=== PATIENT | male | born 1980 | race Hispanic/Latino ===

== ENCOUNTER 2017-01-04 16:51 | Inpatient (IN) | payer MEDICAID, OTHER ==
[2017-01-04] MEDS ORDERED: Morphine 2 mg/ml ISec IVP STA ×2 (17:14→18:08)
[2017-01-04] MEDS: Sodium Chloride 0.9% 1,000 ML IV SCH (17:22)
--- NOTE | 2017-01-04 17:22 | ED PDOC ---
Arrival/HPI - General Chief Complaint: Back Pain Time Seen by Provider: 01/04/17 17:05 Historian: Patient - History of Present Illness Narrative History of Present Illness (Text): 01/04/17 17:23 A 36 year old male, whose past medical history includes kidney stones, presents to the emergency department complaining of left and right sided flank pain, nausea and vomiting that developed two days ago. Patient also reports abdominal pain, right testicular pain and appetite changes but denies any fever, chills, shortness of breath, chest pain or any other complaints at this time. PMD: None Time/Duration: Other (2 days) Symptom Onset: Sudden Symptom Course: Unchanged Activities at Onset: Rest Context: Home Past Medical History - Provider Review Nursing Documentation Reviewed: Yes - Past History Past History: Non-Contributing - Infectious Disease Hx of Infectious Diseases: None, MRSA - Tetanus Immunization Tetanus Immunization: >10 years Ago - Past Medical History Past Medical History: Non-Contributing - Cardiac Hx Cardiac Disorders: No - Pulmonary Hx Respiratory Disorders: No - Neurological Hx Neurological Disorder: No - HEENT Hx HEENT Disorder: No - Renal Hx Renal Disorder: No - Endocrine/Metabolic Hx Endocrine Disorders: No - Hematological/Oncological Hx Blood Disorders: No - Integumentary Hx Dermatological Disorder: Yes (Psoriasis (Left Forearm and Scrotum)) Hx Psoriasis: Yes - Musculoskeletal/Rheumatological Hx Musculoskeletal Disorders: Yes (Sciatica) Hx Back Pain: Yes Hx Falls: No - Gastrointestinal Hx Gastrointestinal Disorders: No - Genitourinary/Gynecological Hx Genitourinary Disorders: No - Psychiatric Hx Psychophysiologic Disorder: No Hx Substance Use: No - Past Surgical History Past Surgical History: Non-Contributing - Surgical History Other/Comment: 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 - Anesthesia Hx Anesthesia: No - Suicidal Assessment Feels Threatened In Home Enviroment: No Family/Social History - Physician Review Nursing Documentation Reviewed: Yes Family/Social History: No Known Family HX Smoking Status: Former Smoker Hx Alcohol Use: No Hx Substance Use: No Hx Substance Use Treatment: No Allergies/Home Meds Allergies/Adverse Reactions: Allergies sun Allergy (Uncoded 01/04/17 17:03) SWELLING Home Medications: Home Meds Medication Instructions Recorded Confirmed No Known Home Med 01/04/17 01/04/17 Review of Systems - Physician Review All systems were reviewed & negative as marked: Yes - Review of Systems Constitutional: absent: Fevers, Other (chills) Respiratory: absent: SOB Cardiovascular: absent: Chest Pain Gastrointestinal: Abdominal Pain, Nausea, Vomiting, Appetite Changes Genitourinary Male: Other (right testicular pain) Musculoskeletal: Back Pain (right and left sided flank pain) Physical Exam - Physical Exam Narrative Physical Exam (Text): 01/04/17 17:21 Head: Atraumatic. Normocephalic. Eyes: PERRL. EOMI. Conjunctivae are not pale. ENT: Mucous membranes are moist and intact. Oropharynx is clear and symmetric. Neck: Supple. Full ROM. No JVD. No lymphadenopathy. Cardiovascular: Tachycardic. Pulmonary/Chest: No evidence of respiratory distress. Clear to auscultation bilaterally. No wheezing, rales or rhonchi. Abdominal: Soft and non-distended. There is no tenderness. No rebound, guarding, or rigidity. No organomegaly. Good bowel sounds. Back: No CVA tenderness. Genitourinary: No testicular erythema, edema or masses. Extremities: No edema. No cyanosis. No clubbing. Full range of motion in all extremities. No calf tenderness. Skin: Diaphoretic. Neurological: Alert, awake, and oriented to person, place, time, and situation. Normal speech. Psychiatric: Good eye contact. Normal interaction, affect, and behavior. Vital Signs Reviewed: Yes Vital Signs Temp Pulse Resp BP Pulse Ox 01/04/17 18:24 82 18 149/98 H 01/04/17 17:00 98 F 142 H 17 153/100 H 97 Temperature: Afebrile Blood Pressure: Hypertensive Pulse: Tachycardic Respiratory Rate: Normal Appearance: Positive for: Uncomfortable Pain Distress: Mild Mental Status: Positive for: Alert and Oriented X 3 Medical Decision Making ED Course and Treatment: 01/04/17 17:19 Impression: A 36 year old male with left and right sided flank pain, nausea and vomiting. Differential Diagnosis included but are not limited to: renal colic vs. biliary colic vs. colitis Plan: -- EKG -- chest xray -- CT abd/pelvis -- labs -- Urinalysis -- Morphine, IV fluids, Toradol, Zofran -- Reassess and disposition Prior Visits: Notes and results from previous visits were reviewed. Patient was last seen in the emergency department on 03/06/16 for evaluation of bilateral eye soreness and redness. Progress Notes: 01/04/17 18:11 CT Abdomen and Pelvis without intravenous contrast Creator : RAMYA JHOANSEN MD FINDINGS: LOWER THORAX: No infiltrate. Noncalcified 5 mm left lower lobe nodule (series 2 , image 21). No followup required as per Fleischner society criteria. LIVER: Normal size and contour. Diffusely diminished attenuation consistent with fatty infiltration. No mass. No biliary ductal dilatation. GALLBLADDER AND BILE DUCTS: Unremarkable. PANCREAS: Unremarkable. No gross lesion or ductal dilatation. SPLEEN: Unremarkable. ADRENALS: Unremarkable. No mass. KIDNEYS AND URETERS: Unremarkable. No hydronephrosis. No solid mass. No urinary calculus. No hydroureter. VASCULATURE: Unremarkable. No aortic aneurysm. BOWEL: Sigmoid diverticulosis. No evidence of diverticulitis. No bowel obstruction. No other abnormal bowel loops are identified. APPENDIX: Unremarkable. Normal appendix. PERITONEUM: Unremarkable. No free fluid. No free air. LYMPH NODES: Unremarkable. No enlarged lymph nodes. BLADDER: Unremarkable. REPRODUCTIVE: Normal prostate BONES: Degenerative disc disease at L4-5. No acute fracture. IMPRESSION: No evidence of urinary calculus. Fatty infiltration of the liver. Degenerative disc disease at L4-5. 01/04/17 18:59 CHEST RADIOGRAPH, 1 VIEW Creator : Jesus Elder MD IMPRESSION: No active disease. US Abdomen Complete FINDINGS: Liver: There is diffuse increased echogenicity to the liver. There is hepatopedal flow in the main portal vein. Gallbladder: Gallbladder is distended with no stones, sludge or wall thickening. Common bile duct: Common bile duct measures 4.9 mm in diameter. Pancreas: Pancreas is almost completely obscured by bowel gas. Kidneys: Kidneys are unremarkable. Spleen:Spleen is unremarkable. Aorta: Body habitus limits visualization of aorta and inferior vena cava. Inferior vena cava: See above. IMPRESSION: Fatty liver; no gallstones or ductal dilatation; no hydronephrosis Dictated and Authenticated by: Staci Buck MD 01/04/2017 8:29 PM Eastern Time ([place] & [place]) 01/04/17 20:35 Prior to patient's lab work coming back, patient's prior visits and labs were reviewed. Patient denied any allergies or renal history. Toradol and morphine were ordered prior to patient's labs being available on today's visit. - Lab Interpretations Lab Results: 01/04/17 17:20 01/04/17 17:20 Lab Results 01/04/17 17:45: Urine Color Yellow, Urine Appearance Clear, Urine pH 6.0, Ur Specific [place] 1.010, Urine Protein 30 H, Urine Glucose (UA) 100 H, Urine Ketones Negative, Urine Blood Trace-lysed H, Urine Nitrate Negative, Urine Bilirubin Negative, Urine Urobilinogen 0.2, Ur Leukocyte Esterase Negative, Urine RBC 1 - 3, Urine WBC 0 - 2 01/04/17 17:20: Sodium 138, Potassium 4.0, Chloride 99, Carbon Dioxide 23, Anion Gap 20, BUN 34 H, Creatinine 6.0 H, Est GFR ( Amer) 13, Est GFR ( Non-Af Amer) 11, Random Glucose 222 H, Calcium 10.9 H, Total Bilirubin 1.0, AST 27, ALT 65 H, Alkaline Phosphatase 86, Lactate Dehydrogenase 502, Total Creatine Kinase 35, Troponin I < 0.01, Total Protein 7.5, Albumin 4.5, Globulin 3.0, Albumin/Globulin Ratio 1.5, Amylase 56, Lipase 80 01/04/17 17:20: PT 11.4, INR 1.06, APTT 27.9 01/04/17 17:20: WBC 8.4 D, RBC 5.18, Hgb 15.6, Hct 41.7 L, MCV 80.5, MCH 30.1, MCHC 37.4 H, RDW 12.4, Plt Count 172, MPV 10.2, Gran % 71.0 H, Lymph % (Auto) 18.7 L, [place] % (Auto) 9.4 H, Eos % (Auto) 0.5 L, Baso % (Auto) 0.4, Gran # 5.94 , Lymph # 1.6, [place] # 0.8 H, Eos # 0.0, Baso # 0.03 I have reviewed the lab results: Yes - RAD Interpretation Radiology Orders: 01/04/17 17:15 ABD & PELVIS W/O PO OR IV CONT [CT] Stat CHEST ONE VIEW [RAD] Stat 01/04/17 18:37 ABDOMEN COMPLETE [US] Stat - EKG Interpretation Interpreted by ED Physician: Yes Type: 12 lead EKG - Medication Orders Current Medication Orders: Sodium Chloride (Sodium Chloride 0.9%) 1,000 mls @ 100 mls/hr IV .Q10H [facility] Last Admin: 01/04/17 17:22 Dose: 100 mls/hr Sodium Chloride (Sodium Chloride 0.9%) 1,000 mls @ 999 mls/hr IV .Q1H1M STA Stop: 01/04/17 21:29 Morphine Sulfate (Morphine) 2 mg IVP Q4H PRN PRN Reason: Pain, moderate (4-7) Morphine Sulfate (Morphine) 4 mg IVP Q3H PRN PRN Reason: Pain, severe (8-10) Ondansetron HCl (Zofran Inj) 4 mg IVP Q6 PRN PRN Reason: Nausea/Vomiting Discontinued Medications Ketorolac Tromethamine (Toradol) 30 mg IVP ONCE ONE Stop: 01/04/17 17:15 Last Admin: 01/04/17 17:22 Dose: 30 mg Morphine Sulfate (Morphine) 2 mg IVP STAT STA Stop: 01/04/17 17:15 Last Admin: 01/04/17 17:20 Dose: 2 mg Morphine Sulfate (Morphine) 2 mg IVP STAT STA Stop: 01/04/17 18:09 Last Admin: 01/04/17 18:41 Dose: 2 mg Ondansetron HCl (Zofran Inj) 4 mg IVP ONCE ONE Stop: 01/04/17 17:15 Last Admin: 01/04/17 17:22 Dose: 4 mg - Scribe Statement The provider has reviewed the documentation as recorded by the Judy Chopra Provider Scribe Attestation: All medical record entries made by the Judy were at my direction and personally dictated by me. I have reviewed the chart and agree that the record accurately reflects my personal performance of the history, physical exam, medical decision making, and the department course for this patient. I have also personally directed, reviewed, and agree with the discharge instructions and disposition. Disposition/Present on Arrival - Present on Arrival History of DVT/PE: No History of Uncontrolled Diabetes: No Urinary Catheter: No History of Decub. Ulcer: No History Surgical Site Infection Following: None - Disposition
[2017-01-04 17:40] LABS: BASO # 0.03 K/mm3 (0.0-2.0); BASO % 0.4 % (0.0-3.0); EOS % 0.5 % (1.5-5.0); GRAN # 5.94 (1.4-6.5); HEMOGLOBIN 15.6 g/dL (14.0-18.0); LYMPH # 1.6 (1.2-3.4); LYMPH % 18.7 % (22.0-35.0); MEAN CELL VOLUME 80.5 fl (80.0-105.0); MEAN CORPUSCULAR HEMOGLOBIN 30.1 pg (25.0-35.0); MEAN CORPUSCULAR HGB CONC 37.4 g/dl (31.0-37.0); MEAN PLATELET VOLUME 10.2 fl (7.0-11.0); MONO # 0.8 (0.1-0.6); MONO % 9.4 % (1.0-6.0); PLATELET COUNT 172 10^3/uL (120.0-450.0); RBC 5.18 10^6/uL (3.5-6.1); RED CELL DISTRIBUTION WIDTH 12.4 % (11.5-14.5); WHITE BLOOD COUNT 8.4 10^3/ul (4.5-11.0)
[2017-01-04 17:50] LABS: ALB/GLOB RATIO 1.5 (1.1-1.8); ALBUMIN 4.5 g/dL (3.0-4.8); ALT/SGPT 65 U/L (7-56); AMYLASE 56 U/L (35-125); AST/SGOT 27 U/L (15-59); BLOOD UREA NITROGEN 34 mg/dL (7-21); CALCIUM 10.9 mg/dL (8.4-10.5); GFR AFRICAN-AMERICAN 13; GFR NON-AFRICAN AMERICAN 11; LIPASE 80 U/L (23-300)
[2017-01-04 17:51] LABS: INR 1.06 (0.93-1.08); PARTIAL THROMBOPLASTIN TIME 27.9 Seconds (23.7-30.8); PROTHROMBIN TIME 11.4 Seconds (9.9-11.8)
[2017-01-04 18:04] LABS: TROPONIN I < 0.01 ng/mL
--- NOTE | 2017-01-04 18:09 | CT ---
PROCEDURE: CT Abdomen and Pelvis without intravenous contrast HISTORY: severe back pain COMPARISON: None. TECHNIQUE: Without contrast.. Contrast Dose: 0 Radiation dose: Total exam DLP = 1408.74 mGy-cm. This CT exam was performed using one or more of the following dose reduction techniques: Automated exposure control, adjustment of the mA and/or kV according to patient size, and/or use of iterative reconstruction technique. FINDINGS: LOWER THORAX: No infiltrate. Noncalcified 5 mm left lower lobe nodule (series 2, image 21). No followup required as per Fleischner society criteria. LIVER: Normal size and contour. Diffusely diminished attenuation consistent with fatty infiltration. No mass. No biliary ductal dilatation. GALLBLADDER AND BILE DUCTS: Unremarkable. PANCREAS: Unremarkable. No gross lesion or ductal dilatation. SPLEEN: Unremarkable. ADRENALS: Unremarkable. No mass. KIDNEYS AND URETERS: Unremarkable. No hydronephrosis. No solid mass. No urinary calculus. No hydroureter. VASCULATURE: Unremarkable. No aortic aneurysm. BOWEL: Sigmoid diverticulosis. No evidence of diverticulitis. No bowel obstruction. No other abnormal bowel loops are identified. APPENDIX: Unremarkable. Normal appendix. PERITONEUM: Unremarkable. No free fluid. No free air. LYMPH NODES: Unremarkable. No enlarged lymph nodes. BLADDER: Unremarkable. REPRODUCTIVE: Normal prostate BONES: Degenerative disc disease at L4-5. No acute fracture. OTHER FINDINGS: None. IMPRESSION: No evidence of urinary calculus. Fatty infiltration of the liver. Degenerative disc disease at L4-5.
[2017-01-04 18:36] LABS: URINE BILIRUBIN NEGATIVE (NEGATIVE); URINE BLOOD TRACE-LYSED (NEGATIVE); URINE GLUCOSE (UA) 100 mg/dL (NEGATIVE); URINE LEUKOCYTE ESTERASE NEGATIVE Leu/uL (NEGATIVE); URINE NITRATE NEGATIVE (NEGATIVE); URINE PROTEIN 30 mg/dL (<30 mg/dL); URINE UROBILINOGEN 0.2 E.U./dL (<1 E.U./dL)
[2017-01-04 18:37] LABS: URINE APPEARANCE CLEAR (CLEAR); URINE COLOR YELLOW (YELLOW)
[2017-01-04 18:48] LABS: URINE WBC 0 - 2 /hpf (0-6)
--- NOTE | 2017-01-04 18:57 | RAD ---
PROCEDURE: CHEST RADIOGRAPH, 1 VIEW HISTORY: back pain COMPARISON: None available. FINDINGS: LUNGS: Clear. PLEURA: No pneumothorax or pleural fluid seen. CARDIOVASCULAR: No radiographic findings to suggest acute or significant cardiovascular disease. OSSEOUS STRUCTURES: No significant abnormalities. VISUALIZED UPPER ABDOMEN: Normal. OTHER FINDINGS: None. IMPRESSION: No active disease.
[2017-01-04] MEDS ORDERED: Sodium Chloride 0.9% 1,000 ML IV STA (20:29)
--- NOTE | 2017-01-04 20:29 | US ---
EXAM: US Abdomen Complete CLINICAL HISTORY: 36 years old, male; Pain; Abdominal pain; Additional info: Back pain TECHNIQUE: Real-time ultrasound of the abdomen (complete) with image documentation. EXAM DATE/TIME: 01/04/2017 6:37 PM COMPARISON: CT - ABD PELVIS W/O PO OR IV CONT 01/04/2017 5:28:47 PM FINDINGS: Liver: There is diffuse increased echogenicity to the liver. There is hepatopedal flow in the main portal vein. Gallbladder: Gallbladder is distended with no stones, sludge or wall thickening. Common bile duct: Common bile duct measures 4.9 mm in diameter. Pancreas: Pancreas is almost completely obscured by bowel gas. Kidneys: Kidneys are unremarkable. Spleen:Spleen is unremarkable. Aorta: Body habitus limits visualization of aorta and inferior vena cava. Inferior vena cava: See above. IMPRESSION: Fatty liver; no gallstones or ductal dilatation; no hydronephrosis
--- NOTE | 2017-01-04 20:42 | CP.PCM.HP ---
History of Present Illness - History of Present Illness History of Present Illness: CC: Back pain x 2 days HPI: 36 y/o male with a PMHx Renal stones, Lumbar disc degeneration presents to the ED with a 2 day history of sharp lower back pain which woke him up from his sleep around 2am. He also reports a sudden sensation of nausea and vomiting nonbilious nonbloody fluid for 1 day. He reports 2-3 episodes of vomiting which have since resolved. He came to the ED because his back pain persisted and did not improve. He feels that this pain is different in nature compared to his usual lumbar disc related back pain as well as different from his renal stones in the past. He also reported intermittent pain in his scrotum which has resolved as of this morning. He denies any complaints of fever, chills, dysuria, diarrhea, headache, dizziness, light headedness. He does also report decreased appetite and says he has not eaten since the pain started. Jenkins noting, he reports taking enteric coated aspirin (he does not know if it is 325mg or 81mg) approximately 3-4x pr week in order to deal with his pain for the past 4 years. PMhx: psoriasis lumbar disc degeneration history of renal stones Allergies: sunlight - causes extreme sunburns Fam Hx: reviewed and noncontributory Soc Hx: denies tobacco use/alcohol use only 3-4x per year/denies illicit drug use Meds: Aspirin - dose unknown 3-4x per week Present on Admission - Present on Admission Any Indicators Present on Admission: No Review of Systems - Review of Systems Review of Systems: As per HPI otherwise negative for a 12 point review of systems Past Patient History - Infectious Disease Hx of Infectious Diseases: None, MRSA - Tetanus Immunizations Tetanus Immunization: >10 years Ago - Past Social History Smoking Status: Former Smoker - CARDIAC Hx Cardiac Disorders: No - PULMONARY Hx Respiratory Disorders: No - NEUROLOGICAL Hx Neurological Disorder: No - HEENT Hx HEENT Problems: No - RENAL Hx Chronic Kidney Disease: No - ENDOCRINE/METABOLIC Hx Endocrine Disorders: No - HEMATOLOGICAL/ONCOLOGICAL Hx Blood Disorders: No - INTEGUMENTARY Hx Dermatological Problems: Yes (Psoriasis (Left Forearm and Scrotum)) Hx Psoriasis: Yes - MUSCULOSKELETAL/RHEUMATOLOGICAL Hx Musculoskeletal Disorders: Yes (Sciatica) Hx Back Pain: Yes Hx Falls: No - GASTROINTESTINAL Hx Gastrointestinal Disorders: No - GENITOURINARY/GYNECOLOGICAL Hx Genitourinary Disorders: No - PSYCHIATRIC Hx Psychophysiologic Disorder: No Hx Substance Use: No - SURGICAL HISTORY Other/Comment: 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 absent: Wheezes, Respiratory Distress - Cardiovascular Exam Cardiovascular Exam: REGULAR RHYTHM, +S1, +S2 - GI/Abdominal Exam GI & Abdominal Exam: Normal Bowel Sounds, Soft. absent: Guarding, Rebound, Tenderness - Rectal Exam Rectal Exam: Deferred - Extremities Exam Extremities exam: Positive for: normal inspection. Negative for: calf tenderness - Back Exam Back exam: absent: CVA tenderness (L), CVA tenderness (R) - Neurological Exam Neurological exam: Alert, Oriented x3 - Psychiatric Exam Psychiatric exam: Normal Affect, Normal Mood - Skin Skin Exam: Dry, Intact, Normal Color, Warm Results - Vital Signs Recent Vital Signs: Last Vital Signs Temp 98 F 01/04/17 17:00 Pulse 82 01/04/17 18:24 Resp 18 01/04/17 18:24 BP 149/98 H 01/04/17 18:24 Pulse Ox 97 01/04/17 17:00 - Labs Result Diagrams: 01/04/17 17:20 01/04/17 17:20 - EKG Data EKG Interpreted by: Myself EKG shows normal: Sinus rhythm Rate: Normal (NSR @ 85bpm; no st elevations or depressions noted) Assessment & Plan - Assessment and Plan (Free Text) Assessment: 36 y/o male with PMHx Lumbar disc degeneration, psoriasis and history of renal stones presents to the Ed with 2 days worth of back pain along with nausea and vomiting. He's found to have acute renal failure on his labwork and will be admitted and treated to further evaluate the cause. Plan: 1) Acute renal failure - CT Abd/pelvis (noncontrast) did not show a stone; no hydro; will follow up renal ultrasound; IVF bolus followed by 100cc/hr. Patient reports no change in making urine; no dysuria or hematuria noted. Will send urine lytes and obtain nephro consult; will check Salicylate level and urine drug screen. Repeat lab work in the AM. 2) Hyperglycemia - elevated glucose on chemistry despite not eating for 2 days; mild glucosuria; will check A1c in the AM 3) GI/DVT ppx - will place him on a renal diet; SCD's for ppx
--- NOTE | 2017-01-04 20:46 | CARD ---
APPROVED REPORT EKG Measurement Heart [id number] MA [id number] [id number] <Conclusion> Normal sinus rhythm Normal ECG
[2017-01-04 22:48] LABS: BARBITURATES, UR NEGATIVE (NEGATIVE); BENZODIAZEPINES, UR NEGATIVE (NEGATIVE); OPIATES, UR POSITIVE (NEGATIVE); PHENCYCLIDINE, UR NEGATIVE (NEGATIVE)
[2017-01-04 23:09] VITALS: BMI 43.7
[2017-01-04] MEDS ORDERED: Pneumococcal 23-Valent Vaccine IM ONE (23:09)
[2017-01-05] MEDS: Morphine 2 mg/ml ISec IVP PRN ×4 (03:41→18:21)
[2017-01-05] MEDS: Sodium Chloride 0.9% 1,000 ML IV SCH ×2 (06:35→16:12)
[2017-01-05] MEDS: Morphine 4 mg/ml ISec IVP PRN ×2 (06:38→23:29)
[2017-01-05 07:47] LABS: BASO # 0.02 K/mm3 (0.0-2.0); BASO % 0.3 % (0.0-3.0); EOS # 0.1 (0.0-0.7); EOS % 1.1 % (1.5-5.0); GRAN # 4.99 (1.4-6.5); GRAN % 69.4 % (50.0-68.0); HEMOGLOBIN 14.8 g/dL (14.0-18.0); LYMPH # 1.3 (1.2-3.4); LYMPH % 18.2 % (22.0-35.0); MEAN CELL VOLUME 82.2 fl (80.0-105.0); MEAN CORPUSCULAR HEMOGLOBIN 29.9 pg (25.0-35.0); MEAN CORPUSCULAR HGB CONC 36.4 g/dl (31.0-37.0); MEAN PLATELET VOLUME 10.2 fl (7.0-11.0); MONO # 0.8 (0.1-0.6); PLATELET COUNT 150 10^3/uL (120.0-450.0); RBC 4.95 10^6/uL (3.5-6.1); RED CELL DISTRIBUTION WIDTH 12.5 % (11.5-14.5); WHITE BLOOD COUNT 7.2 10^3/ul (4.5-11.0)
[2017-01-05 07:50] LABS: ALB/GLOB RATIO 1.3 (1.1-1.8); ALBUMIN 3.9 g/dL (3.0-4.8); CALCIUM 9.6 mg/dL (8.4-10.5)
--- NOTE | 2017-01-05 14:28 | CP.PCM.PN ---
<Lamberto Kaiser - Last Filed: 01/05/17 15:16> Subjective - Date & Time of Evaluation Date of Evaluation: 01/05/17 Time of Evaluation: 07:15 - Subjective Subjective: Lamberto Kaiser DO, PGY-[address] Gillis Patient seen and examined at bedside. Nurse reports no events overnight. Patient admits to back pain, but denies chest pain, fever, chills, SOB, N/V/D. Objective - Vital Signs/Intake and Output Vital Signs (last 24 hours): Temp Pulse Resp BP Pulse Ox 98.4 F 70 22 150/103 H 97 01/05/17 05:48 01/05/17 05:57 01/05/17 05:48 01/05/17 05:48 01/05/17 05:48 Intake and Output: 01/05/17 01/05/17 06:59 18:59 Intake Total 1400 Balance 1400 - Medications Medications: Current Medications Sodium Chloride (Sodium Chloride 0.9%) 1,000 mls @ 100 mls/hr IV .Q10H [facility] Last Admin: 01/05/17 06:35 Dose: 100 mls/hr Morphine Sulfate (Morphine) 2 mg IVP Q4H PRN PRN Reason: Pain, moderate (4-7) Last Admin: 01/05/17 13:15 Dose: 2 mg Morphine Sulfate (Morphine) 4 mg IVP Q3H PRN PRN Reason: Pain, severe (8-10) Last Admin: 01/05/17 06:38 Dose: 4 mg Ondansetron HCl (Zofran Inj) 4 mg IVP Q6 PRN PRN Reason: Nausea/Vomiting Pantoprazole Sodium (Protonix Ec Tab) 40 mg PO 0600 [facility] - Labs Labs: 01/05/17 06:00 01/05/17 06:00 PT 11.4 Seconds (9.9-11.8) 01/04/17 17:20 INR 1.06 (0.93-1.08) 01/04/17 17:20 APTT 27.9 Seconds (23.7-30.8) 01/04/17 17:20 - Head Exam Additional comments: - Constitutional Appears: Well, Non-toxic, No Acute Distress - Head Exam Head Exam: ATRAUMATIC, NORMOCEPHALIC - Eye Exam Eye Exam: EOMI - ENT Exam ENT Exam: Mucous Membranes Moist, Normal Exam - Neck Exam Neck exam: Positive for: Normal Inspection - Respiratory Exam Respiratory Exam: Clear to Auscultation Bilateral, NORMAL BREATHING PATTERN. absent: Wheezes, Respiratory Distress - Cardiovascular Exam Cardiovascular Exam: REGULAR RHYTHM, +S1, +S2 - GI/Abdominal Exam GI & Abdominal Exam: Normal Bowel Sounds, Soft. absent: Guarding, Rebound, Tenderness - Rectal Exam Rectal Exam: Deferred - Extremities Exam Extremities exam: Positive for: normal inspection. Negative for: calf tenderness - Back Exam Back exam: absent: CVA tenderness (L), CVA tenderness (R) - Neurological Exam Neurological exam: Alert, Oriented x3 - Psychiatric Exam Psychiatric exam: Normal Affect, Normal Mood - Skin Skin Exam: Dry, Intact, Normal Color, Warm Assessment and Plan - Assessment and Plan (Free Text) Assessment: 36 y/o male with PMHx Lumbar disc degeneration, psoriasis and history of renal stones presents to the Ed with 2 days worth of back pain along with nausea and vomiting. He's found to have acute renal failure on his lab work and will be admitted and treated to further evaluate the cause. Plan: 1) NSAID-induced nephropathy: Risk factors for this patient include chronic use of Ibuprofen and Aspirin and recent volume depletion from vomiting CT Abdomen/pelvis showed no evidence of urinary calculi or hydronephrosis. Creatinine elevated at 6.0, serum Ca 10.9, Phosphorus 5.4 Uosm of 337, Usodium of 55, Upotassium of 21.6 LINNEA, complement C3/C4, urine eosinophils ordered Nephrology consulted, appreciate recommendations. 2) Hypertension, could be secondary to relative volume depletion Amlodipine 5 mg PO 3) Analgesia Morphine PRN and to avoid use of NSAIDs 4) GI prophylaxis with 40 mg Protonix 5) Nausea Zofran 4 mg q6h <Carlin BARRIENTOS,[facility] - Last Filed: 01/05/17 16:27> Objective - Vital Signs/Intake and Output Vital Signs (last 24 hours): Temp Pulse Resp BP Pulse Ox 98.4 F 70 22 126/87 97 01/05/17 05:48 01/05/17 05:57 01/05/17 05:48 01/05/17 16:12 01/05/17 05:48 Intake and Output: 01/05/17 01/05/17 06:59 18:59 Intake Total 1400 480 Output Total 500 Balance 1400 -20 - Medications Medications: Current Medications Amlodipine Besylate (Norvasc) 5 mg PO DAILY [facility] Last Admin: 01/05/17 16:12 Dose: 5 mg Hydralazine HCl (Apresoline) 25 mg PO Q4 PRN PRN Reason: Other Sodium Chloride (Sodium Chloride 0.9%) 1,000 mls @ 100 mls/hr IV .Q10H [facility] Last Admin: 01/05/17 16:12 Dose: 100 mls/hr Methylprednisolone 500 mg/ (Sodium Chloride) 100 mls @ 200 mls/hr IVPB DAILY [facility] Stop: 01/07/17 10:01 Last Admin: 01/05/17 16:14 Dose: 200 mls/hr Morphine Sulfate (Morphine) 2 mg IVP Q4H PRN PRN Reason: Pain, moderate (4-7) Last Admin: 01/05/17 13:15 Dose: 2 mg Morphine Sulfate (Morphine) 4 mg IVP Q3H PRN PRN Reason: Pain, severe (8-10) Last Admin: 01/05/17 06:38 Dose: 4 mg Ondansetron HCl (Zofran Inj) 4 mg IVP Q6 PRN PRN Reason: Nausea/Vomiting Pantoprazole Sodium (Protonix Ec Tab) 40 mg PO 0600 [facility] - Labs Labs: 01/05/17 06:00 01/05/17 06:00 PT 11.4 Seconds (9.9-11.8) 01/04/17 17:20 INR 1.06 (0.93-1.08) 01/04/17 17:20 APTT 27.9 Seconds (23.7-30.8) 01/04/17 17:20 Attending/Attestation - Attestation I have personally seen and examined this patient.: Yes I have fully participated in the care of the patient.: Yes I have reviewed all pertinent clinical information, including history, physical exam and plan: Yes Notes (Text): 01/05/17 16:24 Patient was seen and examined with medical records receptionist. Agreed with resident assessment and plan. 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 Management plan was discussed in detail with patient Education was provided.
--- NOTE | 2017-01-05 15:29 | CP.PCM.CON ---
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 Hypertension control with meds as ordered. Patient not on ACEI/ARB due to BENJIE. will add norvasc 5 mg/day Monitor Input/Output, daily weights and renal function with basic metabolic panel will start solumedrol 500 mg/day x 3 dose may consider kidney biopsy but hx and urine exam consistent with AIN Check urine spot protein/creatinine and albumin/creatinine ratio, renal sonogram. Urine for eosinophils, CPK Check GN work up as C3, C4, LINNEA, Anti dsDNA, ANCA (MPO and [place]-3), HIV/Hep B and Hep C serology (along with rheumatoid factor Dose meds/antibiotics for reduced GFR. <10 Avoid fleets enema/magnesium based laxatives. Avoid nephrotoxins/NSAIDs/ iodinated contrast (unless needed emergently) Glycemic control Further work up/management as per primary team Thanks for allowing me to participate in care of your patient. Will follow patient with you. Please call if any Qs. d/w team Dr Elliott Carmichael Office: [phone] Chief Complaint; back pain HPI: Pt is a 36 y/o M without any known significant past medical hx except chronic back pain and has been taking ibuprofen for last years came to ER c/o worsnieng back and lower abdomen pain also had nausea and decreased oral intake for last 2 days. found to have cr 6 hence renal consulted he denies hx of DM, HTN, CKD Denies chest pain, palpitation, shortness of breath, leg swelling Denies blood or bubbles in urine Denies OTC/herbal meds but takes NSAIDs No recent iodinated contrast exposure. No obvious episodes of low BP. ROS: Constitutional Symptoms: Denies fever. No chills. No Recent Weight Changes Eyes: denies change in vision, denies watery eyes, denies double vision Ears/Nose/Mouth/Throat: Denies Abnormal Taste. No Bad breath no Bad Taste. Cardiovascular: No chest pain. There is no shortness of breath. No palpitations. Pulmonary: No shortness of breath no cough. Gastrointestinal: c/o lower abdominal pain c/o nausea. No vomiting. Denies change in bowel habits. Denies Bleeding Genitourinary: No Change in force of strain when urinating. No increase in urinary frequency. No pain while urinating. Denies blood in urine. Neurological: Denies headaches. No dizziness. Denies loss of balance. Denies weakness, denies tingling/numbness Dermatological: No Rash or Bruising or ulcers. Psychiatric: Denies Anxiety. No depression. Denies hallucinations. Rheumatological: c/o lower back joint pain. Denies Joint swelling Endocrine: Denies tiredness/Fatigue denies Heat/Cold Intolerance. All other negative\ Physical Examination: General Appearance: Comfortable, in no acute respiratory distress, co-operative . Obese Vitals reviewed and noted as below Head; Atraumatic, normocephalic ENT: no ulcers no thrush. Tongue is midline. Oropharynx: no rash or ulcers. EYES: Pupils are equal, round and reactive to light accommodation. Eye muscles and extraocular movement intact. Sclera is anicteric. Neck; supple no lymphadenopathy, no thyromegaly or bruit Lungs: Normal respiratory rate/effort. Breath sounds bilateral equal and clear Heart: Normal rate. s1s2 normal. No rub or gallop. Extremities: no edema. No varicose veins Neurological: Patient is alert, awake and oriented to person, place and time. No focal deficit. Strength bilateral appropriate and equal Skin: Warm and dry. Normal turgor. No rash. Palpitation: Normal elasticity for age Abdomen: Abdomen is soft. Bowel sounds +. There is mild lower abdominal tenderness, no guarding/rigidity no organomegaly Psych: normal insight and normal affect/mood MSK: no joint tenderness or swelling. Digits and nails normal, no deformity : kidney or bladder not palpable Labs/imaging/EKG reviewed. Past medical history, past surgical history, family history, social history, allergy reviewed and noted as below Family hx: no hx of CKD. Rest non-contributory Work up: Imaging unremarkable for kidneys UA done by showed trace blood an trace protein with LE + numerous WBCs with WBCs casts were seen. Past Patient History - Infectious Disease Hx of Infectious Diseases: None, MRSA - Tetanus Immunizations Tetanus Immunization: >10 years Ago - Past Social History Smoking Status: Former Smoker - CARDIAC Hx Cardiac Disorders: No - PULMONARY Hx Respiratory Disorders: No - NEUROLOGICAL Hx Neurological Disorder: No - HEENT Hx HEENT Problems: Yes (eyeglasses) - RENAL Hx Chronic Kidney Disease: No - ENDOCRINE/METABOLIC Hx Endocrine Disorders: No - HEMATOLOGICAL/ONCOLOGICAL Hx Blood Disorders: No - INTEGUMENTARY Hx Dermatological Problems: Yes (Psoriasis (Left Forearm and Scrotum)) Hx Psoriasis: Yes Other/Comment: psoriasis scalp, face, arms legs abd eyebrows testicles chest multiple dry patches of skin, pt suffered 2nd and 3rd degree nam to right hand 2 or 3 yrs ago while cooking, 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 - MUSCULOSKELETAL/RHEUMATOLOGICAL Hx Falls: No - GASTROINTESTINAL Hx Gastrointestinal Disorders: Yes (obesse) - GENITOURINARY/GYNECOLOGICAL Hx Genitourinary Disorders: No - PSYCHIATRIC Hx Substance Use: No - SURGICAL HISTORY Other/Comment: 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 - ANESTHESIA Hx Anesthesia: No Meds Allergies/Adverse Reactions: Allergies Allergy/AdvReac Type Severity Reaction Status Date / Time sun Allergy SWELLING Uncoded 01/04/17 17:03 - Medications Medications: Current Medications Amlodipine Besylate (Norvasc) 5 mg PO DAILY ON LICENSE OF [facility] Sodium Chloride (Sodium Chloride 0.9%) 1,000 mls @ 100 mls/hr IV .Q10H ON LICENSE OF [facility] Last Admin: 01/05/17 06:35 Dose: 100 mls/hr Methylprednisolone 500 mg/ (Sodium Chloride) 100 mls @ 200 mls/hr IVPB DAILY ON LICENSE OF [facility] Stop: 01/07/17 10:01 Morphine Sulfate (Morphine) 2 mg IVP Q4H PRN PRN Reason: Pain, moderate (4-7) Last Admin: 01/05/17 13:15 Dose: 2 mg Morphine Sulfate (Morphine) 4 mg IVP Q3H PRN PRN Reason: Pain, severe (8-10) Last Admin: 01/05/17 06:38 Dose: 4 mg Ondansetron HCl (Zofran Inj) 4 mg IVP Q6 PRN PRN Reason: Nausea/Vomiting Pantoprazole Sodium (Protonix Ec Tab) 40 mg PO 0600 ON LICENSE OF [facility] Results - Vital Signs Recent Vital Signs: Last Vital Signs Temp 98.4 F 01/05/17 05:48 Pulse 70 01/05/17 05:57 Resp 22 01/05/17 05:48 BP 150/103 H 01/05/17 05:48 Pulse Ox 97 01/05/17 05:48 - Labs Result Diagrams: 01/05/17 06:00 01/05/17 06:00 Labs: Laboratory Results - last 24 hr 01/04/17 01/04/17 01/05/17 22:00 22:00 06:00 WBC 7.2 RBC 4.95 Hgb 14.8 Hct 40.7 L MCV 82.2 MCH 29.9 MCHC 36.4 RDW 12.5 Plt Count 150 MPV 10.2 Gran % 69.4 H Lymph % (Auto) 18.2 L [place] % (Auto) 11.0 H Eos % (Auto) 1.1 L Baso % (Auto) 0.3 Gran # 4.99 Lymph # 1.3 [place] # 0.8 H Eos # 0.1 Baso # 0.02 Sodium Potassium Chloride Carbon Dioxide Anion Gap BUN Creatinine Est GFR ( Amer) Est GFR (Non-Af Amer) Random Glucose Calcium Phosphorus Total Bilirubin AST ALT Alkaline Phosphatase Total Protein Albumin Globulin Albumin/Globulin Ratio Urine Osmolality 337 Ur Random Sodium 55 Ur Random Potassium 21.6 Urine Opiates Screen Positive H Urine Methadone Screen Negative Ur Barbiturates Screen Negative Ur Phencyclidine Scrn Negative Ur Amphetamines Screen Negative U Benzodiazepines Scrn Negative U Oth Cocaine Metabols Negative U Cannabinoids Screen Negative 01/05/17 01/05/17 06:00 09:00 WBC RBC Hgb Hct MCV MCH MCHC RDW Plt Count MPV Gran % Lymph % (Auto) [place] % (Auto) Eos % (Auto) Baso % (Auto) Gran # Lymph # [place] # Eos # Baso # Sodium 141 Potassium 4.0 Chloride 103 Carbon Dioxide 27 Anion Gap 15 BUN 38 H Creatinine 6.0 H Est GFR ( Amer) 13 Est GFR (Non-Af Amer) 11 Random Glucose 111 H Calcium 9.6 Phosphorus 5.3 H Total Bilirubin 1.0 AST 31 ALT 59 H Alkaline Phosphatase 75 Total Protein 6.9 Albumin 3.9 Globulin 2.9 Albumin/Globulin Ratio 1.3 Urine Osmolality Ur Random Sodium Ur Random Potassium Urine Opiates Screen Urine Methadone Screen Ur Barbiturates Screen Ur Phencyclidine Scrn Ur Amphetamines Screen U Benzodiazepines Scrn U Oth Cocaine Metabols U Cannabinoids Screen
[2017-01-05] MEDS: methylPREDNISolone 500 MG in Sodium Chloride 0.9% 100 ML IVPB SCH (16:14)
[2017-01-05 17:46] LABS: COMPLEMENT C4 32.1 mg/dL (14.0-44.0)
[2017-01-05] MEDS: Pantoprazole 40 mg EC Tab PO SCH (21:25)
[2017-01-06] MEDS: Sodium Chloride 0.9% 1,000 ML IV SCH ×2 (06:12→09:21)
[2017-01-06] MEDS: Morphine 2 mg/ml ISec IVP PRN ×2 (06:18→11:35)
[2017-01-06] MEDS: Pantoprazole 40 mg EC Tab PO SCH (06:18)
[2017-01-06 07:01] LABS: BASO # 0.02 K/mm3 (0.0-2.0); BASO % 0.3 % (0.0-3.0); EOS # 0.1 (0.0-0.7); EOS % 1.4 % (1.5-5.0); GRAN # 4.54 (1.4-6.5); GRAN % 69.6 % (50.0-68.0); HEMOGLOBIN 14.8 g/dL (14.0-18.0); LYMPH # 1.2 (1.2-3.4); LYMPH % 18.6 % (22.0-35.0); MEAN CELL VOLUME 81.6 fl (80.0-105.0); MEAN CORPUSCULAR HEMOGLOBIN 29.7 pg (25.0-35.0); MEAN CORPUSCULAR HGB CONC 36.4 g/dl (31.0-37.0); MONO # 0.7 (0.1-0.6); MONO % 10.1 % (1.0-6.0); PLATELET COUNT 161 10^3/uL (120.0-450.0); RBC 4.99 10^6/uL (3.5-6.1); RED CELL DISTRIBUTION WIDTH 12.3 % (11.5-14.5); WHITE BLOOD COUNT 6.5 10^3/ul (4.5-11.0)
[2017-01-06 07:08] LABS: ALB/GLOB RATIO 1.3 (1.1-1.8); ALBUMIN 4.1 g/dL (3.0-4.8); ALT/SGPT 50 U/L (7-56); AST/SGOT 34 U/L (15-59); BLOOD UREA NITROGEN 39 mg/dL (7-21); CALCIUM 8.8 mg/dL (8.4-10.5); GFR AFRICAN-AMERICAN 16; GFR NON-AFRICAN AMERICAN 13
[2017-01-06 07:57] VITALS: RESP 18
[2017-01-06] MEDS: POLYETHYLENE GLYCOL 3350 17 GM/Dose PACKET PO PRN (09:15)
[2017-01-06] MEDS: methylPREDNISolone 500 MG in Sodium Chloride 0.9% 100 ML IVPB SCH (09:17)
[2017-01-06] MEDS ORDERED: Oxycodone/Acetaminophen 5/325 mg Tab PO PRN (13:06)
--- NOTE | 2017-01-06 13:10 | CP.PCM.PN ---
<Abi Tran - Last Filed: 01/06/17 14:19> Subjective - Date & Time of Evaluation Date of Evaluation: 01/06/17 Time of Evaluation: 09:00 - Subjective Subjective: Abi Tran DO, PGY-1, Internal Medicine, Hospitalist service Patient seen and examined at bedside. Per nursing, no acute events overnight. Patient is doing well, tolerating diet. c/o constipation. Pain is controlled. Denies headaches, dizziness, cp, sob, abdominal pain, urinary symptoms. Objective - Vital Signs/Intake and Output Vital Signs (last 24 hours): Temp Pulse Resp BP Pulse Ox 97.7 F 80 18 141/105 H 94 L 01/06/17 07:57 01/06/17 09:20 01/06/17 07:57 01/06/17 09:20 01/06/17 07:57 Intake and Output: 01/06/17 01/06/17 06:59 18:59 Intake Total 720 Output Total 2300 Balance -1580 - Medications Medications: Current Medications Amlodipine Besylate (Norvasc) 5 mg PO DAILY [facility] Last Admin: 01/06/17 09:20 Dose: 5 mg Docusate Sodium (Colace) 100 mg PO BID [facility] Last Admin: 01/06/17 09:15 Dose: 100 mg Hydralazine HCl (Apresoline) 25 mg PO Q4 PRN PRN Reason: Other Last Admin: 01/06/17 07:25 Dose: 25 mg Sodium Chloride (Sodium Chloride 0.9%) 1,000 mls @ 100 mls/hr IV .Q10H [facility] Last Admin: 01/06/17 09:21 Dose: 100 mls/hr Methylprednisolone 500 mg/ (Sodium Chloride) 100 mls @ 200 mls/hr IVPB DAILY [facility] Stop: 01/07/17 10:01 Last Admin: 01/06/17 09:17 Dose: 200 mls/hr Ondansetron HCl (Zofran Inj) 4 mg IVP Q6 PRN PRN Reason: Nausea/Vomiting Last Admin: 01/06/17 06:18 Dose: 4 mg Oxycodone/Acetaminophen (Percocet 5/325 Mg Tab) 1 tab PO Q6H PRN PRN Reason: Pain, moderate (4-7) Stop: 01/09/17 13:07 Pantoprazole Sodium (Protonix Ec Tab) 40 mg PO 0600 [facility] Last Admin: 01/06/17 06:18 Dose: 40 mg Polyethylene Glycol (Miralax) 17 gm PO DAILY PRN PRN Reason: Constipation Last Admin: 01/06/17 09:15 Dose: 17 gm - Labs Labs: 01/06/17 06:00 01/06/17 06:00 PT 11.4 Seconds (9.9-11.8) 01/04/17 17:20 INR 1.06 (0.93-1.08) 01/04/17 17:20 APTT 27.9 Seconds (23.7-30.8) 01/04/17 17:20 - Constitutional Appears: Well, No Acute Distress - Head Exam Head Exam: ATRAUMATIC, NORMAL INSPECTION - Eye Exam Eye Exam: EOMI, Normal appearance Pupil Exam: NORMAL ACCOMODATION - ENT Exam ENT Exam: Mucous Membranes Moist - Neck Exam Neck Exam: Full ROM - Respiratory Exam Respiratory Exam: Clear to Ausculation Bilateral, NORMAL BREATHING PATTERN. absent: Rales, Rhonchi, Wheezes - Cardiovascular Exam Cardiovascular Exam: REGULAR RHYTHM, +S1, +S2 - GI/Abdominal Exam GI & Abdominal Exam: Soft, Normal Bowel Sounds. absent: Guarding, Rigid, Tenderness - Extremities Exam Extremities Exam: Full ROM, Normal Capillary Refill, Normal Inspection. absent : Calf Tenderness - Back Exam Back Exam: NORMAL INSPECTION - Neurological Exam Neurological Exam: Alert, Awake, Oriented x3 - Psychiatric Exam Psychiatric exam: Normal Affect, Normal Mood - Skin Skin Exam: Normal Color, Warm Assessment and Plan - Assessment and Plan (Free Text) Assessment: 36 y/o male with PMHx Lumbar disc degeneration, psoriasis and history of renal stones presents to the Ed with 2 days worth of back pain along with nausea and vomiting. He's found to have acute renal failure on his lab work and will be admitted and treated to further evaluate the cause. Plan: 1) Acute Interstitial Nephritis 2/2 chronic NSAID use - BUN/Cr 39/5.1, slightly improving - Continue Solumedrol 500mg x 3 doses - Abdominal US - Kindeys unremarkable - F/U urine spot protein/cr ratio, albumin/cr ratio - F/U Glomerular nephritis work up - F/U urine eosinophils - CT Abdomen/pelvis showed no evidence of urinary calculi or hydronephrosis. - Nephrology consulted and on the case - Avoid NSAIDS/nephrotoxic agents - Pain control: percocet prn 2) Hypertension -Continue Amlodipine 5 mg PO -Hydralazine 25mg prn 3) Constipation - Will add colace BID and miralax 4) GI/DVT prophylaxis - Protonix 40mg daily - SCDs <Angelina Gillis MD - Last Filed: 01/06/17 14:54> Objective - Vital Signs/Intake and Output Vital Signs (last 24 hours): Temp Pulse Resp BP Pulse Ox 97.7 F 80 18 141/105 H 94 L 01/06/17 07:57 01/06/17 09:20 01/06/17 07:57 01/06/17 09:20 01/06/17 07:57 Intake and Output: 01/06/17 01/06/17 06:59 18:59 Intake Total 720 1380 Output Total 2300 1100 Balance -1580 280 - Medications Medications: Current Medications Amlodipine Besylate (Norvasc) 5 mg PO DAILY [facility] Last Admin: 01/06/17 09:20 Dose: 5 mg Docusate Sodium (Colace) 100 mg PO BID [facility] Last Admin: 01/06/17 09:15 Dose: 100 mg Hydralazine HCl (Apresoline) 25 mg PO Q4 PRN PRN Reason: Other Last Admin: 01/06/17 07:25 Dose: 25 mg Methylprednisolone 500 mg/ (Sodium Chloride) 100 mls @ 200 mls/hr IVPB DAILY [facility] Stop: 01/07/17 10:01 Last Admin: 01/06/17 09:17 Dose: 200 mls/hr Ondansetron HCl (Zofran Inj) 4 mg IVP Q6 PRN PRN Reason: Nausea/Vomiting Last Admin: 01/06/17 06:18 Dose: 4 mg Oxycodone/Acetaminophen (Percocet 5/325 Mg Tab) 1 tab PO Q6H PRN PRN Reason: Pain, moderate (4-7) Stop: 01/09/17 13:07 Pantoprazole Sodium (Protonix Ec Tab) 40 mg PO 0600 [facility] Last Admin: 01/06/17 06:18 Dose: 40 mg Polyethylene Glycol (Miralax) 17 gm PO DAILY PRN PRN Reason: Constipation Last Admin: 01/06/17 09:15 Dose: 17 gm - Labs Labs: 01/06/17 06:00 01/06/17 06:00 PT 11.4 Seconds (9.9-11.8) 01/04/17 17:20 INR 1.06 (0.93-1.08) 01/04/17 17:20 APTT 27.9 Seconds (23.7-30.8) 01/04/17 17:20 Attending/Attestation - Attestation I have personally seen and examined this patient.: Yes I have fully participated in the care of the patient.: Yes I have reviewed all pertinent clinical information, including history, physical exam and plan: Yes Notes (Text): 01/06/17 14:52 Patient was seen and examined with medical laboratory technician. Agreed with resident assessment and plan. 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 Avoid hypotension and Nephrotoxic medications. Management plan was discussed in detail with patient Education was provided.
--- NOTE | 2017-01-06 16:38 | CP.PCM.PN ---
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 Hypertension control with meds as ordered. Patient not on ACEI/ARB due to BENJIE. continue with norvasc 5 mg/day Monitor Input/Output, daily weights and renal function with basic metabolic panel started solumedrol 500 mg/day x 3 dose may consider kidney biopsy but hx and urine exam consistent with AIN d/c IVF. if continue to improve then may consider d/c tomorrow after 3rd dose of IV solumedrol, on PO prednisone 40 mg/day for 2-3 weeks with close outpt renal f/up. Check urine spot protein/creatinine and albumin/creatinine ratio Check GN work up as C3, C4, LINNEA, Anti dsDNA, ANCA (MPO and [place]-3), HIV/Hep B and Hep C serology Dose meds/antibiotics for reduced GFR. <10 Avoid fleets enema/magnesium based laxatives. Avoid nephrotoxins/NSAIDs/ iodinated contrast (unless needed emergently) Glycemic control Further work up/management as per primary team Thanks for allowing me to participate in care of your patient. Will follow patient with you. Please call if any Qs. d/w team Dr Elliott Carmichael Office: [phone] Chief Complaint; back pain better HPI: Pt is a 36 y/o M without any known significant past medical hx except chronic back pain and has been taking ibuprofen for last years came to ER c/o [facility] back and lower abdomen pain also had nausea and decreased oral intake for last 2 days. found to have cr 6 hence renal consulted he denies hx of DM, HTN, CKD Denies chest pain, palpitation, shortness of breath, leg swelling Denies blood or bubbles in urine Denies OTC/herbal meds but takes NSAIDs chronically No recent iodinated contrast exposure. No obvious episodes of low BP. ROS: Constitutional Symptoms: Denies fever. No chills. No Recent Weight Changes Eyes: denies change in vision, denies watery eyes, denies double vision Ears/Nose/Mouth/Throat: Denies Abnormal Taste. No Bad breath no Bad Taste. Cardiovascular: No chest pain. There is no shortness of breath. No palpitations. Pulmonary: No shortness of breath no cough. Gastrointestinal: improved lower abdominal pain no nausea. No vomiting. Denies change in bowel habits. Denies Bleeding Genitourinary: No Change in force of strain when urinating. No increase in urinary frequency. No pain while urinating. Denies blood in urine. Neurological: Denies headaches. No dizziness. Denies loss of balance. Denies weakness, denies tingling/numbness Dermatological: No Rash or Bruising or ulcers. Psychiatric: Denies Anxiety. No depression. Denies hallucinations. Rheumatological: c/o lower back joint pain. Denies Joint swelling Endocrine: Denies tiredness/Fatigue denies Heat/Cold Intolerance. All other negative\ Physical Examination: General Appearance: Comfortable, in no acute respiratory distress, co-operative . Obese Vitals reviewed and noted as below Head; Atraumatic, normocephalic ENT: no ulcers no thrush. Tongue is midline. Oropharynx: no rash or ulcers. EYES: Pupils are equal, round and reactive to light accommodation. Eye muscles and extraocular movement intact. Sclera is anicteric. Neck; supple no lymphadenopathy, no thyromegaly or bruit Lungs: Normal respiratory rate/effort. Breath sounds bilateral equal and clear Heart: Normal rate. s1s2 normal. No rub or gallop. Extremities: no edema. No varicose veins Neurological: Patient is alert, awake and oriented to person, place and time. No focal deficit. Strength bilateral appropriate and equal Skin: Warm and dry. Normal turgor. No rash. Palpitation: Normal elasticity for age Abdomen: Abdomen is soft. Bowel sounds +. There is no abdominal tenderness, no guarding/rigidity no organomegaly Psych: normal insight and normal affect/mood MSK: no joint tenderness or swelling. Digits and nails normal, no deformity : kidney or bladder not palpable Labs/imaging/EKG reviewed. Past medical history, past surgical history, family history, social history, allergy reviewed and noted as below Family hx: no hx of CKD. Rest non-contributory Work up: Imaging unremarkable for kidneys UA done by showed trace blood an trace protein with LE + numerous WBCs with WBCs casts were seen. Objective - Vital Signs/Intake and Output Vital Signs (last 24 hours): Temp Pulse Resp BP Pulse Ox 97.7 F 80 18 141/105 H 94 L 01/06/17 07:57 01/06/17 09:20 01/06/17 07:57 01/06/17 09:20 01/06/17 07:57 Intake and Output: 01/06/17 01/06/17 06:59 18:59 Intake Total 720 1380 Output Total 2300 1100 Balance -1580 280 - Medications Medications: Current Medications Amlodipine Besylate (Norvasc) 5 mg PO DAILY [facility] Last Admin: 01/06/17 09:20 Dose: 5 mg Docusate Sodium (Colace) 100 mg PO BID [facility] Last Admin: 01/06/17 09:15 Dose: 100 mg Hydralazine HCl (Apresoline) 25 mg PO Q4 PRN PRN Reason: Other Last Admin: 01/06/17 07:25 Dose: 25 mg Methylprednisolone 500 mg/ (Sodium Chloride) 100 mls @ 200 mls/hr IVPB DAILY [facility] Stop: 01/07/17 10:01 Last Admin: 01/06/17 09:17 Dose: 200 mls/hr Ondansetron HCl (Zofran Inj) 4 mg IVP Q6 PRN PRN Reason: Nausea/Vomiting Last Admin: 01/06/17 06:18 Dose: 4 mg Oxycodone/Acetaminophen (Percocet 5/325 Mg Tab) 1 tab PO Q6H PRN PRN Reason: Pain, moderate (4-7) Stop: 01/09/17 13:07 Pantoprazole Sodium (Protonix Ec Tab) 40 mg PO 0600 [facility] Last Admin: 01/06/17 06:18 Dose: 40 mg Polyethylene Glycol (Miralax) 17 gm PO DAILY PRN PRN Reason: Constipation Last Admin: 01/06/17 09:15 Dose: 17 gm - Labs Labs: 01/06/17 06:00 01/06/17 06:00 PT 11.4 Seconds (9.9-11.8) 01/04/17 17:20 INR 1.06 (0.93-1.08) 01/04/17 17:20 APTT 27.9 Seconds (23.7-30.8) 01/04/17 17:20
[2017-01-07] MEDS: POLYETHYLENE GLYCOL 3350 17 GM/Dose PACKET PO PRN (03:55)
[2017-01-07] MEDS: Pantoprazole 40 mg EC Tab PO SCH (06:18)
[2017-01-07 07:00] LABS: ALB/GLOB RATIO 1.2 (1.1-1.8); ALBUMIN 4.4 g/dL (3.0-4.8); CALCIUM 9.6 mg/dL (8.4-10.5)
[2017-01-07 07:09] LABS: GRAN # 6.83 (1.4-6.5); HEMOGLOBIN 14.8 g/dL (14.0-18.0); LYMPH # 0.8 (1.2-3.4); LYMPH % 10.6 % (22.0-35.0); MEAN CELL VOLUME 81.4 fl (80.0-105.0); MEAN CORPUSCULAR HEMOGLOBIN 29.9 pg (25.0-35.0); MEAN CORPUSCULAR HGB CONC 36.7 g/dl (31.0-37.0); MEAN PLATELET VOLUME 10.2 fl (7.0-11.0); MONO # 0.3 (0.1-0.6); MONO % 3.4 % (1.0-6.0); PLATELET COUNT 183 10^3/uL (120.0-450.0); RBC 4.95 10^6/uL (3.5-6.1); RED CELL DISTRIBUTION WIDTH 12.2 % (11.5-14.5); WHITE BLOOD COUNT 7.9 10^3/ul (4.5-11.0)
[2017-01-07 07:49] LABS: URINE BILIRUBIN NEGATIVE (NEGATIVE); URINE BLOOD NEGATIVE (NEGATIVE); URINE GLUCOSE (UA) 250 mg/dL (NEGATIVE); URINE LEUKOCYTE ESTERASE NEGATIVE Leu/uL (NEGATIVE); URINE NITRATE NEGATIVE (NEGATIVE); URINE PROTEIN NEGATIVE mg/dL (<30 mg/dL); URINE UROBILINOGEN 0.2 E.U./dL (<1 E.U./dL)
[2017-01-07 07:50] LABS: URINE APPEARANCE CLEAR (CLEAR); URINE COLOR LIGHT YELLOW (YELLOW)
[2017-01-07 08:29] VITALS: BP 157/90; PULSE 62; TEMP 92.5; O2SAT 96
[2017-01-07 08:35] LABS: HEPATITIS B SURFACE AG NEGATIVE (NEGATIVE)
[2017-01-07 08:50] LABS: HEPATITIS C ANTIBODY NEGATIVE (NEGATIVE)
[2017-01-07 09:45] LABS: HEPATITIS B CORE AB NEGATIVE (NEGATIVE)
[2017-01-07] MEDS: methylPREDNISolone 500 MG in Sodium Chloride 0.9% 100 ML IVPB SCH (10:28)
--- NOTE | 2017-01-07 14:39 | CP.PCM.PN ---
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 Hypertension control with meds as ordered. Patient not on ACEI/ARB due to BENJIE. continue with norvasc 5 mg/day Monitor Input/Output, daily weights and renal function with basic metabolic panel s/p solumedrol 500 mg/day x 3 dose and will start on PO prednisone 40 mg/day from tomorrow. considering the severity of BENJIE, short treatment with steroids is indicated Deder kidney biopsy as hx and urine exam consistent with AIN from renal perspective, stable for d/c today on PO prednisone 40 mg/day for 2 weeks with close outpt renal f/up ( 1 week). As outpatient, will consider to stop steroid early if renal recovery quick. Check urine spot protein/creatinine and albumin/creatinine ratio Check GN work up as C3, C4: normal, LINNEA, Anti dsDNA, ANCA (MPO and MO-3): pending, NEG: HIV/Hep B and Hep C serology Dose meds/antibiotics for reduced GFR. <10 Avoid fleets enema/magnesium based laxatives. Avoid nephrotoxins/NSAIDs/ iodinated contrast (unless needed emergently) Glycemic control Further work up/management as per primary team Thanks for allowing me to participate in care of your patient. Will follow patient with you. Please call if any Qs. d/w team Dr Elliott Carmichael Office: [phone] Chief Complaint; back pain better HPI: Pt is a 36 y/o M without any known significant past medical hx except chronic back pain and has been taking ibuprofen for last years came to ER c/o [facility] back and lower abdomen pain also had nausea and decreased oral intake for last 2 days. found to have cr 6 hence renal consulted he denies hx of DM, HTN, CKD Denies chest pain, palpitation, shortness of breath, leg swelling Denies blood or bubbles in urine Denies OTC/herbal meds but takes NSAIDs chronically No recent iodinated contrast exposure. No obvious episodes of low BP. ROS: Constitutional Symptoms: Denies fever. No chills. No Recent Weight Changes Eyes: denies change in vision, denies watery eyes, denies double vision Ears/Nose/Mouth/Throat: Denies Abnormal Taste. No Bad breath no Bad Taste. Cardiovascular: No chest pain. There is no shortness of breath. No palpitations. Pulmonary: No shortness of breath no cough. Gastrointestinal: improved lower abdominal pain no nausea. No vomiting. Denies change in bowel habits. Denies Bleeding Genitourinary: No Change in force of strain when urinating. No increase in urinary frequency. No pain while urinating. Denies blood in urine. Neurological: Denies headaches. No dizziness. Denies loss of balance. Denies weakness, denies tingling/numbness Dermatological: No Rash or Bruising or ulcers. Psychiatric: Denies Anxiety. No depression. Denies hallucinations. Rheumatological: c/o lower back joint pain. Denies Joint swelling Endocrine: Denies tiredness/Fatigue denies Heat/Cold Intolerance. All other negative\ Physical Examination: General Appearance: Comfortable, in no acute respiratory distress, co-operative . Obese Vitals reviewed and noted as below Head; Atraumatic, normocephalic ENT: no ulcers no thrush. Tongue is midline. Oropharynx: no rash or ulcers. EYES: Pupils are equal, round and reactive to light accommodation. Eye muscles and extraocular movement intact. Sclera is anicteric. Neck; supple no lymphadenopathy, no thyromegaly or bruit Lungs: Normal respiratory rate/effort. Breath sounds bilateral equal and clear Heart: Normal rate. s1s2 normal. No rub or gallop. Extremities: no edema. No varicose veins Neurological: Patient is alert, awake and oriented to person, place and time. No focal deficit. Strength bilateral appropriate and equal Skin: Warm and dry. Normal turgor. No rash. Palpitation: Normal elasticity for age Abdomen: Abdomen is soft. Bowel sounds +. There is no abdominal tenderness, no guarding/rigidity no organomegaly Psych: normal insight and normal affect/mood MSK: no joint tenderness or swelling. Digits and nails normal, no deformity : kidney or bladder not palpable Labs/imaging/EKG reviewed. Past medical history, past surgical history, family history, social history, allergy reviewed and noted as below Family hx: no hx of CKD. Rest non-contributory Work up: Imaging unremarkable for kidneys UA done by showed trace blood an trace protein with LE + numerous WBCs with WBCs casts were seen. Objective - Vital Signs/Intake and Output Vital Signs (last 24 hours): Temp Pulse Resp BP Pulse Ox 92.5 F L 62 18 157/90 H 96 01/07/17 08:00 01/07/17 09:25 01/07/17 08:00 01/07/17 09:25 01/07/17 08:00 Intake and Output: 01/07/17 01/07/17 06:59 18:59 Intake Total 720 840 Output Total 2340 450 Balance -1620 390 - Medications Medications: Current Medications Amlodipine Besylate (Norvasc) 5 mg PO DAILY COUNT INCLUDES THE [facility] Last Admin: 01/07/17 09:25 Dose: 5 mg Docusate Sodium (Colace) 100 mg PO BID COUNT INCLUDES THE [facility] Last Admin: 01/07/17 09:25 Dose: 100 mg Hydralazine HCl (Apresoline) 25 mg PO Q4 PRN PRN Reason: Other Last Admin: 01/06/17 07:25 Dose: 25 mg Ondansetron HCl (Zofran Inj) 4 mg IVP Q6 PRN PRN Reason: Nausea/Vomiting Last Admin: 01/06/17 06:18 Dose: 4 mg Oxycodone/Acetaminophen (Percocet 5/325 Mg Tab) 1 tab PO Q6H PRN PRN Reason: Pain, moderate (4-7) Stop: 01/09/17 13:07 Last Admin: 01/07/17 09:25 Dose: 1 tab Pantoprazole Sodium (Protonix Ec Tab) 40 mg PO 0600 COUNT INCLUDES THE [facility] Last Admin: 01/07/17 06:18 Dose: 40 mg Polyethylene Glycol (Miralax) 17 gm PO DAILY PRN PRN Reason: Constipation Last Admin: 01/07/17 03:55 Dose: 17 gm Prednisone (Prednisone Tab) 40 mg PO DAILY COUNT INCLUDES THE [facility] - Labs Labs: 01/07/17 06:30 01/07/17 06:30 PT 11.4 Seconds (9.9-11.8) 01/04/17 17:20 INR 1.06 (0.93-1.08) 01/04/17 17:20 APTT 27.9 Seconds (23.7-30.8) 01/04/17 17:20
== END 2017-01-07 15:27 | disposition home or self-care (01) | DRG 684 ==
LOC: ED 16:51 → ERH 19:25 → 2RNO 21:50 → 3RNO 01-05 12:20
PROVIDERS: ADMIT Hospitalist; ATTEND Internal Medicine
DX: N17.9 Acute kidney failure, unspecified (principal); K76.0 Fatty (change of) liver, not elsewhere classified; N12 Tubulo-interstitial nephritis, not specified as acute or chronic; E66.9 Obesity, unspecified; R03.0 Elevated blood-pressure reading, without diagnosis of hypertension; T39.395A Adverse effect of other nonsteroidal anti-inflammatory drugs [NSAID], initial encounter; M54.9 Dorsalgia, unspecified; G89.29 Other chronic pain; K59.00 Constipation, unspecified; M51.36 Other intervertebral disc degeneration, lumbar region; N50.811 Right testicular pain; Z79.1 Long term (current) use of non-steroidal anti-inflammatories (NSAID); Z87.442 Personal history of urinary calculi; Z87.891 Personal history of nicotine dependence; L40.9 Psoriasis, unspecified; M54.30 Sciatica, unspecified side; Z86.14 Personal history of Methicillin resistant Staphylococcus aureus infection; Z91.09 Other allergy status, other than to drugs and biological substances; R00.0 Tachycardia, unspecified; Z68.37 Body mass index [BMI] 37.0-37.9, adult

== ENCOUNTER 2017-01-12 05:43 | Emergency (ER) | payer MEDICAID, OTHER ==
[2017-01-12 05:50] VITALS: BMI 37.7
[2017-01-12] MEDS ORDERED: Sodium Chloride 0.9% 1,000 ML IV STA (05:51)
--- NOTE | 2017-01-12 06:15 | ED PDOC ---
Arrival/HPI - General Chief Complaint: Back Pain Time Seen by Provider: 01/12/17 05:47 - History of Present Illness Narrative History of Present Illness (Text): 01/12/17 06:06 36yo male with 1 day duration worsening b/l back pain radiating to his abdomen. Pt states pain is constant, feels like pressure, with no relieving or exacerbating factors. States he has no nausea or vomiting. States he was recently dc'd with a diagnosis of acute kidney injury, and this feels similar to previous symptoms. Denies cp/sob/huff. No other complaints. Past Medical History - Provider Review Nursing Documentation Reviewed: Yes - Past History Past History: Non-Contributing - Infectious Disease Hx of Infectious Diseases: None, MRSA - Tetanus Immunization Tetanus Immunization: >10 years Ago - Past Medical History Past Medical History: Non-Contributing - Cardiac Hx Cardiac Disorders: No - Pulmonary Hx Respiratory Disorders: No - Neurological Hx Neurological Disorder: No - HEENT Hx HEENT Disorder: Yes (eyeglasses) - Renal Hx Renal Disorder: No - Endocrine/Metabolic Hx Endocrine Disorders: No - Hematological/Oncological Hx Blood Disorders: No - Integumentary Hx Dermatological Disorder: Yes (Psoriasis (Left Forearm and Scrotum)) Hx Psoriasis: Yes Other/Comment: psoriasis scalp, face, arms legs abd eyebrows testicles chest multiple dry patches of skin, pt suffered 2nd and 3rd degree nam to right hand 2 or 3 yrs ago while cooking, 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 - Musculoskeletal/Rheumatological Hx Falls: No - Gastrointestinal Hx Gastrointestinal Disorders: Yes (obesse) - Genitourinary/Gynecological Hx Genitourinary Disorders: No - Psychiatric Hx Substance Use: No - Past Surgical History Past Surgical History: Non-Contributing - Surgical History Other/Comment: 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 - Anesthesia Hx Anesthesia: No - Suicidal Assessment Feels Threatened In Home Enviroment: No Family/Social History Family/Social History: Unknown Family HX Smoking Status: Former Smoker Hx Alcohol Use: (5 or 6 drinks a year) Hx Substance Use: No Hx Substance Use Treatment: No Allergies/Home Meds Allergies/Adverse Reactions: Allergies sun Allergy (Uncoded 01/09/17 22:53) SWELLING Home Medications: Home Meds Medication Instructions Recorded Confirmed Acetaminophen [Acetaminophen Extra 500 mg PO Q6H PRN 01/12/17 01/12/17 Strength] Ranitidine HCl [Zantac] 150 mg PO DAILY 01/12/17 01/12/17 Physical Exam - Physical Exam Narrative Physical Exam (Text): 01/12/17 06:15 - Review of Systems Constitutional: Normal. absent: Fatigue, Weight Change, Fevers Eyes: Normal ENT: denies sore throat, denies tristhmus Respiratory: Normal. absent: SOB, Cough, Sputum Cardiovascular: absent: Chest Pain, Palpitations, Syncope Gastrointestinal: Abdominal pain. absent: Diarrhea, Nausea, Vomiting Genitourinary: Normal. absent: Dysuria, Frequency, Hematuria Musculoskeletal: back pain. absent: Arthralgias, Neck Pain Skin: no rashes, no erythema Neurological: absent: Focal Weakness Endocrine: Normal Hemo/Lymphatic: Normal Psychiatric: No suicidal or homicidal ideations Physical exam Patient appears age appropriate in moderate painful distress, speaking full sentences without difficulty - Systems Exam Head: Present: Atraumatic, Normocephalic Pupils: Present: PERRL Extroacular Muscles: Present: EOMI Conjunctiva: Present: Normal Mouth: Present: Moist Mucous Membranes Neck: Present: Normal Range of Motion. No: MIDLINE TENDERNESS, Paraspinal Tenderness Respiratory/Chest: Present: Clear to Auscultation, Good Air Exchange. No: Respiratory Distress, Accessory Muscle Use, Tachypneic Cardiovascular: Present: Regular Rate and Rhythm, Normal S1, S2, Peripheal Pulses Present. No: Murmurs Abdomen: Present: Normal Bowel Sounds. No: Tenderness, Distention, Peritoneal Signs, Rebound, Guarding Back: Present: Normal Inspection. No: Midline Tenderness, Paraspinal Tenderness Upper Extremity: Present: Normal Inspection. No: Cyanosis, Edema Lower Extremity: Present: Normal Inspection. No: Edema Neurological: Present: GCS=15, Speech Normal, cranial nerves II through XII fully intact with no cerebellar abnormality, neurosensory fully intact. No focal neurological deficits. Skin: Present: Warm, Dry, Normal Color. No: Rashes Lymphatic: Present: OX3, NI, NC Psychiatric: Present: Alert, Oriented x 3, Normal Insight, Normal Concentration Vital Signs Temp Pulse Resp BP Pulse Ox 01/12/17 11:29 98.2 F 88 16 142/93 H 95 01/12/17 10:13 88 18 146/93 H 96 01/12/17 08:58 91 H 18 139/103 H 95 01/12/17 06:10 97.7 F 87 18 141/98 H 99 Medical Decision Making ED Course and Treatment: Pt with abd and back pain, no acute findings on physical exam previous records reviewed, pt was dc'd this week with diagnosis of BENJIE meds and fluids ordered labs pending 01/12/17 07:[address] Mcneil in stable condition, pending CT, reeval, dispo currently states his pain is much better - Lab Interpretations Microbiology Results: Microbiology Results 01/12/17 06:15 Urine Urine Culture - Final No Growth (<1,000 CFU/ML) Lab Results: 01/12/17 06:15 01/12/17 06:15 Lab Results 01/12/17 06:15: Urine Color Yellow, Urine Appearance Sl cloudy, Urine pH 6.0, Ur Specific [place] 1.020, Urine Protein 30 H, Urine Glucose (UA) 250 H, Urine Ketones Negative, Urine Blood Moderate H, Urine Nitrate Negative, Urine Bilirubin Negative, Urine Urobilinogen 0.2, Ur Leukocyte Esterase Negative, Urine RBC 5 - 10, Urine WBC 1 - 3, Ur Epithelial Cells 4 - 5, Urine Bacteria Large 01/12/17 06:15: PT 11.4, INR 1.06, APTT 27.1 01/12/17 06:15: WBC 11.7 H D, RBC 5.82, Hgb 17.0 D, Hct 45.7, MCV 78.5 L, MCH 29.2, MCHC 37.2 H, RDW 12.3, Plt Count 247, MPV 10.5, Gran % 60.7, Lymph % (Auto ) 26.1, [place] % (Auto) 10.9 H, Eos % (Auto) 2.1, Baso % (Auto) 0.2, Gran # 7.11 H , Lymph # 3.1, [place] # 1.3 H, Eos # 0.2, Baso # 0.02 01/12/17 06:15: Sodium 142, Potassium 4.0, Chloride 106, Carbon Dioxide 17 L, Anion Gap 23 H, BUN 30 H, Creatinine 1.9 H, Est GFR ( Amer) 49, Est GFR ( Non-Af Amer) 41, Random Glucose 272 H, Calcium 9.4, Total Bilirubin 0.9, AST 34 , ALT 92 H, Alkaline Phosphatase 116, Total Protein 8.0, Albumin 4.5, Globulin 3.4, Albumin/Globulin Ratio 1.3 - RAD Interpretation Radiology Orders: 01/12/17 05:52 CHEST PORTABLE [RAD] Stat 01/12/17 05:54 ABD & PELVIS W/O PO OR IV CONT [CT] Stat - Medication Orders Current Medication Orders: Discontinued Medications Cyclobenzaprine HCl (Flexeril) 10 mg PO STAT STA Stop: 01/12/17 08:38 Last Admin: 01/12/17 08:45 Dose: 10 mg Hydromorphone HCl (Dilaudid) 1 mg IVP STAT STA Stop: 01/12/17 09:36 Last Admin: 01/12/17 09:48 Dose: 1 mg Sodium Chloride (Sodium Chloride 0.9%) 1,000 mls @ 1,000 mls/hr IV .Q1H STA Stop: 01/12/17 06:50 Last Admin: 01/12/17 06:40 Dose: 1,000 mls/hr Morphine Sulfate (Morphine) 6 mg IVP STAT STA Stop: 01/12/17 05:52 Last Admin: 01/12/17 06:02 Dose: 6 mg Morphine Sulfate (Morphine) 6 mg IVP STAT STA Stop: 01/12/17 08:38 Last Admin: 01/12/17 08:45 Dose: 6 mg Disposition/Present on Arrival - Present on Arrival Any Indicators Present on Arrival: No History of DVT/PE: No History of Uncontrolled Diabetes: No Urinary Catheter: No History Surgical Site Infection Following: None - Disposition Have Diagnosis and Disposition been Completed?: Yes Diagnosis: Back pain Disposition: HOME/ ROUTINE Disposition Time: 14:46 Condition: IMPROVED Discharge Instructions (ExitCare): Chronic Back Pain (ED) Additional Instructions: Mr Deleon, thank you for letting us take care of you today. Your provider was Dr. Mcneil. You were treated for Back Pain. The emergency medical care you received today was directed at your acute symptoms. If you were prescribed any medication, please fill it and take as directed. It may take several days for your symptoms to resolve. Return to the Emergency Department if your symptoms worsen, do not improve, or if you have any other problems. Please contact your doctor or call one of the physicians/clinics you have been referred to that are listed on the Patient Visit Information form that is included in your discharge packet. Bring any paperwork you were given at discharge with you along with any medications you are taking to your follow up visit. Our treatment cannot replace ongoing medical care by a primary care provider (PCP) outside of the emergency department. Thank you for allowing the [employer] team to be part of your care today. If you had an X-Ray or CT scan: A Radiologist will review the ED reading if any change in treatment is needed we will contact you. If you had a blood, urine, or wound culture: It will take several days for the results, if any change in treatment is needed we will contact you. If you had an STI test: It will take 48 hours for the results. Please call after 1 week if you have not heard back. Prescriptions: Acetaminophen with Codeine [Tylenol with Codeine #3 Tablet] 1 each PO Q6 #20 tablet Cyclobenzaprine [Cyclobenzaprine HCl] 10 mg PO Q8 PRN #20 tab PRN Reason: Pain, Mild (1-3) Referrals: [facility] [place] - Follow up with primary Forms: [employer] (Russian)
[2017-01-12 06:43] LABS: ALB/GLOB RATIO 1.3 (1.1-1.8); BILIRUBIN,TOTAL 0.9 mg/dL (0.2-1.3); CALCIUM 9.4 mg/dL (8.4-10.5)
[2017-01-12 06:45] LABS: URINE BILIRUBIN NEGATIVE (NEGATIVE); URINE BLOOD MODERATE (NEGATIVE); URINE GLUCOSE (UA) 250 mg/dL (NEGATIVE); URINE KETONE NEGATIVE (NEGATIVE); URINE LEUKOCYTE ESTERASE NEGATIVE Leu/uL (NEGATIVE); URINE PROTEIN 30 mg/dL (<30 mg/dL); URINE UROBILINOGEN 0.2 E.U./dL (<1 E.U./dL)
[2017-01-12 06:49] LABS: URINE APPEARANCE SL CLOUDY (CLEAR); URINE COLOR YELLOW (YELLOW)
[2017-01-12 06:50] LABS: HEMATOCRIT 45.7 % (42.0-52.0); MEAN CELL VOLUME 78.5 fl (80.0-105.0); MEAN CORPUSCULAR HEMOGLOBIN 29.2 pg (25.0-35.0); WHITE BLOOD COUNT 11.7 10^3/ul (4.5-11.0)
[2017-01-12 06:51] LABS: GRAN % 60.7 % (50.0-68.0); LYMPH % 26.1 % (22.0-35.0); MEAN CORPUSCULAR HGB CONC 37.2 g/dl (31.0-37.0); MEAN PLATELET VOLUME 10.5 fl (7.0-11.0); MONO % 10.9 % (1.0-6.0); RED CELL DISTRIBUTION WIDTH 12.3 % (11.5-14.5)
[2017-01-12 06:52] LABS: BASO % 0.2 % (0.0-3.0); EOS # 0.2 (0.0-0.7); EOS % 2.1 % (1.5-5.0); GRAN # 7.11 (1.4-6.5); INR 1.06 (0.93-1.08); LYMPH # 3.1 (1.2-3.4); MONO # 1.3 (0.1-0.6); PARTIAL THROMBOPLASTIN TIME 27.1 Seconds (23.7-30.8)
[2017-01-12 06:53] LABS: BASO # 0.02 K/mm3 (0.0-2.0)
[2017-01-12 07:02] LABS: URINE BACTERIA LARGE (NEG)
--- NOTE | 2017-01-12 07:14 | ED PDOC ---
Physical Exam Vital Signs Reviewed: Yes Vital Signs Temp Pulse Resp BP Pulse Ox 01/12/17 06:10 97.7 F 87 18 141/98 H 99 Temperature: Afebrile Blood Pressure: Hypertensive Pulse: Regular Respiratory Rate: Normal Medical Decision Making ED Course and Treatment: 01/12/17 07:13 Patient endorsed to me by Dr. Lema at 07:00, pending CT, re-evaluation and disposition. Patient presented with back pain radiating to abdomen. Report Date: 01/12/17 08:21 EXAM: CT Abdomen and Pelvis Without Intravenous Contrast Dictated and Authenticated by: Alberto Mcdonnell MD IMPRESSION: 1. No urinary tract calculus or obstruction. 2. Normal appendix. 3. No bowel obstruction or diverticulitis. 01/12/17 08:31 On re-evaluation, patient continues to complain of back pain radiating to his abdomen. No abdominal or CVA tenderness on exam. Patient reports he has a history of herniated discs. Pain medication ordered. 01/12/17 09:45 Patient continues to complain of pain. Dilaudid IV ordered. 01/12/17 11:29 Patient feels much better. He is able to walk with no ataxia. No numbness or weakness. No incontinence. Abdomen is soft and not tender. Will have patient follow with already scheduled PMD appointment. Advised to return to the ED if you have worsening pain or symptoms, trouble urinating or any other concern. - Lab Interpretations Lab Results: 01/12/17 06:15 01/12/17 06:15 Lab Results 01/12/17 06:15: Urine Color Yellow, Urine Appearance Sl cloudy, Urine pH 6.0, Ur Specific [place] 1.020, Urine Protein 30 H, Urine Glucose (UA) 250 H, Urine Ketones Negative, Urine Blood Moderate H, Urine Nitrate Negative, Urine Bilirubin Negative, Urine Urobilinogen 0.2, Ur Leukocyte Esterase Negative, Urine RBC 5 - 10, Urine WBC 1 - 3, Ur Epithelial Cells 4 - 5, Urine Bacteria Large 01/12/17 06:15: PT 11.4, INR 1.06, APTT 27.1 01/12/17 06:15: WBC 11.7 H D, RBC 5.82, Hgb 17.0 D, Hct 45.7, MCV 78.5 L, MCH 29.2, MCHC 37.2 H, RDW 12.3, Plt Count 247, MPV 10.5, Gran % 60.7, Lymph % (Auto ) 26.1, [place] % (Auto) 10.9 H, Eos % (Auto) 2.1, Baso % (Auto) 0.2, Gran # 7.11 H , Lymph # 3.1, [place] # 1.3 H, Eos # 0.2, Baso # 0.02 01/12/17 06:15: Sodium 142, Potassium 4.0, Chloride 106, Carbon Dioxide 17 L, Anion Gap 23 H, BUN 30 H, Creatinine 1.9 H, Est GFR ( Amer) 49, Est GFR ( Non-Af Amer) 41, Random Glucose 272 H, Calcium 9.4, Total Bilirubin 0.9, AST 34 , ALT 92 H, Alkaline Phosphatase 116, Total Protein 8.0, Albumin 4.5, Globulin 3.4, Albumin/Globulin Ratio 1.3 - RAD Interpretation Radiology Orders: 01/12/17 05:52 CHEST PORTABLE [RAD] Stat 01/12/17 05:54 ABD & PELVIS W/O PO OR IV CONT [CT] Stat - Medication Orders Current Medication Orders: Discontinued Medications Cyclobenzaprine HCl (Flexeril) 10 mg PO STAT STA Stop: 01/12/17 08:38 Last Admin: 01/12/17 08:45 Dose: 10 mg Sodium Chloride (Sodium Chloride 0.9%) 1,000 mls @ 1,000 mls/hr IV .Q1H STA Stop: 01/12/17 06:50 Last Admin: 01/12/17 06:40 Dose: 1,000 mls/hr Morphine Sulfate (Morphine) 6 mg IVP STAT STA Stop: 01/12/17 05:52 Last Admin: 01/12/17 06:02 Dose: 6 mg Morphine Sulfate (Morphine) 6 mg IVP STAT STA Stop: 01/12/17 08:38 Last Admin: 01/12/17 08:45 Dose: 6 mg - Scribe Statement The provider has reviewed the documentation as recorded by the Judy Llamas Provider Scribe Attestation: All medical record entries made by the Scribe were at my direction and personally dictated by me. I have reviewed the chart and agree that the record accurately reflects my personal performance of the history, physical exam, medical decision making, and the department course for this patient. I have also personally directed, reviewed, and agree with the discharge instructions and disposition. Disposition/Present on Arrival - Present on Arrival Any Indicators Present on Arrival: No History of DVT/PE: No History of Uncontrolled Diabetes: No Urinary Catheter: No History of Decub. Ulcer: No History Surgical Site Infection Following: None - Disposition Have Diagnosis and Disposition been Completed?: Yes Diagnosis: Back pain Disposition: HOME/ ROUTINE Disposition Time: 11:29 Patient Plan: Discharge Condition: IMPROVED Discharge Instructions (ExitCare): Chronic Back Pain (ED) Additional Instructions: Mr Deleon, thank you for letting us take care of you today. Your provider was Dr. Mcneil. You were treated for Back Pain. The emergency medical care you received today was directed at your acute symptoms. If you were prescribed any medication, please fill it and take as directed. It may take several days for your symptoms to resolve. Return to the Emergency Department if your symptoms worsen, do not improve, or if you have any other problems. Please contact your doctor or call one of the physicians/clinics you have been referred to that are listed on the Patient Visit Information form that is included in your discharge packet. Bring any paperwork you were given at discharge with you along with any medications you are taking to your follow up visit. Our treatment cannot replace ongoing medical care by a primary care provider (PCP) outside of the emergency department. Thank you for allowing the [employer] team to be part of your care today. If you had an X-Ray or CT scan: A Radiologist will review the ED reading if any change in treatment is needed we will contact you. If you had a blood, urine, or wound culture: It will take several days for the results, if any change in treatment is needed we will contact you. If you had an STI test: It will take 48 hours for the results. Please call after 1 week if you have not heard back. Prescriptions: Acetaminophen with Codeine [Tylenol with Codeine #3 Tablet] 1 each PO Q6 #20 tablet Cyclobenzaprine [Cyclobenzaprine HCl] 10 mg PO Q8 PRN #20 tab PRN Reason: Pain, Mild (1-3) Referrals: [facility] at [facility] [place]Outside] - Follow up with primary Forms: [employer] ([place])
[2017-01-12] MEDS ORDERED: HYDROmorphone 1 mg/ml ISec IVP STA (09:35)
--- NOTE | 2017-01-12 09:36 | CT ---
PROCEDURE: CT Abdomen and Pelvis without intravenous contrast HISTORY: abd pain COMPARISON: 01/04/2017 TECHNIQUE: Without contrast.. Contrast Dose: 0 Radiation dose: Total exam DLP = 135.51 mGy-cm. This CT exam was performed using one or more of the following dose reduction techniques: Automated exposure control, adjustment of the mA and/or kV according to patient size, and/or use of iterative reconstruction technique. FINDINGS: LOWER THORAX: Unremarkable. LIVER: Normal size and contour. Mild fatty infiltration with diffuse diminished attenuation. No mass. No biliary dilatation. GALLBLADDER AND BILE DUCTS: Unremarkable. PANCREAS: Unremarkable. No gross lesion or ductal dilatation. SPLEEN: Unremarkable. ADRENALS: Unremarkable. No mass. KIDNEYS AND URETERS: Unremarkable. No hydronephrosis. No solid mass. VASCULATURE: Unremarkable. No aortic aneurysm. BOWEL: Sigmoid diverticulosis, without evidence of diverticulitis. No bowel obstruction. No other abnormal bowel loops. APPENDIX: Unremarkable. Normal appendix. PERITONEUM: Unremarkable. No free fluid. No free air. LYMPH NODES: Unremarkable. No enlarged lymph nodes. BLADDER: Unremarkable. REPRODUCTIVE: Unremarkable. Normal prostate BONES: No fracture. Degenerative disc disease at L4-5. OTHER FINDINGS: None. IMPRESSION: No acute abnormality. No change from 01/04/2017.
[2017-01-12 10:14] VITALS: PULSE 88
--- NOTE | 2017-01-12 11:19 | RAD ---
HISTORY: cough COMPARISON: 01/04/2017 FINDINGS: LUNGS: No active pulmonary disease. PLEURA: No significant pleural effusion identified, no pneumothorax apparent. CARDIOVASCULAR: Normal. OSSEOUS STRUCTURES: No significant abnormalities. VISUALIZED UPPER ABDOMEN: Normal. OTHER FINDINGS: None. IMPRESSION: No active disease.
[2017-01-12 11:30] VITALS: BP 142/93; RESP 16; TEMP 98.2; O2SAT 95
== END 2017-01-12 11:30 | disposition home or self-care (01) ==
LOC: ED 05:43
DX: M54.9 Dorsalgia, unspecified (principal)
CPT/HCPCS: 71010; 74176; 80053; 81001; 85025; 85610; 85730; 87086; 96361; 96374; 96375; 96376; 99284; J1170; J2270; J7040

== ENCOUNTER 2017-01-21 19:39 | Inpatient (IN) | payer MEDICAID, OTHER ==
[2017-01-21 19:39] VITALS: BMI 37.7
[2017-01-21] MEDS ORDERED: Sodium Chloride 0.9% 1,000 ML IV STA ×3 (20:06→21:24)
--- NOTE | 2017-01-21 20:15 | ED PDOC ---
Arrival/HPI - General Chief Complaint: Shortness Of Breath Time Seen by Provider: 01/21/17 19:45 Historian: Patient - Critical Care Critical Care Minutes: 45 minutes - History of Present Illness Narrative History of Present Illness (Text): 01/21/17 20:00 Luke Deleon is a 36 year old male whose past medical history includes acute renal failure, presents to the emergency department complaining of shortness of breath and chest discomfort for the past couple of days. Patient also reports having flank pain due to ARF. He also states having irritation around his penis and his throat feeling dry. Patient denies fever, chills, nausea, vomiting, diarrhea, urinary complaints, or other complaints. Time/Duration: < week (couple of days) Symptom Onset: Sudden Symptom Course: Unchanged Associated Symptoms (Text): shortness of breath, chest discomfort, dry throat, irritation around penis, flank pain Past Medical History - Provider Review Nursing Documentation Reviewed: Yes - Past History Past History: Non-Contributing - Infectious Disease Hx of Infectious Diseases: None - Tetanus Immunization Tetanus Immunization: >10 years Ago - Past Medical History Past Medical History: Non-Contributing - Cardiac Hx Cardiac Disorders: No - Pulmonary Hx Respiratory Disorders: No - Neurological Hx Neurological Disorder: No - HEENT Hx HEENT Disorder: Yes (eyeglasses) - Renal Hx Renal Disorder: No - Endocrine/Metabolic Hx Endocrine Disorders: No - Hematological/Oncological Hx Blood Disorders: No - Integumentary Hx Dermatological Disorder: Yes (Psoriasis (Left Forearm and Scrotum)) Hx Psoriasis: Yes Other/Comment: psoriasis scalp, face, arms legs abd eyebrows testicles chest multiple dry patches of skin, pt suffered 2nd and 3rd degree nam to right hand 2 or 3 yrs ago while cooking, 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 - Musculoskeletal/Rheumatological Hx Falls: No - Gastrointestinal Hx Gastrointestinal Disorders: Yes (obesse) - Genitourinary/Gynecological Hx Genitourinary Disorders: No - Psychiatric Hx Psychophysiologic Disorder: No Hx Substance Use: No - Past Surgical History Past Surgical History: Non-Contributing - Surgical History Other/Comment: 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 - Anesthesia Hx Anesthesia: No - Suicidal Assessment Feels Threatened In Home Enviroment: No Family/Social History - Physician Review Nursing Documentation Reviewed: Yes Family/Social History: Unknown Family HX Smoking Status: Former Smoker Hx Alcohol Use: (5 or 6 drinks a year) Hx Substance Use: No Hx Substance Use Treatment: No Allergies/Home Meds Allergies/Adverse Reactions: Allergies sun Allergy (Uncoded 01/09/17 22:53) SWELLING Home Medications: Home Meds Medication Instructions Recorded Confirmed Acetaminophen [Acetaminophen Extra 500 mg PO Q6H PRN 01/12/17 01/21/17 Strength] Ranitidine HCl [Zantac] 150 mg PO DAILY 01/12/17 01/21/17 Review of Systems - Review of Systems Constitutional: absent: Fevers ENT: Other (dry throat) Respiratory: SOB Cardiovascular: Chest Pain (discomfort) Gastrointestinal: absent: Abdominal Pain, Diarrhea, Nausea, Vomiting Genitourinary Male: Other (irritation around penis). absent: Dysuria, Frequency Neurological: absent: Headache Physical Exam Vital Signs Reviewed: Yes Vital Signs Temp Pulse Resp BP Pulse Ox 01/21/17 22:00 99 H 20 152/78 H 99 01/21/17 20:25 125 H 139/98 H 01/21/17 20:00 16 99 01/21/17 19:39 98.2 F 134 H 24 136/99 H 97 Temperature: Afebrile Blood Pressure: Hypertensive Pulse: Tachycardic Respiratory Rate: Normal Appearance: Positive for: Well-Appearing, Non-Toxic, Comfortable Pain Distress: None Mental Status: Positive for: Alert and Oriented X 3 - Systems Exam Head: Present: Atraumatic, Normocephalic Pupils: Present: PERRL Extroacular Muscles: Present: EOMI Conjunctiva: Present: Normal Mouth: Present: Dry Pharnyx: No: ERYTHEMA, EXUDATE, Uvular Deviation Neck: Present: Normal Range of Motion Respiratory/Chest: Present: Clear to Auscultation, Good Air Exchange. No: Respiratory Distress, Accessory Muscle Use Cardiovascular: Present: Normal S1, S2, Tachycardic. No: Murmurs Abdomen: Present: Normal Bowel Sounds. No: Tenderness, Distention, Peritoneal Signs Genitourinary Male: Present: Penile Discharge (scanty white discharge), Erythema (minimal eythema to the urethral meatus) Back: Present: Normal Inspection Upper Extremity: Present: Normal Inspection. No: Cyanosis, Edema Lower Extremity: Present: Normal Inspection. No: Edema Neurological: Present: GCS=15, CN II-XII Intact, Speech Normal Skin: Present: Warm, Dry, Normal Color. No: Rashes Psychiatric: Present: Alert, Oriented x 3, Normal Insight, Normal Concentration Medical Decision Making ED Course and Treatment: 01/21/17 Impression: 36 year old male with shortness of breath, chest discomfort, dry throat, and penis irritation. Plan: -- EKG -- Chest X-ray -- Labs -- Urinalysis -- Lopressor and Sodium Chloride -- Reassess and disposition Progress Notes: EKG: Ordered, reviewed, and independently interpreted the EKG. Rate : 150 BPM Rhythm : sinus tachycardia Interpretation : Non-specific ST/T changes 01/21/17 21:24 Discussed case with Hog Worker Dr. Sotomayor who accepts patient admission to the intensive care unit for DKA. - Lab Interpretations Lab Results: 01/21/17 21:18 01/21/17 20:10 Lab Results 01/21/17 21:18: WBC 16.0 H D, RBC 5.27, Hgb 15.8, MCH 30.0, Plt Count 224 01/21/17 21:13: POC Glucose (mg/dL) > 500 H* 01/21/17 20:20: Urine Color Yellow, Urine Appearance Clear, Urine pH 6.0, Ur Specific [place] Pos 1.010, Urine Protein Negative, Urine Glucose (UA) >=1000, Urine Ketones Negative, Urine Blood Trace-intact H, Urine Nitrate Negative, Urine Bilirubin Negative, Urine Urobilinogen 0.2, Ur Leukocyte Esterase Negative , Urine RBC Negative, Urine WBC Negative 01/21/17 20:10: D-Dimer, Quantitative 0.61 H 01/21/17 20:10: Sodium 127 L, Potassium 5.5 H, Chloride 85 L, Carbon Dioxide 18 L, Anion Gap 30 H, BUN 26 H, Creatinine 1.6 H, Est GFR ( Amer) > 60, Est GFR (Non-Af Amer) 50, Random Glucose 1270 H* D, Calcium 9.8, Total Bilirubin 1.0 , AST 26, ALT 41, Alkaline Phosphatase 255 H, Lactate Dehydrogenase 437, Total Creatine Kinase 21 L, Troponin I < 0.01, NT-Pro-B Natriuret Pep 37.9, Total Protein 7.2, Albumin 4.2, Globulin 3.0, Albumin/Globulin Ratio 1.4 01/21/17 20:10: PT 11.1, INR 1.03, APTT 24.9 - RAD Interpretation Radiology Orders: 01/21/17 19:59 CHEST PORTABLE [RAD] Stat 01/21/17 21:18 LUNG PERF & VENT SCAN [NM] Stat - EKG Interpretation Interpreted by ED Physician: Yes Type: 12 lead EKG - Medication Orders Current Medication Orders: Amlodipine Besylate (Norvasc) 5 mg PO DAILY [facility] Last Admin: 01/22/17 09:11 Dose: 5 mg Al Hydrox/Mg Hydrox/Simethicone 30 ml/Diphenhydramine HCl 75 mg/Lidocaine 30 ml 0 ml PO Q2H PRN PRN Reason: Mouth/Throat Pain Last Admin: 01/22/17 13:33 Dose: 1 ml Cyclobenzaprine HCl (Flexeril) 10 mg PO Q8 PRN PRN Reason: Pain, Mild (1-3) Last Admin: 01/22/17 17:19 Dose: 10 mg Insulin Detemir (Levemir) 20 unit SC HS [facility] Last Admin: 01/22/17 21:57 Dose: 20 unit Insulin Human Regular (Humulin R High) 0 units SC ACHS [facility] PRN Reason: Protocol Last Admin: 01/22/17 21:57 Dose: 4 units Nystatin (Mycostatin Cream) 1 ea TOP TID [facility] Last Admin: 01/22/17 14:00 Dose: Nystatin (Nystatin Oral Susp) 5 ml PO QID [facility] Last Admin: 01/22/17 21:58 Dose: 5 ml Ondansetron HCl (Zofran Inj) 4 mg IVP Q4H PRN PRN Reason: Nausea/Vomiting Last Admin: 01/22/17 02:00 Dose: 4 mg Pantoprazole Sodium (Protonix Inj) 40 mg IVP DAILY [facility] Last Admin: 01/22/17 09:08 Dose: 40 mg Discontinued Medications Sodium Chloride (Sodium Chloride 0.9%) 1,000 mls @ 999 mls/hr IV .Q1H1M STA Stop: 01/21/17 21:06 Last Admin: 01/21/17 20:25 Dose: 999 mls/hr Sodium Chloride (Sodium Chloride 0.9%) 1,000 mls @ 999 mls/hr IV .Q1H1M STA Stop: 01/21/17 22:09 Last Admin: 01/21/17 21:20 Dose: 999 mls/hr Insulin Human Regular 100 (units/ Sodium Chloride) 100 mls @ 10 mls/hr IV .Q10H PRN; Protocol; 10 UNITS/HR PRN Reason: TITRATE PER MD ORDER Last Titration: 01/22/17 07:40 Dose: 0 units/hr, 0 mls/hr Sodium Chloride (Sodium Chloride 0.9%) 1,000 mls @ 999 mls/hr IV .Q1H1M STA Stop: 01/21/17 22:24 Last Admin: 01/21/17 21:32 Dose: 999 mls/hr Sodium Chloride (Sodium Chloride 0.9%) 2,000 mls @ 999 mls/hr IV .Q2H1M STA Stop: 01/21/17 23:41 Last Admin: 01/21/17 22:03 Dose: 999 mls/hr Potassium Chloride 20 meq/ (Sodium Chloride) 1,010 mls @ 200 mls/hr IV .Q5H3M [facility] Last Admin: 01/22/17 00:27 Dose: 200 mls/hr Potassium Chloride/Dextrose/Sod Cl 10 ml/ Dextrose/Sodium Chloride 1,010 mls @ 150 mls/hr IV .Q6H44M [facility] Last Admin: 01/22/17 05:13 Dose: 150 mls/hr Potassium Phosphate 15 mmole/ (Sodium Chloride) 255 mls @ 42.5 mls/hr IVPB ONCE ONE Stop: 01/22/17 11:28 Last Admin: 01/22/17 06:01 Dose: 42.5 mls/hr Insulin Detemir (Levemir) 15 unit SC Q12 MARTIN Insulin Detemir (Levemir) 15 unit SC Q12 MARTIN Last Admin: 01/22/17 09:25 Dose: Insulin Human Regular (Humulin R) 10 units IVP STAT STA Stop: 01/21/17 21:10 Last Admin: 01/21/17 21:26 Dose: 10 units Metoprolol Tartrate (Lopressor) 25 mg PO ONCE STA Stop: 01/21/17 20:13 Last Admin: 01/21/17 20:25 Dose: 25 mg Morphine Sulfate (Morphine) 0.5 mg IVP Q4H PRN PRN Reason: Pain, Mild (1-3) Last Admin: 01/22/17 00:34 Dose: 0.5 mg Re-Assess: [facility] Pain Assessment Document 01/22/17 01:34 JESUS (Rec: 01/22/17 04:45 JESUS TRAINPC-FIX) Pain Reassessment Is this a pain reassessment? Yes Sleep Is patient sleeping during reassessment? No Presence of Pain Presence of Pain Yes Pain Scale Used Pain Scale Used Numeric Location Upper or Lower Lower Pain Location Body Site Abdomen Description Description Constant Intensity of Pain at present 5 Acceptable Level of Pain 0 Radiation Location ABD. TO BACK Pain Behavior Moaning Guarding Restlessness Facial Grimacing Aggravating Factors ADL's Changing Position Alleviating Factors/Management Medication Techniques Alleviating Factors Medication Effects of Pain DISCOMFORT Effectiveness of Techniques NOT EFFECTIVE Pain not relieved and LIP/MD was Yes notified Morphine Sulfate (Morphine) 1 mg IVP Q4H STA Stop: 01/22/17 01:43 Last Admin: 01/22/17 02:00 Dose: 1 mg Re-Assess: [facility] Pain Assessment Document 01/22/17 03:00 JESUS (Rec: 01/22/17 05:52 JESUS [id number] Pain Reassessment Is this a pain reassessment? Yes Sleep Is patient sleeping during reassessment? No Presence of Pain Presence of Pain No Pain Scale Used Pain Scale Used Numeric Location Left, Right or Bilateral Bilateral Upper or Lower Lower Pain Location Body Site Abdomen Description Intensity of Pain at present 0 Alleviating Factors/Management Medication Techniques Alleviating Factors Medication Effectiveness of Techniques JUST GIVING MED. Morphine Sulfate (Morphine) 1 mg IVP STAT STA Stop: 01/22/17 05:33 Last Admin: 01/22/17 05:47 Dose: 1 mg Re-Assess: [facility] Pain Assessment Document 01/22/17 06:47 JESUS (Rec: 01/22/17 07:47 JESUS TRAINPC-FIX) Pain Reassessment Is this a pain reassessment? Yes Sleep Is patient sleeping during reassessment? Yes Pain Scale Used Pain Scale Used Numeric Description Intensity of Pain at present 0 Acceptable Level of Pain 0 Alleviating Factors/Management Medication Techniques Alleviating Factors Medication Effectiveness of Techniques EFFECTIVE Potassium Phos/Sodium Phos (Neutra-Phos) 1 pkt PO TID MARTIN Stop: 01/23/17 00:00 Last Admin: 01/22/17 17:20 Dose: 1 pkt Prednisone (Prednisone Tab) 20 mg PO DAILY MARTIN Prednisone (Prednisone Tab) 30 mg PO DAILY [facility] Last Admin: 01/22/17 11:53 Dose: 30 mg - Scribe Statement The provider has reviewed the documentation as recorded by the Scribe 01/21/2017 Cherri Carrasco Provider Judy Attestation: All medical record entries made by the Ryanibdavid were at my direction and personally dictated by me. I have reviewed the chart and agree that the record accurately reflects my personal performance of the history, physical exam, medical decision making, and the department course for this patient. I have also personally directed, reviewed, and agree with the discharge instructions and disposition. Disposition/Present on Arrival - Present on Arrival Any Indicators Present on Arrival: No History of DVT/PE: No History of Uncontrolled Diabetes: No Urinary Catheter: No History of Decub. Ulcer: No History Surgical Site Infection Following: None - Disposition Have Diagnosis and Disposition been Completed?: Yes Diagnosis: DKA (diabetic ketoacidoses) Disposition: HOSPITALIZED Disposition Time: 21:23 Patient Plan: Admission Patient Problems: Current Active Problems Problem Status Onset DKA (diabetic ketoacidoses) Acute Condition: STABLE
[2017-01-21 20:41] LABS: URINE BILIRUBIN NEGATIVE (NEGATIVE); URINE BLOOD TRACE-INTACT (NEGATIVE); URINE GLUCOSE (UA) >=1000 mg/dL (NEGATIVE); URINE KETONE NEGATIVE (NEGATIVE); URINE LEUKOCYTE ESTERASE NEGATIVE Leu/uL (NEGATIVE); URINE PROTEIN NEGATIVE mg/dL (<30 mg/dL); URINE UROBILINOGEN 0.2 E.U./dL (<1 E.U./dL)
[2017-01-21 20:44] LABS: ALB/GLOB RATIO 1.4 (1.1-1.8); ALKALINE PHOSPHATASE 255 U/L (38-133); ALT/SGPT 41 U/L (7-56); BLOOD UREA NITROGEN 26 mg/dL (7-21); CALCIUM 9.8 mg/dL (8.4-10.5); CARBON DIOXIDE 18 mmol/L (21-33); CHLORIDE 85 mmol/L (98-107); GFR AFRICAN-AMERICAN > 60; POTASSIUM 5.5 mmol/L (3.6-5.0); SODIUM 127 mmol/L (132-148); TOTAL PROTEIN 7.2 g/dL (5.8-8.3)
[2017-01-21 20:46] LABS: URINE APPEARANCE CLEAR (CLEAR); URINE COLOR YELLOW (YELLOW)
[2017-01-21 20:47] LABS: INR 1.03 (0.93-1.08); PARTIAL THROMBOPLASTIN TIME 24.9 Seconds (23.7-30.8)
[2017-01-21 20:50] LABS: AST/SGOT 26 U/L (15-59)
[2017-01-21 20:52] LABS: URINE RBC NEGATIVE /hpf (0-2); URINE WBC NEGATIVE /hpf (0-6)
[2017-01-21 21:05] LABS: TROPONIN I < 0.01 ng/mL
[2017-01-21 21:08] LABS: GLUCOSE,RANDOM 1270 mg/dL (70-110)
[2017-01-21] MEDS ORDERED: Insulin Regular 1 UNITS/0.01 ML ML IVP STA (21:09)
[2017-01-21] MEDS ORDERED: Insulin Regular 100 UNITS in Sodium Chloride 0.9% 99 ML IV PRN (21:10)
[2017-01-21] MEDS ORDERED: Sodium Chloride 0.9% 2,000 ML IV STA (21:41)
[2017-01-21 22:36] LABS: PLATELET COUNT 224 10^3/uL (120.0-450.0)
[2017-01-22] MEDS ORDERED: Morphine 2 mg/ml ISec IVP PRN (00:25)
--- NOTE | 2017-01-22 01:05 | CP.PCM.HP ---
<VEROHALIMA - Last Filed: 01/22/17 02:27> History of Present Illness - History of Present Illness History of Present Illness: Halima Matthew, PGY1, H&P for Dr. Sotomayor: CC: sob x 1-2 days 36M with PMH allergic interstitial nephritis, ARF, renal stones, presents for sob x 1-2 days [employer]. Pt states that for the few days, he has been feeling generalized weakness, polydipsia (consuming a lot of cranberry juice and regular soda), polyuria, fatigue, decreased appetite, anorexia, mild confusion, and lower crampy abdominal pain that radiates to the back bilaterally. He also complain of some sore throat for the past few days. Denies dysuria, n/v, weight loss, decreased perspiration, f/c, heartburn, cough, arthralgia, neck pain. In ED, pt tachycardic HR 125-134, BP 136/99, EKG showed HR 150 s tachy. Labs significant for leukocytosis 16, Na 127, K 5.5, Cl 85, HCO3 18, BUN/Cr 26/1.6, BS 1270. agap 24. + d dimer, trop negx1, nrml BNP. 10 point ROS obtained and negative except as per HPI. PMhx: ARF - AIN, plaque psoriasis, lumbar disc degeneration, history of renal stones, HTN, MRSA - scrotal area PSH: drainage of fluid- scrotal area (MRSA) - few years ago Allergies: sunlight - causes extreme sunburns Fam Hx: Father, CHF, Mom, glaucoma SH: denies tobacco use/alcohol use only 3-4x per year/denies illicit drug use. Lives at apartment by self. 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 Meds: Norvasc 5 mg PO daily Ranitidine 150 mg PO daily Omeprazole 40 mg PO daily Flexeril 10 mg PO q 8h prn Prednisone 40 mg PO daily Acetaminophen w Codeine 1 tab q 6 Acetaminophen 500 mg PO q 6h Present on Admission - Present on Admission Any Indicators Present on Admission: No History of DVT/PE: No History of Uncontrolled Diabetes: No Urinary Catheter: No Decubitus Ulcer Present: No History Surgical Site Infection Following: None Review of Systems - Review of Systems All systems: reviewed and no additional remarkable complaints except Review of Systems: as per HPI Past Patient History - Infectious Disease Hx of Infectious Diseases: None - Tetanus Immunizations Tetanus Immunization: >10 years Ago - Past Social History Smoking Status: Former Smoker - CARDIAC Hx Cardiac Disorders: No - PULMONARY Hx Respiratory Disorders: No - NEUROLOGICAL Hx Neurological Disorder: No - HEENT Hx HEENT Problems: Yes (eyeglasses) - RENAL Hx Chronic Kidney Disease: No - ENDOCRINE/METABOLIC Hx Endocrine Disorders: No - HEMATOLOGICAL/ONCOLOGICAL Hx Blood Disorders: No - INTEGUMENTARY Hx Dermatological Problems: Yes (Psoriasis (Left Forearm and Scrotum)) Hx Psoriasis: Yes Other/Comment: psoriasis scalp, face, arms legs abd eyebrows testicles chest multiple dry patches of skin, pt suffered 2nd and 3rd degree nam to right hand 2 or 3 yrs ago while cooking, 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 - MUSCULOSKELETAL/RHEUMATOLOGICAL Hx Falls: No - GASTROINTESTINAL Hx Gastrointestinal Disorders: Yes (obesse) - GENITOURINARY/GYNECOLOGICAL Hx Genitourinary Disorders: No - PSYCHIATRIC Hx Psychophysiologic Disorder: No Hx Substance Use: No - SURGICAL HISTORY Other/Comment: 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 - ANESTHESIA Hx Anesthesia: No Meds Allergies/Adverse Reactions: Allergies Allergy/AdvReac Type Severity Reaction Status Date / Time sun Allergy SWELLING Uncoded 01/09/17 22:53 Physical Exam - Constitutional Appears: No Acute Distress - Head Exam Head Exam: ATRAUMATIC, NORMOCEPHALIC - Eye Exam Eye Exam: EOMI, Normal appearance, PERRL. absent: Conjunctival injection, Scleral icterus - ENT Exam ENT Exam: Mucous Membranes Dry, Normal Exam - Neck Exam Neck exam: Negative for: Lymphadenopathy, Thyromegaly - Respiratory Exam Respiratory Exam: Clear to Auscultation Bilateral, NORMAL BREATHING PATTERN. absent: Accessory Muscle Use, Rales, Rhonchi, Wheezes - Cardiovascular Exam Cardiovascular Exam: Tachycardia, REGULAR RHYTHM, +S1, +S2. absent: Systolic Murmur - GI/Abdominal Exam GI & Abdominal Exam: Normal Bowel Sounds, Soft, Tenderness. absent: Distended, Guarding, Rigid Additional comments: TTP in lower abdomen. - Exam Additional comments: uncircumcised male genitalia, scaling noted, diffuse circumferential erythema. no edema/discharge/pus/swelling. - Extremities Exam Extremities exam: Positive for: normal capillary refill, pedal pulses present. Negative for: calf tenderness, pedal edema, tenderness - Back Exam Back exam: NORMAL INSPECTION. absent: CVA tenderness (L), CVA tenderness (R), muscle spasm, tenderness - Neurological Exam Neurological exam: Alert, Oriented x3 - Psychiatric Exam Psychiatric exam: Normal Affect, Normal Mood - Skin Skin Exam: Dry, Intact, Normal Color, Warm Results - Vital Signs Recent Vital Signs: Last Vital Signs Temp 98.2 F 01/21/17 19:39 Pulse 99 H 01/21/17 22:00 Resp 20 01/21/17 22:00 BP 152/78 H 01/21/17 22:00 Pulse Ox 99 01/21/17 22:00 - Labs Result Diagrams: 01/21/17 21:18 01/22/17 00:20 Labs: Laboratory Results - last 24 hr 01/21/17 01/21/17 21:58 23:54 POC Glucose (mg/dL) > 500 H* > 500 H* Assessment & Plan - Assessment and Plan (Free Text) Assessment: 36M with PMH allergic interstitial nephritis (on steroids), psoriasis, renal stones, admitted for hyperglycemia, found to be agap metabolic acidosis, in HHS. Plan: Hyperglycemia 2/2 likely HHS, less likely DKA: - 2/2 likely steroid use. No known hx of DM1 or type 2. - Pt c/o polyuria, polydipsia, on high dose steroid use for allergic interstitial nephritis - BS 1270 on admission, UA neg for ketones - Received 5L NS bolus in ED, regular insulin 10 units IVPx1. - Pt admitted to ICU. - Unable to obtain ABg/VBG with shock panel, to get pH, bc patient refused test. - Currently on regular insulin drip, IVF NS at 200/h - C/w Mag and phosph q 4h, FSq 1h - Obtain Hgb A1C Pseudohyponatremia 2/2 hyperglycemic state: - Corrected Na 146; Na 127 and BS 1270 - Cont to monitor Hyperkalemia 2/2 acidotic/hyperglycemic state: - K 5.5 on admission. On insulin drip. - C/w NS with K hydration. Avoid hypokalemia. Agap metabolic acidosis with unknown pH: - initially agap 24 ->now 13. Gap closing, c/w IVF Renal insufficiency 2/2 NSAID induced allergic interstitial nephritis: - Pt seen by Nephro on last visit. Placed on Prednisone. - Will hold off Prednisone, until seen by Nephro. Nephro c/s placed, f/u. Tachycardia with elevated d-dimer in ED: - rule out PE - EKG showed HR 150, S tachy. - Unable to get CTA due to poor renal function - f/u V/Q scan SIRS (elevated HR, leukocytosis 16) likely reactive from steroid and HHS: - pt afebrile - rule out sepsis; f/u pancultures Penile erythema: - Nystatin powder - Hx of MRSA infxn/drainage at the scrotal area few years ago - If does not improve with nystatin powder, consider abx coverage and c/s ID Oral thrush: - 2/2 likely steroid use, r/o HIV - Last HIV test unknown to patient, doesnt recall one being done - Nystatin swish and swallow. Discussed with senior resident, Sharmaine, and attending, Dr. Sotomayor. Halima Gibson, PGY1 - Date & Time Date: 01/22/17 Time: 02:23 <Светлана BARRIENTOS,Víctor - Last Filed: 01/29/17 10:24> Results - Vital Signs Recent Vital Signs: Last Vital Signs Temp 98.4 F 01/25/17 08:15 Pulse 100 H 01/25/17 09:09 Resp 20 01/25/17 08:15 BP 129/95 H 01/25/17 09:09 Pulse Ox 99 01/25/17 08:15 - Labs Result Diagrams: 01/25/17 05:30 01/25/17 08:30 Attending/Attestation - Attestation I have personally seen and examined this patient.: Yes I have fully participated in the care of the patient.: Yes I have reviewed all pertinent clinical information: Yes Notes (Text): -I agree with the above H&P completed by the resident physician.
[2017-01-22 01:06] LABS: BLOOD UREA NITROGEN 21 mg/dL (7-21); CALCIUM 9.4 mg/dL (8.4-10.5); CARBON DIOXIDE 24 mmol/L (21-33); CHLORIDE 104 mmol/L (98-107); GFR AFRICAN-AMERICAN > 60; MAGNESIUM 2.3 mg/dL (1.7-2.2); PHOSPHOROUS 3.2 mg/dL (2.5-4.5); POTASSIUM 4.1 mmol/L (3.6-5.0); SODIUM 141 mmol/L (132-148)
[2017-01-22 01:17] LABS: GLUCOSE,RANDOM 515 mg/dL (70-110)
[2017-01-22] MEDS ORDERED: Morphine 2 mg/ml ISec IVP STA ×2 (01:42→05:32)
[2017-01-22 03:38] LABS: VENOUS BLOOD GAS BASE EXCESS 4.3 mmol/L (0.0-2.0)
[2017-01-22 03:46] LABS: ALB/GLOB RATIO 1.3 (1.1-1.8); ALKALINE PHOSPHATASE 136 U/L (38-133); ALT/SGPT 53 U/L (7-56); AST/SGOT 17 U/L (15-59); BILIRUBIN,TOTAL 0.8 mg/dL (0.2-1.3); BLOOD UREA NITROGEN 20 mg/dL (7-21); CALCIUM 9.6 mg/dL (8.4-10.5); CARBON DIOXIDE 24 mmol/L (21-33); CHLORIDE 111 mmol/L (98-107); GFR AFRICAN-AMERICAN > 60; GLUCOSE,RANDOM 171 mg/dL (70-110); MAGNESIUM 2.3 mg/dL (1.7-2.2); PHOSPHOROUS 2.4 mg/dL (2.5-4.5); POTASSIUM 3.9 mmol/L (3.6-5.0); SODIUM 147 mmol/L (132-148); TOTAL PROTEIN 6.9 g/dL (5.8-8.3)
[2017-01-22] MEDS ORDERED: Potassium Chl 10 mEq in D5-1/2 10 ML in Dextrose 5%/0.45% NS 1,000 ML IV SCH (04:30)
[2017-01-22] MEDS ORDERED: Potassium Phosphate 15 MMOLE in Sodium Chloride 0.9% 250 ML IVPB ONE (05:29)
[2017-01-22] MEDS: Insulin Detemir 100 units/ml Vial (Levemir) SC SCH ×2 (06:19→09:25)
[2017-01-22 06:30] LABS: URINE BILIRUBIN NEGATIVE (NEGATIVE); URINE BLOOD TRACE-INTACT (NEGATIVE); URINE GLUCOSE (UA) >=1000 mg/dL (NEGATIVE); URINE KETONE NEGATIVE (NEGATIVE); URINE LEUKOCYTE ESTERASE NEGATIVE Leu/uL (NEGATIVE); URINE PROTEIN NEGATIVE mg/dL (<30 mg/dL); URINE UROBILINOGEN 0.2 E.U./dL (<1 E.U./dL)
[2017-01-22 06:38] LABS: URINE APPEARANCE CLEAR (CLEAR); URINE COLOR YELLOW (YELLOW)
[2017-01-22 06:43] LABS: URINE RBC 0 - 2 /hpf (0-2)
[2017-01-22] MEDS ORDERED: Aluminum Hydroxide/Magnesium 30 ML, DiphenhydrAMINE 75 MG, Lidocaine 2% Viscous 30 ML PO PRN (07:28)
--- NOTE | 2017-01-22 08:20 | RAD ---
HISTORY: sob COMPARISON: 01/12/2017 FINDINGS: LUNGS: The lungs are well inflated and clear. PLEURA: No significant pleural effusion identified, no pneumothorax apparent. CARDIOVASCULAR: Normal. OSSEOUS STRUCTURES: No significant abnormalities. VISUALIZED UPPER ABDOMEN: Normal. OTHER FINDINGS: None. IMPRESSION: No active pulmonary disease.
[2017-01-22 08:40] LABS: VENOUS BLOOD GAS BASE EXCESS 3.2 mmol/L (0.0-2.0); VENOUS BLOOD PH 7.32 (7.32-7.43)
[2017-01-22] MEDS: Nystatin 100,000 Units/ml Oral Susp 5 ml UD PO SCH ×4 (09:10→21:58)
[2017-01-22] MEDS ORDERED: Insulin Detemir 100 units/ml Vial (Levemir) SC SCH ×2 (10:00→22:00)
[2017-01-22] MEDS: Nystatin 100,000 Units/gm Cream(15 gm) TOP SCH ×2 (10:00→14:00)
[2017-01-22 11:16] LABS: BASO # 0.03 K/mm3 (0.0-2.0); BASO % 0.3 % (0.0-3.0); EOS # 0.2 (0.0-0.7); EOS % 1.8 % (1.5-5.0); GRAN # 7.54 (1.4-6.5); GRAN % 74.1 % (50.0-68.0); HEMATOCRIT 37.2 % (42.0-52.0); LYMPH # 1.7 (1.2-3.4); LYMPH % 16.4 % (22.0-35.0); MEAN CELL VOLUME 82.1 fl (80.0-105.0); MEAN CORPUSCULAR HEMOGLOBIN 29.1 pg (25.0-35.0); MEAN CORPUSCULAR HGB CONC 35.5 g/dl (31.0-37.0); MEAN PLATELET VOLUME 9.9 fl (7.0-11.0); MONO # 0.8 (0.1-0.6); MONO % 7.4 % (1.0-6.0); RED CELL DISTRIBUTION WIDTH 11.8 % (11.5-14.5); WHITE BLOOD COUNT 10.2 10^3/ul (4.5-11.0)
[2017-01-22] MEDS ORDERED: Insulin Reg-MEDIUM-Coverage SC SCH (11:30)
--- NOTE | 2017-01-22 11:33 | CP.PCM.PN ---
<GilmareddyRajeevsaul - Last Filed: 01/22/17 19:50> Subjective - Date & Time of Evaluation Date of Evaluation: 01/22/17 Time of Evaluation: 11:33 - Subjective Subjective: Patient seen and examined at bedside. He reports no chest pain, sob, n/v/d/ constipation, or dysuria. Patient does complain of abdominal pain that radiates to his back. Objective - Vital Signs/Intake and Output Vital Signs (last 24 hours): Temp Pulse Resp BP Pulse Ox 97.7 F 90 16 143/88 100 01/22/17 00:04 01/22/17 09:12 01/22/17 09:12 01/22/17 09:12 01/22/17 09:12 Intake and Output: 01/22/17 01/22/17 06:59 18:59 Intake Total 6313 10 Output Total 480 Balance 5833 10 - Medications Medications: Current Medications Amlodipine Besylate (Norvasc) 5 mg PO DAILY [facility] Last Admin: 01/22/17 09:11 Dose: 5 mg Al Hydrox/Mg Hydrox/Simethicone 30 ml/Diphenhydramine HCl 75 mg/Lidocaine 30 ml 0 ml PO Q2H PRN PRN Reason: Mouth/Throat Pain Cyclobenzaprine HCl (Flexeril) 10 mg PO Q8 PRN PRN Reason: Pain, Mild (1-3) Last Admin: 01/22/17 09:08 Dose: 10 mg Insulin Detemir (Levemir) 20 unit SC HS [facility] Insulin Human Regular (Humulin R High) 0 units SC ACHS [facility] PRN Reason: Protocol Nystatin (Mycostatin Cream) 1 ea TOP TID [facility] Nystatin (Nystatin Oral Susp) 5 ml PO QID [facility] Last Admin: 01/22/17 09:10 Dose: 5 ml Ondansetron HCl (Zofran Inj) 4 mg IVP Q4H PRN PRN Reason: Nausea/Vomiting Last Admin: 01/22/17 02:00 Dose: 4 mg Pantoprazole Sodium (Protonix Inj) 40 mg IVP DAILY [facility] Last Admin: 01/22/17 09:08 Dose: 40 mg Potassium Phos/Sodium Phos (Neutra-Phos) 1 pkt PO TID [facility] Stop: 01/23/17 00:00 Prednisone (Prednisone Tab) 30 mg PO DAILY [facility] - Labs Labs: 01/22/17 11:10 01/22/17 03:10 PT 11.1 Seconds (9.9-11.8) 01/21/17 20:10 INR 1.03 (0.93-1.08) 01/21/17 20:10 APTT 24.9 Seconds (23.7-30.8) 01/21/17 20:10 - Constitutional Appears: Non-toxic, No Acute Distress - Head Exam Head Exam: ATRAUMATIC, NORMOCEPHALIC - Eye Exam Eye Exam: EOMI, Normal appearance - Respiratory Exam Respiratory Exam: Clear to Ausculation Bilateral. absent: Rales, Rhonchi, Wheezes - Cardiovascular Exam Cardiovascular Exam: Tachycardia, REGULAR RHYTHM, +S1, +S2 - GI/Abdominal Exam GI & Abdominal Exam: Soft, Normal Bowel Sounds. absent: Tenderness - Exam External exam: Erythema - Psychiatric Exam Psychiatric exam: Normal Affect, Normal Mood Assessment and Plan - Assessment and Plan (Free Text) Assessment: 36M with PMH allergic interstitial nephritis, psoriasis, renal stones, admitted for hyperglycemia, found to be in anion gap metabolic acidosis/respiratory acidosis, in HHS. Diagnosed with Diabetes during this stay. HgbA1c of 11. Electrolyte abnormalities have been corrected and anion gap is now closed. Plan: 1. Hyperglycemia 2/2 likely HHS, less likely DKA (stable): - HgbA1c of 11. Newly diagnosed diabetes. Blood sugars today between 171 and 405 -Pseuodohyponatremia and hyperkalemia have been corrected. Anion gap is closed. Patient transferred to medical floor from ICU. 2. Renal insufficiency 2/2 NSAID induced allergic interstitial nephritis: - per Nephro was on Prednisone <3 weeks ago so no need to taper. Will D/C prednisone because risk outweight benefits due to hyperglycemic state. -Nephro consulted. Recs appreciated. 3. SIRS (elevated HR, leukocytosis 16) likely reactive from steroid and HHS: - pt afebrile. No Leukocytosis today. Still tachycardic. Procal WNL @ 0.3 - rule out sepsis; f/u pancultures 4. 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 Oral thrush: - 2/2 likely steroid use, r/o HIV - Last HIV test unknown to patient, doesnt recall one being done - Nystatin swish and swallow. GI Proph Protonix Dispo: Patient will be moved to medical floor. Electrolyte abnormalities have been corrected and anion gap has closed. Patient had elevated d-dimer. V/Q scan showed low probability of PE. No Acute findings on CT Abd/Pelvis. Will have diabetic education before discharge. Patient seen, discussed, and reviewed with Attending. Derrick Corado PGY1 <Angelina Gillis MD - Last Filed: 01/23/17 17:53> Objective - Vital Signs/Intake and Output Vital Signs (last 24 hours): Temp Pulse Resp BP Pulse Ox 98.6 F 115 H 18 154/90 H 97 01/23/17 14:00 01/23/17 14:00 01/23/17 14:00 01/23/17 14:00 01/23/17 14:00 - Medications Medications: Current Medications Amlodipine Besylate (Norvasc) 10 mg PO DAILY [facility] Al Hydrox/Mg Hydrox/Simethicone 30 ml/Diphenhydramine HCl 75 mg/Lidocaine 30 ml 0 ml PO Q2H PRN PRN Reason: Mouth/Throat Pain Last Admin: 01/22/17 13:33 Dose: 1 ml Cyclobenzaprine HCl (Flexeril) 10 mg PO Q8 PRN PRN Reason: Pain, Mild (1-3) Last Admin: 01/22/17 17:19 Dose: 10 mg Insulin Detemir (Levemir) 40 unit SC HS [facility] Insulin Human Lispro (Humalog Low) 0 units SC ACHS [facility] PRN Reason: Protocol Last Admin: 01/23/17 17:09 Dose: 3 units Insulin Human Lispro (Humalog) 20 units SC AC [facility] Last Admin: 01/23/17 17:10 Dose: 20 units Nystatin (Mycostatin Cream) 1 ea TOP TID [facility] Last Admin: 01/23/17 17:10 Dose: 1 applic Nystatin (Nystatin Oral Susp) 5 ml PO QID [facility] Last Admin: 01/23/17 17:12 Dose: 5 ml Ondansetron HCl (Zofran Inj) 4 mg IVP Q4H PRN PRN Reason: Nausea/Vomiting Last Admin: 01/22/17 02:00 Dose: 4 mg Pantoprazole Sodium (Protonix Inj) 40 mg IVP DAILY [facility] Last Admin: 01/23/17 09:08 Dose: 40 mg - Labs Labs: 01/23/17 06:20 01/23/17 06:00 PT 11.1 Seconds (9.9-11.8) 01/21/17 20:10 INR 1.03 (0.93-1.08) 01/21/17 20:10 APTT 24.9 Seconds (23.7-30.8) 01/21/17 20:10 Attending/Attestation - Attestation I have personally seen and examined this patient.: Yes I have fully participated in the care of the patient.: Yes I have reviewed all pertinent clinical information, including history, physical exam and plan: Yes Notes (Text): 01/23/17 17:49 Patient was seen and examined with medical laboratory manager. Agreed with resident assessment and plan. 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 Patient D dimer was high but V/Q scan is low probability. Patient D dimer is high, we will follow up V/Q scan results. Management plan was discussed in detail with patient Education was provided. 01/23/17 17:52
--- NOTE | 2017-01-22 11:36 | CARD ---
APPROVED REPORT EKG Measurement Heart [id number] <Conclusion> Sinus tachycardia Nonspecific ST abnormality Abnormal QRS-T angle, consider primary T wave abnormality Abnormal ECG
[2017-01-22] MEDS: Potassium & Sodium Phosphate PO SCH ×3 (11:47→17:20)
[2017-01-22] MEDS: Insulin Reg-HIGH-Coverage SC SCH ×3 (11:49→21:57)
--- NOTE | 2017-01-22 12:31 | CP.CCUPN ---
CCU Subjective - Physician Review Events Since Last Encounter (Free Text): 01/22/17 12:24 Patient seen and examined. 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 Currently reports no major complaints. CCU Objective - Vital Signs / Intake & Output Vital Signs (Last 4 hours): Vital Signs Pulse Resp BP Pulse Ox 01/22/17 09:12 90 16 143/88 100 01/22/17 09:11 96 H 143/88 01/22/17 09:00 99 H 98 Intake and Output (Last 8hrs): Intake & Output 01/21/17 01/22/17 01/22/17 22:59 06:59 14:59 Intake Total 6313 10 Output Total 480 Balance 5833 10 Weight 302 lb Intake: IV 5513 10 Right Antecubital 5475 Oral 800 Output: Urine 480 Urine, Voided 480 Other: Voiding Method Urinal Urinal # Bowel Movements 0 - Physical Exam Head: Positive for: Atraumatic, Normocephalic Pupils: Positive for: PERRL Extroacular Muscles: Positive for: EOMI Conjunctiva: Positive for: Normal Mouth: Positive for: Dry Pharnyx: Negative for: ERYTHEMA, EXUDATE, Uvular Deviation Neck: Positive for: Normal Range of Motion Respiratory/Chest: Positive for: Clear to Auscultation, Good Air Exchange. Negative for: Respiratory Distress, Accessory Muscle Use Cardiovascular: Positive for: Normal S1, S2, Tachycardic. Negative for: Murmurs Abdomen: Positive for: Normal Bowel Sounds. Negative for: Tenderness, Distention, Peritoneal Signs Genitourinary Male: Positive for: Penile Discharge (scanty white discharge), Erythema (minimal eythema to the urethral meatus) Back: Positive for: Normal Inspection Upper Extremity: Positive for: Normal Inspection. Negative for: Cyanosis, Edema Lower Extremity: Positive for: Normal Inspection. Negative for: Edema Neurological: Positive for: GCS=15, CN II-XII Intact, Speech Normal Skin: Positive for: Warm, Dry, Normal Color. Negative for: Rashes Psychiatric: Positive for: Alert, Oriented x 3, Normal Insight, Normal Concentration - Medications Active Medications: Active Medications Generic Name Dose Route Start Last Admin Trade Name Freq PRN Reason Stop Dose Admin Amlodipine Besylate 5 mg 01/22/17 10:00 01/22/17 09:11 Norvasc PO 5 mg DAILY MARTIN Administration Al Hydrox/Mg Hydrox/ 0 ml 01/22/17 07:28 Simethicone 30 ml/ PO Diphenhydramine HCl 75 mg/ Q2H PRN Lidocaine 30 ml Mouth/Throat Pain Cyclobenzaprine HCl 10 mg 01/22/17 02:00 01/22/17 09:08 Flexeril PO 10 mg Q8 PRN Administration Pain, Mild (1-3) Insulin Detemir 20 unit 01/22/17 22:00 Levemir SC HS MARTIN Insulin Human Regular 0 units 01/22/17 11:30 01/22/17 11:49 Humulin R High SC 12 units ACHS MARTIN Administration Protocol Nystatin 1 ea 01/22/17 10:00 Mycostatin Cream TOP TID MARTIN Nystatin 5 ml 01/22/17 10:00 01/22/17 09:10 Nystatin Oral Susp PO 5 ml QID MARTIN Administration Ondansetron HCl 4 mg 01/21/17 21:50 01/22/17 02:00 Zofran Inj IVP 4 mg Q4H PRN Administration Nausea/Vomiting Pantoprazole Sodium 40 mg 01/22/17 10:00 01/22/17 09:08 Protonix Inj IVP 40 mg DAILY MARTIN Administration Potassium Phos/Sodium Phos 1 pkt 01/22/17 10:43 01/22/17 11:47 Neutra-Phos PO 01/23/17 00:00 1 pkt TID MARTIN Administration Prednisone 30 mg 01/22/17 11:29 01/22/17 11:53 Prednisone Tab PO 30 mg DAILY MARTIN Administration - Patient Studies Lab Studies: Lab Studies 01/22/17 01/22/17 01/22/17 Range/Units 11:22 11:10 08:30 WBC 10.2 D (4.5-11.0) 10^3/ul RBC 4.53 (3.5-6.1) 10^6/uL Hgb 13.2 L D (14.0-18.0) g/dL Hct 37.2 L (42.0-52.0) % MCV 82.1 D (80.0-105.0) fl MCH 29.1 (25.0-35.0) pg MCHC 35.5 (31.0-37.0) g/dl RDW 11.8 (11.5-14.5) % Plt Count 141 (120.0-450.0) 10^3/uL MPV 9.9 (7.0-11.0) fl Gran % 74.1 H (50.0-68.0) % Lymph % (Auto) 16.4 L (22.0-35.0) % [place] % (Auto) 7.4 H (1.0-6.0) % Eos % (Auto) 1.8 (1.5-5.0) % Baso % (Auto) 0.3 (0.0-3.0) % Gran # 7.54 H (1.4-6.5) Lymph # 1.7 (1.2-3.4) [place] # 0.8 H (0.1-0.6) Eos # 0.2 (0.0-0.7) Baso # 0.03 (0.0-2.0) K/mm3 pO2 43 (30-55) mm/Hg VBG pH 7.32 (7.32-7.43) VBG pCO2 60.0 (40-60) VBG HCO3 30.9 H (21-28) mmol/l VBG Total CO2 32.7 H (22-28) mmol.L VBG O2 Sat (Calc) 83.1 H (40-65) % VBG Base Excess 3.2 H (0.0-2.0) mmol/L VBG Potassium 4.1 (3.6-5.2) mmol/L Glucose 270 H (75-110) mg/dl Lactate 1.3 (0.7-2.1) mmol/L FiO2 21.0 % Sodium 145.0 (132-148) mmol/L Potassium (3.6-5.0) mmol/L Chloride 109.0 H (98-107) mmol/L Carbon Dioxide (21-33) mmol/L Anion Gap (10-20) BUN (7-21) mg/dL Creatinine (0.5-1.4) mg/dL Est GFR ( Amer) Est GFR (Non-Af Amer) POC Glucose (mg/dL) 405 H* (65-110) mg/dL Random Glucose (70-110) mg/dL Hemoglobin A1c (4.2-6.5) % Calcium (8.4-10.5) mg/dL Phosphorus (2.5-4.5) mg/dL Magnesium (1.7-2.2) mg/dL Total Bilirubin (0.2-1.3) mg/dL AST (15-59) U/L ALT (7-56) U/L Alkaline Phosphatase (38-133) U/L Total Protein (5.8-8.3) g/dL Albumin (3.0-4.8) g/dL Globulin gm/dL Albumin/Globulin Ratio (1.1-1.8) Venous Blood Potassium 4.1 (3.6-5.2) mmol/L Urine Color (YELLOW) Urine Appearance (CLEAR) Urine pH (4.7-8.0) Ur Specific [place] (1.005-1.035) Urine Protein (<30 mg/dL) mg/dL Urine Glucose (UA) (NEGATIVE) mg/dL Urine Ketones (NEGATIVE) mg/dL Urine Blood (NEGATIVE) Urine Nitrate (NEGATIVE) Urine Bilirubin (NEGATIVE) Urine Urobilinogen (<1 E.U./dL) E.U./dL Ur Leukocyte Esterase (NEGATIVE) Maegan/uL Urine RBC (0-2) /hpf Urine WBC (0-6) /hpf Ur Epithelial Cells (0-5) /hpf Urine Other 01/22/17 01/22/17 01/22/17 Range/Units 07:44 06:57 06:28 WBC (4.5-11.0) 10^3/ul RBC (3.5-6.1) 10^6/uL Hgb (14.0-18.0) g/dL Hct (42.0-52.0) % MCV (80.0-105.0) fl MCH (25.0-35.0) pg MCHC (31.0-37.0) g/dl RDW (11.5-14.5) % Plt Count (120.0-450.0) 10^3/uL MPV (7.0-11.0) fl Gran % (50.0-68.0) % Lymph % (Auto) (22.0-35.0) % [place] % (Auto) (1.0-6.0) % Eos % (Auto) (1.5-5.0) % Baso % (Auto) (0.0-3.0) % Gran # (1.4-6.5) Lymph # (1.2-3.4) [place] # (0.1-0.6) Eos # (0.0-0.7) Baso # (0.0-2.0) K/mm3 pO2 (30-55) mm/Hg VBG pH (7.32-7.43) VBG pCO2 (40-60) VBG HCO3 (21-28) mmol/l VBG Total CO2 (22-28) mmol.L VBG O2 Sat (Calc) (40-65) % VBG Base Excess (0.0-2.0) mmol/L VBG Potassium (3.6-5.2) mmol/L Glucose (75-110) mg/dl Lactate (0.7-2.1) mmol/L FiO2 % Sodium (132-148) mmol/L Potassium (3.6-5.0) mmol/L Chloride (98-107) mmol/L Carbon Dioxide (21-33) mmol/L Anion Gap (10-20) BUN (7-21) mg/dL Creatinine (0.5-1.4) mg/dL Est GFR ( Amer) Est GFR (Non-Af Amer) POC Glucose (mg/dL) 221 H 252 H 370 H (65-110) mg/dL Random Glucose (70-110) mg/dL Hemoglobin A1c (4.2-6.5) % Calcium (8.4-10.5) mg/dL Phosphorus (2.5-4.5) mg/dL Magnesium (1.7-2.2) mg/dL Total Bilirubin (0.2-1.3) mg/dL AST (15-59) U/L ALT (7-56) U/L Alkaline Phosphatase (38-133) U/L Total Protein (5.8-8.3) g/dL Albumin (3.0-4.8) g/dL Globulin gm/dL Albumin/Globulin Ratio (1.1-1.8) Venous Blood Potassium (3.6-5.2) mmol/L Urine Color (YELLOW) Urine Appearance (CLEAR) Urine pH (4.7-8.0) Ur Specific [place] (1.005-1.035) Urine Protein (<30 mg/dL) mg/dL Urine Glucose (UA) (NEGATIVE) mg/dL Urine Ketones (NEGATIVE) mg/dL Urine Blood (NEGATIVE) Urine Nitrate (NEGATIVE) Urine Bilirubin (NEGATIVE) Urine Urobilinogen (<1 E.U./dL) E.U./dL Ur Leukocyte Esterase (NEGATIVE) Maegan/uL Urine RBC (0-2) /hpf Urine WBC (0-6) /hpf Ur Epithelial Cells (0-5) /hpf Urine Other 01/22/17 01/22/17 01/22/17 Range/Units 05:35 05:02 03:58 WBC (4.5-11.0) 10^3/ul RBC (3.5-6.1) 10^6/uL Hgb (14.0-18.0) g/dL Hct (42.0-52.0) % MCV (80.0-105.0) fl MCH (25.0-35.0) pg MCHC (31.0-37.0) g/dl RDW (11.5-14.5) % Plt Count (120.0-450.0) 10^3/uL MPV (7.0-11.0) fl Gran % (50.0-68.0) % Lymph % (Auto) (22.0-35.0) % [place] % (Auto) (1.0-6.0) % Eos % (Auto) (1.5-5.0) % Baso % (Auto) (0.0-3.0) % Gran # (1.4-6.5) Lymph # (1.2-3.4) [place] # (0.1-0.6) Eos # (0.0-0.7) Baso # (0.0-2.0) K/mm3 pO2 (30-55) mm/Hg VBG pH (7.32-7.43) VBG pCO2 (40-60) VBG HCO3 (21-28) mmol/l VBG Total CO2 (22-28) mmol.L VBG O2 Sat (Calc) (40-65) % VBG Base Excess (0.0-2.0) mmol/L VBG Potassium (3.6-5.2) mmol/L Glucose (75-110) mg/dl Lactate (0.7-2.1) mmol/L FiO2 % Sodium (132-148) mmol/L Potassium (3.6-5.0) mmol/L Chloride (98-107) mmol/L Carbon Dioxide (21-33) mmol/L Anion Gap (10-20) BUN (7-21) mg/dL Creatinine (0.5-1.4) mg/dL Est GFR ( Amer) Est GFR (Non-Af Amer) POC Glucose (mg/dL) 171 H 180 H (65-110) mg/dL Random Glucose (70-110) mg/dL Hemoglobin A1c (4.2-6.5) % Calcium (8.4-10.5) mg/dL Phosphorus (2.5-4.5) mg/dL Magnesium (1.7-2.2) mg/dL Total Bilirubin (0.2-1.3) mg/dL AST (15-59) U/L ALT (7-56) U/L Alkaline Phosphatase (38-133) U/L Total Protein (5.8-8.3) g/dL Albumin (3.0-4.8) g/dL Globulin gm/dL Albumin/Globulin Ratio (1.1-1.8) Venous Blood Potassium (3.6-5.2) mmol/L Urine Color Yellow (YELLOW) Urine Appearance Clear (CLEAR) Urine pH 6.0 (4.7-8.0) Ur Specific [place] <= 1.005 (1.005-1.035) Urine Protein Negative (<30 mg/dL) mg/dL Urine Glucose (UA) >=1000 (NEGATIVE) mg/dL Urine Ketones Negative (NEGATIVE) mg/dL Urine Blood Trace-intact H (NEGATIVE) Urine Nitrate Negative (NEGATIVE) Urine Bilirubin Negative (NEGATIVE) Urine Urobilinogen 0.2 (<1 E.U./dL) E.U./dL Ur Leukocyte Esterase Negative (NEGATIVE) Maegan/uL Urine RBC 0 - 2 (0-2) /hpf Urine WBC 1 - 3 (0-6) /hpf Ur Epithelial Cells 1 - 3 (0-5) /hpf Urine Other Uyeast 01/22/17 01/22/17 01/22/17 Range/Units 03:10 03:10 03:00 WBC (4.5-11.0) 10^3/ul RBC (3.5-6.1) 10^6/uL Hgb (14.0-18.0) g/dL Hct (42.0-52.0) % MCV (80.0-105.0) fl MCH (25.0-35.0) pg MCHC (31.0-37.0) g/dl RDW (11.5-14.5) % Plt Count (120.0-450.0) 10^3/uL MPV (7.0-11.0) fl Gran % (50.0-68.0) % Lymph % (Auto) (22.0-35.0) % [place] % (Auto) (1.0-6.0) % Eos % (Auto) (1.5-5.0) % Baso % (Auto) (0.0-3.0) % Gran # (1.4-6.5) Lymph # (1.2-3.4) [place] # (0.1-0.6) Eos # (0.0-0.7) Baso # (0.0-2.0) K/mm3 pO2 115 H (30-55) mm/Hg VBG pH 7.50 H (7.32-7.43) VBG pCO2 35.0 L (40-60) VBG HCO3 27.3 (21-28) mmol/l VBG Total CO2 28.4 H (22-28) mmol.L VBG O2 Sat (Calc) 99.6 H (40-65) % VBG Base Excess 4.3 H (0.0-2.0) mmol/L VBG Potassium 3.8 (3.6-5.2) mmol/L Glucose 175 H (75-110) mg/dl Lactate 2.1 (0.7-2.1) mmol/L FiO2 21.0 % Sodium 147.0 147 (132-148) mmol/L Potassium 3.9 (3.6-5.0) mmol/L Chloride 112.0 H 111 H (98-107) mmol/L Carbon Dioxide 24 (21-33) mmol/L Anion Gap 16 (10-20) BUN 20 (7-21) mg/dL Creatinine 1.2 (0.5-1.4) mg/dL Est GFR ( Amer) > 60 Est GFR (Non-Af Amer) > 60 POC Glucose (mg/dL) (65-110) mg/dL Random Glucose 171 H (70-110) mg/dL Hemoglobin A1c 11.0 H D (4.2-6.5) % Calcium 9.6 (8.4-10.5) mg/dL Phosphorus 2.4 L (2.5-4.5) mg/dL Magnesium 2.3 H (1.7-2.2) mg/dL Total Bilirubin 0.8 (0.2-1.3) mg/dL AST 17 (15-59) U/L ALT 53 (7-56) U/L Alkaline Phosphatase 136 H (38-133) U/L Total Protein 6.9 (5.8-8.3) g/dL Albumin 3.9 (3.0-4.8) g/dL Globulin 3.1 gm/dL Albumin/Globulin Ratio 1.3 (1.1-1.8) Venous Blood Potassium 3.8 (3.6-5.2) mmol/L Urine Color (YELLOW) Urine Appearance (CLEAR) Urine pH (4.7-8.0) Ur Specific [place] (1.005-1.035) Urine Protein (<30 mg/dL) mg/dL Urine Glucose (UA) (NEGATIVE) mg/dL Urine Ketones (NEGATIVE) mg/dL Urine Blood (NEGATIVE) Urine Nitrate (NEGATIVE) Urine Bilirubin (NEGATIVE) Urine Urobilinogen (<1 E.U./dL) E.U./dL Ur Leukocyte Esterase (NEGATIVE) Maegan/uL Urine RBC (0-2) /hpf Urine WBC (0-6) /hpf Ur Epithelial Cells (0-5) /hpf Urine Other 01/22/17 01/22/17 01/22/17 Range/Units 02:51 02:09 01:14 WBC (4.5-11.0) 10^3/ul RBC (3.5-6.1) 10^6/uL Hgb (14.0-18.0) g/dL Hct (42.0-52.0) % MCV (80.0-105.0) fl MCH (25.0-35.0) pg MCHC (31.0-37.0) g/dl RDW (11.5-14.5) % Plt Count (120.0-450.0) 10^3/uL MPV (7.0-11.0) fl Gran % (50.0-68.0) % Lymph % (Auto) (22.0-35.0) % [place] % (Auto) (1.0-6.0) % Eos % (Auto) (1.5-5.0) % Baso % (Auto) (0.0-3.0) % Gran # (1.4-6.5) Lymph # (1.2-3.4) [place] # (0.1-0.6) Eos # (0.0-0.7) Baso # (0.0-2.0) K/mm3 pO2 (30-55) mm/Hg VBG pH (7.32-7.43) VBG pCO2 (40-60) VBG HCO3 (21-28) mmol/l VBG Total CO2 (22-28) mmol.L VBG O2 Sat (Calc) (40-65) % VBG Base Excess (0.0-2.0) mmol/L VBG Potassium (3.6-5.2) mmol/L Glucose (75-110) mg/dl Lactate (0.7-2.1) mmol/L FiO2 % Sodium (132-148) mmol/L Potassium (3.6-5.0) mmol/L Chloride (98-107) mmol/L Carbon Dioxide (21-33) mmol/L Anion Gap (10-20) BUN (7-21) mg/dL Creatinine (0.5-1.4) mg/dL Est GFR ( Amer) Est GFR (Non-Af Amer) POC Glucose (mg/dL) 252 H 314 H 401 H* (65-110) mg/dL Random Glucose (70-110) mg/dL Hemoglobin A1c (4.2-6.5) % Calcium (8.4-10.5) mg/dL Phosphorus (2.5-4.5) mg/dL Magnesium (1.7-2.2) mg/dL Total Bilirubin (0.2-1.3) mg/dL AST (15-59) U/L ALT (7-56) U/L Alkaline Phosphatase (38-133) U/L Total Protein (5.8-8.3) g/dL Albumin (3.0-4.8) g/dL Globulin gm/dL Albumin/Globulin Ratio (1.1-1.8) Venous Blood Potassium (3.6-5.2) mmol/L Urine Color (YELLOW) Urine Appearance (CLEAR) Urine pH (4.7-8.0) Ur Specific [place] (1.005-1.035) Urine Protein (<30 mg/dL) mg/dL Urine Glucose (UA) (NEGATIVE) mg/dL Urine Ketones (NEGATIVE) mg/dL Urine Blood (NEGATIVE) Urine Nitrate (NEGATIVE) Urine Bilirubin (NEGATIVE) Urine Urobilinogen (<1 E.U./dL) E.U./dL Ur Leukocyte Esterase (NEGATIVE) Maegan/uL Urine RBC (0-2) /hpf Urine WBC (0-6) /hpf Ur Epithelial Cells (0-5) /hpf Urine Other 01/22/17 01/21/17 01/21/17 Range/Units 00:20 23:54 21:58 WBC (4.5-11.0) 10^3/ul RBC (3.5-6.1) 10^6/uL Hgb (14.0-18.0) g/dL Hct (42.0-52.0) % MCV (80.0-105.0) fl MCH (25.0-35.0) pg MCHC (31.0-37.0) g/dl RDW (11.5-14.5) % Plt Count (120.0-450.0) 10^3/uL MPV (7.0-11.0) fl Gran % (50.0-68.0) % Lymph % (Auto) (22.0-35.0) % [place] % (Auto) (1.0-6.0) % Eos % (Auto) (1.5-5.0) % Baso % (Auto) (0.0-3.0) % Gran # (1.4-6.5) Lymph # (1.2-3.4) [place] # (0.1-0.6) Eos # (0.0-0.7) Baso # (0.0-2.0) K/mm3 pO2 (30-55) mm/Hg VBG pH (7.32-7.43) VBG pCO2 (40-60) VBG HCO3 (21-28) mmol/l VBG Total CO2 (22-28) mmol.L VBG O2 Sat (Calc) (40-65) % VBG Base Excess (0.0-2.0) mmol/L VBG Potassium (3.6-5.2) mmol/L Glucose (75-110) mg/dl Lactate (0.7-2.1) mmol/L FiO2 % Sodium 141 (132-148) mmol/L Potassium 4.1 (3.6-5.0) mmol/L Chloride 104 (98-107) mmol/L Carbon Dioxide 24 (21-33) mmol/L Anion Gap 17 (10-20) BUN 21 (7-21) mg/dL Creatinine 1.3 (0.5-1.4) mg/dL Est GFR ( Amer) > 60 Est GFR (Non-Af Amer) > 60 POC Glucose (mg/dL) > 500 H* > 500 H* (65-110) mg/dL Random Glucose 515 H* D (70-110) mg/dL Hemoglobin A1c (4.2-6.5) % Calcium 9.4 (8.4-10.5) mg/dL Phosphorus 3.2 (2.5-4.5) mg/dL Magnesium 2.3 H (1.7-2.2) mg/dL Total Bilirubin (0.2-1.3) mg/dL AST (15-59) U/L ALT (7-56) U/L Alkaline Phosphatase (38-133) U/L Total Protein (5.8-8.3) g/dL Albumin (3.0-4.8) g/dL Globulin gm/dL Albumin/Globulin Ratio (1.1-1.8) Venous Blood Potassium (3.6-5.2) mmol/L Urine Color (YELLOW) Urine Appearance (CLEAR) Urine pH (4.7-8.0) Ur Specific [place] (1.005-1.035) Urine Protein (<30 mg/dL) mg/dL Urine Glucose (UA) (NEGATIVE) mg/dL Urine Ketones (NEGATIVE) mg/dL Urine Blood (NEGATIVE) Urine Nitrate (NEGATIVE) Urine Bilirubin (NEGATIVE) Urine Urobilinogen (<1 E.U./dL) E.U./dL Ur Leukocyte Esterase (NEGATIVE) Maegan/uL Urine RBC (0-2) /hpf Urine WBC (0-6) /hpf Ur Epithelial Cells (0-5) /hpf Urine Other Laboratory Results - last 24 hr 01/21/17 01/21/17 01/22/17 21:58 23:54 00:20 WBC RBC Hgb Hct MCV MCH MCHC RDW Plt Count MPV Gran % Lymph % (Auto) [place] % (Auto) Eos % (Auto) Baso % (Auto) Gran # Lymph # [place] # Eos # Baso # pO2 VBG pH VBG pCO2 VBG HCO3 VBG Total CO2 VBG O2 Sat (Calc) VBG Base Excess VBG Potassium Glucose Lactate FiO2 Sodium 141 Potassium 4.1 Chloride 104 Carbon Dioxide 24 Anion Gap 17 BUN 21 Creatinine 1.3 Est GFR ( Amer) > 60 Est GFR (Non-Af Amer) > 60 POC Glucose (mg/dL) > 500 H* > 500 H* Random Glucose 515 H* D Hemoglobin A1c Calcium 9.4 Phosphorus 3.2 Magnesium 2.3 H Total Bilirubin AST ALT Alkaline Phosphatase Total Protein Albumin Globulin Albumin/Globulin Ratio Venous Blood Potassium Urine Color Urine Appearance Urine pH Ur Specific [place] Urine Protein Urine Glucose (UA) Urine Ketones Urine Blood Urine Nitrate Urine Bilirubin Urine Urobilinogen Ur Leukocyte Esterase Urine RBC Urine WBC Ur Epithelial Cells Urine Other 01/22/17 01/22/17 01/22/17 01:14 02:09 02:51 WBC RBC Hgb Hct MCV MCH MCHC RDW Plt Count MPV Gran % Lymph % (Auto) [place] % (Auto) Eos % (Auto) Baso % (Auto) Gran # Lymph # [place] # Eos # Baso # pO2 VBG pH VBG pCO2 VBG HCO3 VBG Total CO2 VBG O2 Sat (Calc) VBG Base Excess VBG Potassium Glucose Lactate FiO2 Sodium Potassium Chloride Carbon Dioxide Anion Gap BUN Creatinine Est GFR ( Amer) Est GFR (Non-Af Amer) POC Glucose (mg/dL) 401 H* 314 H 252 H Random Glucose Hemoglobin A1c Calcium Phosphorus Magnesium Total Bilirubin AST ALT Alkaline Phosphatase Total Protein Albumin Globulin Albumin/Globulin Ratio Venous Blood Potassium Urine Color Urine Appearance Urine pH Ur Specific [place] Urine Protein Urine Glucose (UA) Urine Ketones Urine Blood Urine Nitrate Urine Bilirubin Urine Urobilinogen Ur Leukocyte Esterase Urine RBC Urine WBC Ur Epithelial Cells Urine Other 01/22/17 01/22/17 01/22/17 03:00 03:10 03:10 WBC RBC Hgb Hct MCV MCH MCHC RDW Plt Count MPV Gran % Lymph % (Auto) [place] % (Auto) Eos % (Auto) Baso % (Auto) Gran # Lymph # [place] # Eos # Baso # pO2 115 H VBG pH 7.50 H VBG pCO2 35.0 L VBG HCO3 27.3 VBG Total CO2 28.4 H VBG O2 Sat (Calc) 99.6 H VBG Base Excess 4.3 H VBG Potassium 3.8 Glucose 175 H Lactate 2.1 FiO2 21.0 Sodium 147 147.0 Potassium 3.9 Chloride 111 H 112.0 H Carbon Dioxide 24 Anion Gap 16 BUN 20 Creatinine 1.2 Est GFR ( Amer) > 60 Est GFR (Non-Af Amer) > 60 POC Glucose (mg/dL) Random Glucose 171 H Hemoglobin A1c 11.0 H D Calcium 9.6 Phosphorus 2.4 L Magnesium 2.3 H Total Bilirubin 0.8 AST 17 ALT 53 Alkaline Phosphatase 136 H Total Protein 6.9 Albumin 3.9 Globulin 3.1 Albumin/Globulin Ratio 1.3 Venous Blood Potassium 3.8 Urine Color Urine Appearance Urine pH Ur Specific [place] Urine Protein Urine Glucose (UA) Urine Ketones Urine Blood Urine Nitrate Urine Bilirubin Urine Urobilinogen Ur Leukocyte Esterase Urine RBC Urine WBC Ur Epithelial Cells Urine Other 01/22/17 01/22/17 01/22/17 03:58 05:02 05:35 WBC RBC Hgb Hct MCV MCH MCHC RDW Plt Count MPV Gran % Lymph % (Auto) [place] % (Auto) Eos % (Auto) Baso % (Auto) Gran # Lymph # [place] # Eos # Baso # pO2 VBG pH VBG pCO2 VBG HCO3 VBG Total CO2 VBG O2 Sat (Calc) VBG Base Excess VBG Potassium Glucose Lactate FiO2 Sodium Potassium Chloride Carbon Dioxide Anion Gap BUN Creatinine Est GFR ( Amer) Est GFR (Non-Af Amer) POC Glucose (mg/dL) 180 H 171 H Random Glucose Hemoglobin A1c Calcium Phosphorus Magnesium Total Bilirubin AST ALT Alkaline Phosphatase Total Protein Albumin Globulin Albumin/Globulin Ratio Venous Blood Potassium Urine Color Yellow Urine Appearance Clear Urine pH 6.0 Ur Specific [place] <= 1.005 Urine Protein Negative Urine Glucose (UA) >=1000 Urine Ketones Negative Urine Blood Trace-intact H Urine Nitrate Negative Urine Bilirubin Negative Urine Urobilinogen 0.2 Ur Leukocyte Esterase Negative Urine RBC 0 - 2 Urine WBC 1 - 3 Ur Epithelial Cells 1 - 3 Urine Other Uyeast 01/22/17 01/22/17 01/22/17 06:28 06:57 07:44 WBC RBC Hgb Hct MCV MCH MCHC RDW Plt Count MPV Gran % Lymph % (Auto) [place] % (Auto) Eos % (Auto) Baso % (Auto) Gran # Lymph # [place] # Eos # Baso # pO2 VBG pH VBG pCO2 VBG HCO3 VBG Total CO2 VBG O2 Sat (Calc) VBG Base Excess VBG Potassium Glucose Lactate FiO2 Sodium Potassium Chloride Carbon Dioxide Anion Gap BUN Creatinine Est GFR ( Amer) Est GFR (Non-Af Amer) POC Glucose (mg/dL) 370 H 252 H 221 H Random Glucose Hemoglobin A1c Calcium Phosphorus Magnesium Total Bilirubin AST ALT Alkaline Phosphatase Total Protein Albumin Globulin Albumin/Globulin Ratio Venous Blood Potassium Urine Color Urine Appearance Urine pH Ur Specific [place] Urine Protein Urine Glucose (UA) Urine Ketones Urine Blood Urine Nitrate Urine Bilirubin Urine Urobilinogen Ur Leukocyte Esterase Urine RBC Urine WBC Ur Epithelial Cells Urine Other 01/22/17 01/22/17 01/22/17 08:30 11:10 11:22 WBC 10.2 D RBC 4.53 Hgb 13.2 L D Hct 37.2 L MCV 82.1 D MCH 29.1 MCHC 35.5 RDW 11.8 Plt Count 141 MPV 9.9 Gran % 74.1 H Lymph % (Auto) 16.4 L [place] % (Auto) 7.4 H Eos % (Auto) 1.8 Baso % (Auto) 0.3 Gran # 7.54 H Lymph # 1.7 [place] # 0.8 H Eos # 0.2 Baso # 0.03 pO2 43 VBG pH 7.32 VBG pCO2 60.0 VBG HCO3 30.9 H VBG Total CO2 32.7 H VBG O2 Sat (Calc) 83.1 H VBG Base Excess 3.2 H VBG Potassium 4.1 Glucose 270 H Lactate 1.3 FiO2 21.0 Sodium 145.0 Potassium Chloride 109.0 H Carbon Dioxide Anion Gap BUN Creatinine Est GFR ( Amer) Est GFR (Non-Af Amer) POC Glucose (mg/dL) 405 H* Random Glucose Hemoglobin A1c Calcium Phosphorus Magnesium Total Bilirubin AST ALT Alkaline Phosphatase Total Protein Albumin Globulin Albumin/Globulin Ratio Venous Blood Potassium 4.1 Urine Color Urine Appearance Urine pH Ur Specific [place] Urine Protein Urine Glucose (UA) Urine Ketones Urine Blood Urine Nitrate Urine Bilirubin Urine Urobilinogen Ur Leukocyte Esterase Urine RBC Urine WBC Ur Epithelial Cells Urine Other Fingerstick Blood Sugar Results: 405 Review of Systems - Review of Systems Review of Systems: Negative unless otherwise stated Critical Care Progress Note - Nutrition Nutrition: Nutrition Category Date Time Status Consistent Carbohydrate [DIET] Diets 01/22/17 Breakfast Ordered Assessment/Plan - Assessment and Plan (Free Text) Assessment: 36yo male a/w HONK/HSS, Hyperglycemia 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
--- NOTE | 2017-01-22 12:38 | CT ---
PROCEDURE: CT Abdomen and Pelvis without intravenous contrast HISTORY: interstitial nephritis COMPARISON: 01/12/2017 TECHNIQUE: Without contrast. Contrast Dose: Radiation dose: Total exam DLP = 1438 mGy-cm. This CT exam was performed using one or more of the following dose reduction techniques: Automated exposure control, adjustment of the mA and/or kV according to patient size, and/or use of iterative reconstruction technique. FINDINGS: LOWER THORAX: Unremarkable. LIVER: Unremarkable. No gross lesion or ductal dilatation. GALLBLADDER AND BILE DUCTS: Unremarkable. PANCREAS: Unremarkable. No gross lesion or ductal dilatation. SPLEEN: Unremarkable. ADRENALS: Unremarkable. No mass. KIDNEYS AND URETERS: Unremarkable. No hydronephrosis. No solid mass. VASCULATURE: Unremarkable. No aortic aneurysm. BOWEL: Unremarkable. No obstruction. No gross mural thickening. APPENDIX: Unremarkable. Normal appendix. PERITONEUM: Unremarkable. No free fluid. No free air. LYMPH NODES: Unremarkable. No enlarged lymph nodes. BLADDER: Unremarkable. REPRODUCTIVE: Unremarkable. BONES: No acute fracture. OTHER FINDINGS: None. IMPRESSION: No acute findings
--- NOTE | 2017-01-22 13:49 | NM ---
COMPARISON: Portable chest 01/21/2017 TECHNIQUE: 35.0 mCi technetium 99-m DTPA aerosol. 4.0 mCI technetium 99-m MAA administered intravenously. FINDINGS: VENTILATION COMPONENT: Normal. PERFUSION COMPONENT: Normal. IMPRESSION: Lowprobability ventilation perfusion scan for pulmonary embolism.
[2017-01-22 14:22] LABS: PH,URINE 5.5 (4.7-8.0); URINE BILIRUBIN NEGATIVE (NEGATIVE); URINE BLOOD TRACE-INTACT (NEGATIVE); URINE GLUCOSE (UA) >=1000 mg/dL (NEGATIVE); URINE KETONE NEGATIVE (NEGATIVE); URINE LEUKOCYTE ESTERASE TRACE Leu/uL (NEGATIVE); URINE PROTEIN NEGATIVE mg/dL (<30 mg/dL); URINE UROBILINOGEN 0.2 E.U./dL (<1 E.U./dL)
[2017-01-22 14:23] LABS: URINE APPEARANCE CLEAR (CLEAR); URINE COLOR YELLOW (YELLOW)
[2017-01-22 14:29] LABS: URINE RBC 0 - 2 /hpf (0-2)
--- NOTE | 2017-01-22 15:01 | CP.PCM.CON ---
History of Present Illness - History of Present Illness History of Present Illness: Initial Nephrology Consultation: Assessment: Critical Acute Kidney Injury (N17.9) likely due to dehydration due to hyperglycemia: improved recently diagnosed with NSAIDs induced AIN High anion gap metabolic acidosis with superimposed metabolic alkalosis and respi alkalosis Hyperosmlar hyperglycemia (newly diagnosed diabetes mellitus) with pseudohyponatremia now with hypernatremia Obesity, chronic back pain HTN (I12.9) Plan No acute need for renal replacement therapy at this time. treatment with steroids is not needed any further as BENJIE has resolved. since therapy was <3 weeks, it can be stopped without need of tapering. Considering his current state of hyperglycemia, risk of steroids outweighs any potential benefit (if any or minimal at this time) Hypertension control with meds as ordered. Patient not on ACEI/ARB due to BENJIE but can be given as outpt once his renal fxn stable. pt on norvasc 5 mg/day at present. Monitor Input/Output, daily weights and renal function with basic metabolic panel hypotonic fluid such as 0.45% saline will be of choice if needed Dose meds/antibiotics for normal GFR. Avoid fleets enema/magnesium based laxatives. Avoid nephrotoxins/NSAIDs/ iodinated contrast (unless needed emergently) Glycemic control pt was advised that he need lifestyle modifications, dietary changes, exercise, weight loss and close medical follow up Further work up/management for DM as per primary team Thanks for allowing me to participate in care of your patient. Will follow patient with you. Please call if any Qs Dr Elliott Carmichael Office: [phone] Chief Complaint; got sick HPI: Pt is a 36 y/o M with hx of obesity, chronic back pain, recently diagnosed with NSAIDs induced AIN leading to severe BENJIE with peaked creatinine 6 mg/dL, elevated BP and was treated with steroids (prednisone 40 mg/day) presented with complaints of feeling sick for last few days with SOB, increased thirst and increased urination. pt says he has been drinking lot of soda and a gallon of cranberry juice everyday. he was found to have sugar of 1000+ and admitted to ICU. no known hx of prior DM. renal consult for BENJIE and AIN further management he feels better at this time. Denies chest pain, palpitation, shortness of breath, leg swelling at present Denies blood or bubbles in urine Denies OTC/herbal meds or NSAIDs anymore No recent iodinated contrast exposure. No obvious episodes of low BP. ROS: Constitutional Symptoms: Denies fever. No chills. No Recent Weight Changes Eyes: denies change in vision, denies watery eyes, denies double vision Ears/Nose/Mouth/Throat: Denies Abnormal Taste. No Bad breath no Bad Taste. Cardiovascular: No chest pain. There is no shortness of breath now. No palpitations. Pulmonary: No shortness of breath now no cough. Gastrointestinal: denies abdominal pain except discomfort in lower abdomen No nausea. No vomiting. Denies change in bowel habits. Denies Bleeding Genitourinary: No Change in force of strain when urinating. c/o increase in urinary frequency. No pain while urinating. Denies blood in urine. Neurological: Denies headaches. c/o dizziness. Denies loss of balance. Denies weakness, denies tingling/numbness Dermatological: No Rash or Bruising or ulcers. says psoriasis much better after taking steroids Psychiatric: Denies Anxiety. No depression. Denies hallucinations. Rheumatological: c/o joint pain as chronic back pain. Denies Joint swelling Endocrine: Denies tiredness/Fatigue denies Heat/Cold Intolerance. All other negative Physical Examination: General Appearance: Comfortable, in no acute respiratory distress, co-operative . Obese male Vitals reviewed and noted as below Head; Atraumatic, normocephalic ENT: no ulcers has thrush. Tongue is midline. Oropharynx: no rash or ulcers. EYES: Pupils are equal, round and reactive to light accommodation. Eye muscles and extraocular movement intact. Sclera is anicteric. Neck; supple no lymphadenopathy, no thyromegaly or bruit Lungs: Normal respiratory rate/effort. Breath sounds bilateral equal and clear Heart: Normal rate. s1s2 normal. No rub or gallop. Extremities: no edema. No varicose veins Neurological: Patient is alert, awake and oriented to person, place and time. No focal deficit. Strength bilateral appropriate and equal Skin: Warm and dry. Normal turgor. No rash. Palpitation: Normal elasticity for age. psoriasis improved Abdomen: Abdomen is soft. Bowel sounds +. There is no abdominal tenderness, no guarding/rigidity no organomegaly Psych: normal insight and normal affect/mood MSK: no joint tenderness or swelling. Digits and nails normal, no deformity : kidney or bladder not palpable Labs/imaging/EKG reviewed. Past medical history, past surgical history, family history, social history, allergy reviewed and noted as below Family hx: no hx of CKD. Rest non-contributory Past Patient History - Infectious Disease Hx of Infectious Diseases: None - Tetanus Immunizations Tetanus Immunization: >10 years Ago - Past Social History Smoking Status: Former Smoker - CARDIAC Hx Cardiac Disorders: No - PULMONARY Hx Respiratory Disorders: No - NEUROLOGICAL Hx Neurological Disorder: No - HEENT Hx HEENT Problems: Yes (eyeglasses) - RENAL Hx Chronic Kidney Disease: No - ENDOCRINE/METABOLIC Hx Endocrine Disorders: No - HEMATOLOGICAL/ONCOLOGICAL Hx Blood Disorders: No - INTEGUMENTARY Hx Dermatological Problems: Yes (Psoriasis (Left Forearm and Scrotum)) Hx Psoriasis: Yes Other/Comment: psoriasis scalp, face, arms legs abd eyebrows testicles chest multiple dry patches of skin, pt suffered 2nd and 3rd degree nam to right hand 2 or 3 yrs ago while cooking, 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 - MUSCULOSKELETAL/RHEUMATOLOGICAL Hx Falls: No - GASTROINTESTINAL Hx Gastrointestinal Disorders: Yes (obesse) - GENITOURINARY/GYNECOLOGICAL Hx Genitourinary Disorders: No - PSYCHIATRIC Hx Psychophysiologic Disorder: No Hx Substance Use: No - SURGICAL HISTORY Other/Comment: 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 - ANESTHESIA Hx Anesthesia: No Meds Allergies/Adverse Reactions: Allergies Allergy/AdvReac Type Severity Reaction Status Date / Time sun Allergy SWELLING Uncoded 01/09/17 22:53 - Medications Medications: Current Medications Amlodipine Besylate (Norvasc) 5 mg PO DAILY [facility] Last Admin: 01/22/17 09:11 Dose: 5 mg Al Hydrox/Mg Hydrox/Simethicone 30 ml/Diphenhydramine HCl 75 mg/Lidocaine 30 ml 0 ml PO Q2H PRN PRN Reason: Mouth/Throat Pain Last Admin: 01/22/17 13:33 Dose: 1 ml Cyclobenzaprine HCl (Flexeril) 10 mg PO Q8 PRN PRN Reason: Pain, Mild (1-3) Last Admin: 01/22/17 09:08 Dose: 10 mg Insulin Detemir (Levemir) 20 unit SC HS [facility] Insulin Human Regular (Humulin R High) 0 units SC ACHS [facility] PRN Reason: Protocol Last Admin: 01/22/17 11:49 Dose: 12 units Nystatin (Mycostatin Cream) 1 ea TOP TID [facility] Nystatin (Nystatin Oral Susp) 5 ml PO QID [facility] Last Admin: 01/22/17 09:10 Dose: 5 ml Ondansetron HCl (Zofran Inj) 4 mg IVP Q4H PRN PRN Reason: Nausea/Vomiting Last Admin: 01/22/17 02:00 Dose: 4 mg Pantoprazole Sodium (Protonix Inj) 40 mg IVP DAILY [facility] Last Admin: 01/22/17 09:08 Dose: 40 mg Potassium Phos/Sodium Phos (Neutra-Phos) 1 pkt PO TID [facility] Stop: 01/23/17 00:00 Last Admin: 01/22/17 11:47 Dose: 1 pkt Results - Vital Signs Recent Vital Signs: Last Vital Signs Temp 97.7 F 01/22/17 00:04 Pulse 90 01/22/17 09:12 Resp 16 01/22/17 09:12 BP 143/88 01/22/17 09:12 Pulse Ox 100 01/22/17 09:12 - Labs Result Diagrams: 01/22/17 11:10 01/22/17 03:10 Labs: Laboratory Results - last 24 hr 01/21/17 01/21/17 01/22/17 21:58 23:54 00:20 WBC RBC Hgb Hct MCV MCH MCHC RDW Plt Count MPV Gran % Lymph % (Auto) Traverse % (Auto) Eos % (Auto) Baso % (Auto) Gran # Lymph # Traverse # Eos # Baso # pO2 VBG pH VBG pCO2 VBG HCO3 VBG Total CO2 VBG O2 Sat (Calc) VBG Base Excess VBG Potassium Glucose Lactate FiO2 Sodium 141 Potassium 4.1 Chloride 104 Carbon Dioxide 24 Anion Gap 17 BUN 21 Creatinine 1.3 Est GFR ( Amer) > 60 Est GFR (Non-Af Amer) > 60 POC Glucose (mg/dL) > 500 H* > 500 H* Random Glucose 515 H* D Hemoglobin A1c Calcium 9.4 Phosphorus 3.2 Magnesium 2.3 H Total Bilirubin AST ALT Alkaline Phosphatase Total Protein Albumin Globulin Albumin/Globulin Ratio Venous Blood Potassium Urine Color Urine Appearance Urine pH Ur Specific Hundred Urine Protein Urine Glucose (UA) Urine Ketones Urine Blood Urine Nitrate Urine Bilirubin Urine Urobilinogen Ur Leukocyte Esterase Urine RBC Urine WBC Ur Epithelial Cells Urine Other 01/22/17 01/22/17 01/22/17 01:14 02:09 02:51 WBC RBC Hgb Hct MCV MCH MCHC RDW Plt Count MPV Gran % Lymph % (Auto) Traverse % (Auto) Eos % (Auto) Baso % (Auto) Gran # Lymph # Traverse # Eos # Baso # pO2 VBG pH VBG pCO2 VBG HCO3 VBG Total CO2 VBG O2 Sat (Calc) VBG Base Excess VBG Potassium Glucose Lactate FiO2 Sodium Potassium Chloride Carbon Dioxide Anion Gap BUN Creatinine Est GFR ( Amer) Est GFR (Non-Af Amer) POC Glucose (mg/dL) 401 H* 314 H 252 H Random Glucose Hemoglobin A1c Calcium Phosphorus Magnesium Total Bilirubin AST ALT Alkaline Phosphatase Total Protein Albumin Globulin Albumin/Globulin Ratio Venous Blood Potassium Urine Color Urine Appearance Urine pH Ur Specific Hundred Urine Protein Urine Glucose (UA) Urine Ketones Urine Blood Urine Nitrate Urine Bilirubin Urine Urobilinogen Ur Leukocyte Esterase Urine RBC Urine WBC Ur Epithelial Cells Urine Other 01/22/17 01/22/17 01/22/17 03:00 03:10 03:10 WBC RBC Hgb Hct MCV MCH MCHC RDW Plt Count MPV Gran % Lymph % (Auto) Traverse % (Auto) Eos % (Auto) Baso % (Auto) Gran # Lymph # Traverse # Eos # Baso # pO2 115 H VBG pH 7.50 H VBG pCO2 35.0 L VBG HCO3 27.3 VBG Total CO2 28.4 H VBG O2 Sat (Calc) 99.6 H VBG Base Excess 4.3 H VBG Potassium 3.8 Glucose 175 H Lactate 2.1 FiO2 21.0 Sodium 147 147.0 Potassium 3.9 Chloride 111 H 112.0 H Carbon Dioxide 24 Anion Gap 16 BUN 20 Creatinine 1.2 Est GFR ( Amer) > 60 Est GFR (Non-Af Amer) > 60 POC Glucose (mg/dL) Random Glucose 171 H Hemoglobin A1c 11.0 H D Calcium 9.6 Phosphorus 2.4 L Magnesium 2.3 H Total Bilirubin 0.8 AST 17 ALT 53 Alkaline Phosphatase 136 H Total Protein 6.9 Albumin 3.9 Globulin 3.1 Albumin/Globulin Ratio 1.3 Venous Blood Potassium 3.8 Urine Color Urine Appearance Urine pH Ur Specific Hundred Urine Protein Urine Glucose (UA) Urine Ketones Urine Blood Urine Nitrate Urine Bilirubin Urine Urobilinogen Ur Leukocyte Esterase Urine RBC Urine WBC Ur Epithelial Cells Urine Other 01/22/17 01/22/17 01/22/17 03:58 05:02 05:35 WBC RBC Hgb Hct MCV MCH MCHC RDW Plt Count MPV Gran % Lymph % (Auto) Traverse % (Auto) Eos % (Auto) Baso % (Auto) Gran # Lymph # Traverse # Eos # Baso # pO2 VBG pH VBG pCO2 VBG HCO3 VBG Total CO2 VBG O2 Sat (Calc) VBG Base Excess VBG Potassium Glucose Lactate FiO2 Sodium Potassium Chloride Carbon Dioxide Anion Gap BUN Creatinine Est GFR ( Amer) Est GFR (Non-Af Amer) POC Glucose (mg/dL) 180 H 171 H Random Glucose Hemoglobin A1c Calcium Phosphorus Magnesium Total Bilirubin AST ALT Alkaline Phosphatase Total Protein Albumin Globulin Albumin/Globulin Ratio Venous Blood Potassium Urine Color Yellow Urine Appearance Clear Urine pH 6.0 Ur Specific Hundred <= 1.005 Urine Protein Negative Urine Glucose (UA) >=1000 Urine Ketones Negative Urine Blood Trace-intact H Urine Nitrate Negative Urine Bilirubin Negative Urine Urobilinogen 0.2 Ur Leukocyte Esterase Negative Urine RBC 0 - 2 Urine WBC 1 - 3 Ur Epithelial Cells 1 - 3 Urine Other Uyeast 01/22/17 01/22/17 01/22/17 06:28 06:57 07:44 WBC RBC Hgb Hct MCV MCH MCHC RDW Plt Count MPV Gran % Lymph % (Auto) Traverse % (Auto) Eos % (Auto) Baso % (Auto) Gran # Lymph # Traverse # Eos # Baso # pO2 VBG pH VBG pCO2 VBG HCO3 VBG Total CO2 VBG O2 Sat (Calc) VBG Base Excess VBG Potassium Glucose Lactate FiO2 Sodium Potassium Chloride Carbon Dioxide Anion Gap BUN Creatinine Est GFR ( Amer) Est GFR (Non-Af Amer) POC Glucose (mg/dL) 370 H 252 H 221 H Random Glucose Hemoglobin A1c Calcium Phosphorus Magnesium Total Bilirubin AST ALT Alkaline Phosphatase Total Protein Albumin Globulin Albumin/Globulin Ratio Venous Blood Potassium Urine Color Urine Appearance Urine pH Ur Specific Hundred Urine Protein Urine Glucose (UA) Urine Ketones Urine Blood Urine Nitrate Urine Bilirubin Urine Urobilinogen Ur Leukocyte Esterase Urine RBC Urine WBC Ur Epithelial Cells Urine Other 01/22/17 01/22/17 01/22/17 08:30 11:10 11:22 WBC 10.2 D RBC 4.53 Hgb 13.2 L D Hct 37.2 L MCV 82.1 D MCH 29.1 MCHC 35.5 RDW 11.8 Plt Count 141 MPV 9.9 Gran % 74.1 H Lymph % (Auto) 16.4 L Traverse % (Auto) 7.4 H Eos % (Auto) 1.8 Baso % (Auto) 0.3 Gran # 7.54 H Lymph # 1.7 Traverse # 0.8 H Eos # 0.2 Baso # 0.03 pO2 43 VBG pH 7.32 VBG pCO2 60.0 VBG HCO3 30.9 H VBG Total CO2 32.7 H VBG O2 Sat (Calc) 83.1 H VBG Base Excess 3.2 H VBG Potassium 4.1 Glucose 270 H Lactate 1.3 FiO2 21.0 Sodium 145.0 Potassium Chloride 109.0 H Carbon Dioxide Anion Gap BUN Creatinine Est GFR ( Amer) Est GFR (Non-Af Amer) POC Glucose (mg/dL) 405 H* Random Glucose Hemoglobin A1c Calcium Phosphorus Magnesium Total Bilirubin AST ALT Alkaline Phosphatase Total Protein Albumin Globulin Albumin/Globulin Ratio Venous Blood Potassium 4.1 Urine Color Urine Appearance Urine pH Ur Specific Hundred Urine Protein Urine Glucose (UA) Urine Ketones Urine Blood Urine Nitrate Urine Bilirubin Urine Urobilinogen Ur Leukocyte Esterase Urine RBC Urine WBC Ur Epithelial Cells Urine Other 01/22/17 12:30 WBC RBC Hgb Hct MCV MCH MCHC RDW Plt Count MPV Gran % Lymph % (Auto) Traverse % (Auto) Eos % (Auto) Baso % (Auto) Gran # Lymph # Traverse # Eos # Baso # pO2 VBG pH VBG pCO2 VBG HCO3 VBG Total CO2 VBG O2 Sat (Calc) VBG Base Excess VBG Potassium Glucose Lactate FiO2 Sodium Potassium Chloride Carbon Dioxide Anion Gap BUN Creatinine Est GFR ( Amer) Est GFR (Non-Af Amer) POC Glucose (mg/dL) Random Glucose Hemoglobin A1c Calcium Phosphorus Magnesium Total Bilirubin AST ALT Alkaline Phosphatase Total Protein Albumin Globulin Albumin/Globulin Ratio Venous Blood Potassium Urine Color Yellow Urine Appearance Clear Urine pH 5.5 Ur Specific Hundred 1.010 Urine Protein Negative Urine Glucose (UA) >=1000 Urine Ketones Negative Urine Blood Trace-intact H Urine Nitrate Negative Urine Bilirubin Negative Urine Urobilinogen 0.2 Ur Leukocyte Esterase Trace H Urine RBC 0 - 2 Urine WBC 2 - 5 Ur Epithelial Cells Urine Other
--- NOTE | 2017-01-22 18:42 | CARD ---
APPROVED REPORT EXAM: Two-dimensional and M-mode echocardiogram with Doppler and color Doppler. INDICATION Congestive Heart Failure 2D DIMENSIONS Left Atrium (2D)4.3 (1.6-4.0cm)IVSd1.2 (0.7-1.1cm) LVDd4.7 (3.9-5.9cm)PWd1.3 (0.7-1.1cm) LVDs3.5 (2.5-4.0cm)FS (%) 25.4 % LVEF (%)50.1 (>50%) M-Mode DIMENSIONS Aortic Root3.80 (2.2-3.7cm)Aortic Cusp Exc.2.10 (1.5-2.0cm) Aortic Valve AoV Peak Xqfwfbxg356.0cm/Christian Peak GR.6mmHg Mitral Valve MV E Pqjxapdg30.1cm/sMV A Nruwlreu44.2cm/sE/A ratio1.0 TDI Lateral E' Peak V13.00cm/sMedial E' Peak V9.16cm/sE/Lateral E'5.1 E/Medial E'7.2 Pulmonary Valve PV Peak Ekjcyvme47.7cm/sPV Peak Grad.2mmHg Tricuspid Valve TR Peak Dagzxzee106sc/sRAP [id number] Peak Gr.25mmHg [id number] LEFT VENTRICLE The left ventricle is normal size. There is mild concentric left ventricular hypertrophy. The systolic function is mildly impaired. There is mild hypokinesis in the inferoseptal wall. RIGHT VENTRICLE The right ventricle is normal size. The right ventricular systolic function is normal. ATRIA The left atrium is mildly dilated. The right atrium size is normal. The interatrial septum is intact with no evidence for an atrial septal defect. AORTIC VALVE The aortic valve is normal in structure. No aortic regurgitation is present. There is no aortic valvular stenosis. MITRAL VALVE The mitral valve is normal in structure. Mitral regurgitation is mild. TRICUSPID VALVE The tricuspid valve is normal in structure. There is mild tricuspid regurgitation. GREAT VESSELS The aortic root is normal in size. The IVC is normal in size and collapses >50% with inspiration. PERICARDIAL EFFUSION There is no pleural effusion. There is no pericardial effusion. <Conclusion> Mildly dilated LA. Mild concentric LVH. Mildly reduced LV systolic function with inferoseptal hypokinesis. Mild MR and TR.
[2017-01-23 06:34] LABS: HEMATOCRIT 37.8 % (42.0-52.0); MEAN CELL VOLUME 82.5 fl (80.0-105.0); MEAN CORPUSCULAR HEMOGLOBIN 29.3 pg (25.0-35.0); MEAN CORPUSCULAR HGB CONC 35.4 g/dl (31.0-37.0); MEAN PLATELET VOLUME 9.6 fl (7.0-11.0); RED CELL DISTRIBUTION WIDTH 11.6 % (11.5-14.5)
[2017-01-23 07:15] LABS: ALB/GLOB RATIO 1.2 (1.1-1.8); ALKALINE PHOSPHATASE 107 U/L (38-133); ALT/SGPT 48 U/L (7-56); AST/SGOT 22 U/L (15-59); BILIRUBIN,TOTAL 0.9 mg/dL (0.2-1.3); BLOOD UREA NITROGEN 22 mg/dL (7-21); CARBON DIOXIDE 30 mmol/L (21-33); CHLORIDE 100 mmol/L (95-110); GFR AFRICAN-AMERICAN > 60; POTASSIUM 4.2 mmol/L (3.6-5.0); SODIUM 141 mmol/L (132-148); TOTAL PROTEIN 6.7 g/dL (5.8-8.3)
[2017-01-23 07:18] LABS: GLUCOSE,RANDOM 303 mg/dL (70-110)
[2017-01-23] MEDS: Insulin Reg-HIGH-Coverage SC SCH ×2 (08:06→11:33)
[2017-01-23] MEDS: Nystatin 100,000 Units/ml Oral Susp 5 ml UD PO SCH ×4 (09:08→22:13)
[2017-01-23] MEDS: Nystatin 100,000 Units/gm Cream(15 gm) TOP SCH ×3 (09:09→17:10)
--- NOTE | 2017-01-23 12:33 | CP.PCM.PN ---
Subjective - Date & Time of Evaluation Date of Evaluation: 01/23/17 Time of Evaluation: 12:26 - Subjective Subjective: Renal follow up Note pt is upset that he has DM and it was induced by prednisone given to him. Pt was explained that steroid therapy over such short course don't induce Diabetes. At the time of his severe BENJIE due to NSAIDs indued AIN, benefit of short course steroids outweighed the risks hence it was prescribed. his drinking of more than 1 gallon of sugar drinks such as juice and soda also contributed to rise in his glucose at this time, no further steroid therapy is needed hence was d/c yesterday. his renal function has remarkably improved further management of his DM/hyperglycemia as per primary team will sign off and see patient in hospital on as needed basis pt to f/up in office with me 1-2 weeks after discharge thanks for consult. Please call if any Q d/w team. Objective - Vital Signs/Intake and Output Vital Signs (last 24 hours): Temp Pulse Resp BP Pulse Ox 98.1 F 102 H 19 151/87 H 84 L 01/22/17 16:00 01/23/17 09:08 01/23/17 06:00 01/23/17 09:08 01/23/17 06:00 - Medications Medications: Current Medications Amlodipine Besylate (Norvasc) 5 mg PO DAILY [facility] Last Admin: 01/23/17 09:08 Dose: 5 mg Al Hydrox/Mg Hydrox/Simethicone 30 ml/Diphenhydramine HCl 75 mg/Lidocaine 30 ml 0 ml PO Q2H PRN PRN Reason: Mouth/Throat Pain Last Admin: 01/22/17 13:33 Dose: 1 ml Cyclobenzaprine HCl (Flexeril) 10 mg PO Q8 PRN PRN Reason: Pain, Mild (1-3) Last Admin: 01/22/17 17:19 Dose: 10 mg Insulin Detemir (Levemir) 20 unit SC HS [facility] Last Admin: 01/22/17 21:57 Dose: 20 unit Insulin Human Regular (Humulin R High) 0 units SC ACHS [facility] PRN Reason: Protocol Last Admin: 01/23/17 11:33 Dose: 12 units Nystatin (Mycostatin Cream) 1 ea TOP TID [facility] Last Admin: 01/23/17 09:09 Dose: 1 applic Nystatin (Nystatin Oral Susp) 5 ml PO QID [facility] Last Admin: 01/23/17 09:08 Dose: 5 ml Ondansetron HCl (Zofran Inj) 4 mg IVP Q4H PRN PRN Reason: Nausea/Vomiting Last Admin: 01/22/17 02:00 Dose: 4 mg Pantoprazole Sodium (Protonix Inj) 40 mg IVP DAILY [facility] Last Admin: 01/23/17 09:08 Dose: 40 mg - Labs Labs: 01/23/17 06:20 01/23/17 06:00 PT 11.1 Seconds (9.9-11.8) 01/21/17 20:10 INR 1.03 (0.93-1.08) 01/21/17 20:10 APTT 24.9 Seconds (23.7-30.8) 01/21/17 20:10
--- NOTE | 2017-01-23 15:45 | CP.PCM.PN ---
<AngeldavidDerrick - Last Filed: 01/23/17 15:45> Subjective - Date & Time of Evaluation Date of Evaluation: 01/23/17 Time of Evaluation: 15:42 - Subjective Subjective: Patient has been seen and examined. Patient sleeping and snoring before examination. Patient woke up and said "I'm fine" Denies, headache, LH, Dizziness, Chest Pain, Numbness, tingling, SOB, Abdominal Pain, dysuria. Objective - Vital Signs/Intake and Output Vital Signs (last 24 hours): Temp Pulse Resp BP Pulse Ox 98.1 F 119 H 45 H 151/87 H 99 01/22/17 16:00 01/23/17 12:00 01/23/17 12:00 01/23/17 09:08 01/23/17 08:00 - Medications Medications: Current Medications Amlodipine Besylate (Norvasc) 10 mg PO DAILY [facility] Al Hydrox/Mg Hydrox/Simethicone 30 ml/Diphenhydramine HCl 75 mg/Lidocaine 30 ml 0 ml PO Q2H PRN PRN Reason: Mouth/Throat Pain Last Admin: 01/22/17 13:33 Dose: 1 ml Cyclobenzaprine HCl (Flexeril) 10 mg PO Q8 PRN PRN Reason: Pain, Mild (1-3) Last Admin: 01/22/17 17:19 Dose: 10 mg Insulin Detemir (Levemir) 40 unit SC HS [facility] Insulin Human Lispro (Humalog Low) 0 units SC ACHS [facility] PRN Reason: Protocol Insulin Human Lispro (Humalog) 20 units SC AC [facility] Nystatin (Mycostatin Cream) 1 ea TOP TID [facility] Last Admin: 01/23/17 13:27 Dose: 1 applic Nystatin (Nystatin Oral Susp) 5 ml PO QID [facility] Last Admin: 01/23/17 13:27 Dose: 5 ml Ondansetron HCl (Zofran Inj) 4 mg IVP Q4H PRN PRN Reason: Nausea/Vomiting Last Admin: 01/22/17 02:00 Dose: 4 mg Pantoprazole Sodium (Protonix Inj) 40 mg IVP DAILY [facility] Last Admin: 01/23/17 09:08 Dose: 40 mg - Labs Labs: 01/23/17 06:20 01/23/17 06:00 PT 11.1 Seconds (9.9-11.8) 01/21/17 20:10 INR 1.03 (0.93-1.08) 01/21/17 20:10 APTT 24.9 Seconds (23.7-30.8) 01/21/17 20:10 - Constitutional Appears: Well, No Acute Distress - Head Exam Head Exam: ATRAUMATIC, NORMAL INSPECTION, NORMOCEPHALIC - Eye Exam Eye Exam: EOMI, Normal appearance - ENT Exam ENT Exam: Mucous Membranes Moist - Cardiovascular Exam Cardiovascular Exam: Tachycardia, +S1, +S2 - GI/Abdominal Exam GI & Abdominal Exam: Soft. absent: Tenderness - Exam Additional comments: Erythematous penile gland - Extremities Exam Extremities Exam: absent: Pedal Edema - Neurological Exam Neurological Exam: Alert, Oriented x3 - Psychiatric Exam Psychiatric exam: Normal Affect, Normal Mood Assessment and Plan - Assessment and Plan (Free Text) Assessment: 36M with PMH allergic interstitial nephritis, psoriasis, renal stones, admitted for hyperglycemia, found to be in anion gap metabolic acidosis/respiratory acidosis, in HHS. Diagnosed with Diabetes during this stay. HgbA1c of 11. Electrolyte abnormalities have been corrected and anion gap is now closed. Plan: 1. Hyperglycemia 2/2 likely HHS, less likely DKA (stable): - HgbA1c of 11. Newly diagnosed diabetes. Blood sugars today between 171 and 405 -Pseuodohyponatremia and hyperkalemia have been corrected. Anion gap is closed. Patient awaiting transfer to medical floor from ICU. 2. DM II (new) -HgbA1c of 11. Random glucose today of 304 -Endo Consulted (Dr. Olsen). Detemir and Lispro Insulin added per Endo 3. Renal insufficiency 2/2 NSAID induced allergic interstitial nephritis: - per Nephro was on Prednisone <3 weeks ago so no need to taper. D/C prednisone because risk outweigh benefits due to hyperglycemic state per neprho -Nephro consulted. Recs appreciated. 4. SIRS (elevated HR, leukocytosis 16) likely reactive from steroid and HHS: - pt afebrile. No Leukocytosis today. Still tachycardic. Procal WNL @ 0.3 - consider beta helen for tachycardia. - Blood cultures neg for 24 hrs, Urine cultures grew Gram + cocci (Patient is Asymptomatic), Nose cultures NO MRSA 5. Penile erythema: - Nystatin powder - Hx of MRSA infxn/drainage at the scrotal area few years ago - If does not improve with nystatin powder, consider abx coverage and c/s ID 6. Oral thrush: - 2/2 likely steroid use, r/o HIV (pending) - Nystatin swish and swallow. GI Proph Protonix Dispo: Patient will be moved to medical floor. Electrolyte abnormalities have been corrected and anion gap has closed. Patient had elevated d-dimer. V/Q scan showed low probability of PE. No Acute findings on CT Abd/Pelvis. Will have diabetic education before discharge. Patient seen, discussed, and reviewed with Attending. Derrick Corado PGY1 <Carlin BARRIENTOS,[facility] - Last Filed: 01/23/17 17:48> Objective - Vital Signs/Intake and Output Vital Signs (last 24 hours): Temp Pulse Resp BP Pulse Ox 98.6 F 115 H 18 154/90 H 97 01/23/17 14:00 01/23/17 14:00 01/23/17 14:00 01/23/17 14:00 01/23/17 14:00 - Medications Medications: Current Medications Amlodipine Besylate (Norvasc) 10 mg PO DAILY [facility] Al Hydrox/Mg Hydrox/Simethicone 30 ml/Diphenhydramine HCl 75 mg/Lidocaine 30 ml 0 ml PO Q2H PRN PRN Reason: Mouth/Throat Pain Last Admin: 01/22/17 13:33 Dose: 1 ml Cyclobenzaprine HCl (Flexeril) 10 mg PO Q8 PRN PRN Reason: Pain, Mild (1-3) Last Admin: 01/22/17 17:19 Dose: 10 mg Insulin Detemir (Levemir) 40 unit SC HS [facility] Insulin Human Lispro (Humalog Low) 0 units SC ACHS [facility] PRN Reason: Protocol Last Admin: 01/23/17 17:09 Dose: 3 units Insulin Human Lispro (Humalog) 20 units SC AC [facility] Last Admin: 01/23/17 17:10 Dose: 20 units Nystatin (Mycostatin Cream) 1 ea TOP TID [facility] Last Admin: 01/23/17 17:10 Dose: 1 applic Nystatin (Nystatin Oral Susp) 5 ml PO QID [facility] Last Admin: 01/23/17 17:12 Dose: 5 ml Ondansetron HCl (Zofran Inj) 4 mg IVP Q4H PRN PRN Reason: Nausea/Vomiting Last Admin: 01/22/17 02:00 Dose: 4 mg Pantoprazole Sodium (Protonix Inj) 40 mg IVP DAILY [facility] Last Admin: 01/23/17 09:08 Dose: 40 mg - Labs Labs: 01/23/17 06:20 01/23/17 06:00 PT 11.1 Seconds (9.9-11.8) 01/21/17 20:10 INR 1.03 (0.93-1.08) 01/21/17 20:10 APTT 24.9 Seconds (23.7-30.8) 01/21/17 20:10 Attending/Attestation - Attestation I have personally seen and examined this patient.: Yes I have fully participated in the care of the patient.: Yes I have reviewed all pertinent clinical information, including history, physical exam and plan: Yes Notes (Text): 01/23/17 17:43 Patient was seen and examined with biomedical service engineer. Agreed with resident assessment and plan. 36 y/o M with hx of obesity, chronic back pain, recently diagnosed with NSAIDs induced AIN leading to severe BENJIE with peaked creatinine 6 mg/dL, elevated BP and was treated with steroids (prednisone 40 mg/day) presented with complaints of feeling sick for last few days with SOB, increased thirst and increased urination.. he was found to have sugar of 1000+ and was admitted to ICU ,he was treated for hyperosmolar state with aggressive IV hydration and insulin drip.He is off insulin drip, blood sugars are still running high. Hemoglobin 1 AC is 11.We will continue Levemir and insulin.We will also get Endocrine consult ,. Patient is c/o blurring of visions likely Diabetic Retinopathy, we will get Ophthalmology consult, Patient renal functions are normal. Prednisone is DC as it was less than 3 weeks . Patient D dimer was high but V/Q scan is low probability. Blood pressure is running high, will add beta helen. Management plan was discussed in detail with patient Education was provided.
[2017-01-23] MEDS: Insulin Lispro (humaLOG) LOW Coverage SC SCH ×2 (17:09→22:29)
[2017-01-23] MEDS: Insulin Lispro 1 UNITS/0.01 ML SC SCH (17:10)
[2017-01-23 18:19] VITALS: RESP 20
[2017-01-23] MEDS: Insulin Detemir 100 units/ml Vial (Levemir) SC SCH (21:37)
--- NOTE | 2017-01-24 02:35 | CON ---
DATE: ENDOCRINOLOGY CONSULT LOCATION: Room 564, he still in the ICU, but being transferred to 564. HISTORY OF PRESENT ILLNESS: This is a 36-year-old male with recent onset of uncontrolled type 1 insulin-dependent diabetes presenting here with hyperosmolar hyperglycemic state and ketosis and marked dehydration and is now being referred for diabetic evaluation and management. He received intensive insulin therapy in the ICU and vigorous IV hydration is noted. PAST MEDICAL HISTORY: As mentioned above. History of allergic interstitial nephritis and currently on prednisone given a 40 mg once daily. History of nephrolithiasis on previous admission for acute renal failure, history of hypertension and dyslipidemia, history of plaque psoriasis, also history of MRSA, received antibiotics in the past, also history of low back pain secondary to lumbar disk disease. FAMILY HISTORY: Positive for hypertension and heart disease. SOCIAL HISTORY: The patient has supportive family. No known substance use. He lives alone and currently unemployed. REVIEW OF SYSTEMS: As mentioned above. Admits to generalized body weakness with easy fatigability and tiredness and suboptimal energy level. Also admits to episodic dizziness and lightheadedness, worse on the day of admission with generalized body weakness and hypersomnolence. No chest pains, palpitations or PND. His oral intake is variable with nausea, dyspepsia and vague upper abdominal pain. Also admits to marked polyuria, nocturia and polydipsia and about a 5-pound or so weight loss. PHYSICAL EXAMINATION: GENERAL: Obese male in no apparent distress. VITAL SIGNS: Blood pressure of 140/90, pulse of 70 beats per minute and regular, temperature 99, and respirations 20, height is 6 feet 3 inches, and weight is 302 pounds. HEENT: Head is normocephalic. Eyes; anicteric with pink conjunctivae. Fundoscopy is not possible at this time. Ears, nose and throat otherwise normal. NECK: Supple. Thyroid gland is normal in size. No carotid bruits or cervical adenopathy. HEART: Adynamic precordium. S1 and S2 is rapid and regular. LUNGS: Clear to auscultation. ABDOMEN: Obese and soft with positive bowel sounds. EXTREMITIES: No peripheral edema. Pulses are +2 bilaterally. LABORATORY DATA: Initial chemistry showed a BUN of 26, sodium 127, potassium 5.5, chloride 85, CO2 of 18, glucose 1270 and creatinine is 1.6. The glucose levels have all been over 400 mg/dL. The latest chemistry today showed a CO2 of 13 and glucose levels have ranged from 354 to 422 mg/dL. His hemoglobin A1c is 11%. ASSESSMENT: This is a 36-year-old male with uncontrolled and decompensated type 1 insulin-dependent diabetes presenting here with hyperosmolar hyperglycemic state and dehydration with mild ketosis, now being referred for diabetic evaluation and management. There is also underlying morbid obesity and increased insulin resistance thereof. PLAN: Plan of management was discussed. We will start him right away on a more physiologic basal and bolus insulin regimen as ordered. We will start him with Levemir given 40 units subcu at bedtime daily to start tonight. We will also add Humalog given 20 units subcu t.i.d. before meals to start at dinner time today as ordered. We will modify the coverage scale to megan hypoglycemia and detailed orders have been given. We will initiate dietary education to include insulin self-administration. We will also consult dietary for additional counseling and weight loss efforts. We will follow. Radhika Olsen MD
[2017-01-24 07:26] LABS: MEAN CELL VOLUME 82.3 fl (80.0-105.0); MEAN CORPUSCULAR HGB CONC 35.3 g/dl (31.0-37.0); MEAN PLATELET VOLUME 10.3 fl (7.0-11.0); RED CELL DISTRIBUTION WIDTH 11.6 % (11.5-14.5)
[2017-01-24 07:38] LABS: ALB/GLOB RATIO 1.2 (1.1-1.8); ALKALINE PHOSPHATASE 97 U/L (38-133); ALT/SGPT 65 U/L (7-56); AST/SGOT 60 U/L (15-59); BILIRUBIN,TOTAL 0.9 mg/dL (0.2-1.3); BLOOD UREA NITROGEN 21 mg/dL (7-21); CALCIUM 9.1 mg/dL (8.4-10.5); CARBON DIOXIDE 30 mmol/L (21-33); CHLORIDE 102 mmol/L (98-107); GFR AFRICAN-AMERICAN > 60; GLUCOSE,RANDOM 193 mg/dL (70-110); POTASSIUM 4.1 mmol/L (3.6-5.0); SODIUM 141 mmol/L (132-148); TOTAL PROTEIN 6.5 g/dL (5.8-8.3)
[2017-01-24] MEDS: Insulin Lispro 1 UNITS/0.01 ML SC SCH ×3 (08:11→17:04)
[2017-01-24] MEDS: Insulin Lispro (humaLOG) LOW Coverage SC SCH ×4 (08:12→23:43)
[2017-01-24] MEDS: Nystatin 100,000 Units/ml Oral Susp 5 ml UD PO SCH ×4 (11:06→22:07)
--- NOTE | 2017-01-24 14:49 | CP.PCM.CON ---
History of Present Illness - History of Present Illness History of Present Illness: 36 year old male with PMH of chronic back pain, DM, obesity with BMI 36, history of acute interstitial nephritis (probably from NSAIDs) came in complaining of polyuria, polydipsia, nausea and generalized weakness. He is being treated hyperosmolar, hyperglycemic state. Urine cx taken on admission are showing group B strep. Patient is not complaining of dysuria, although still has some polyuria. He denies fever or chills, no headache or dizziness, no chest pain, no SOB, no abdominal pain, no diarrhea. Infectious Diseases consult is requested to further evaluate and manage. Review of Systems - Review of Systems All systems: reviewed and no additional remarkable complaints except (as per HPI ) Past Patient History - Infectious Disease Hx of Infectious Diseases: None - Tetanus Immunizations Tetanus Immunization: >10 years Ago - Past Social History Smoking Status: Former Smoker - CARDIAC Hx Cardiac Disorders: No - PULMONARY Hx Respiratory Disorders: No - NEUROLOGICAL Hx Neurological Disorder: No - HEENT Hx HEENT Problems: Yes (eyeglasses) - RENAL Hx Chronic Kidney Disease: No - ENDOCRINE/METABOLIC Hx Endocrine Disorders: No - HEMATOLOGICAL/ONCOLOGICAL Hx Blood Disorders: No - INTEGUMENTARY Hx Dermatological Problems: Yes (Psoriasis (Left Forearm and Scrotum)) Hx Psoriasis: Yes Other/Comment: psoriasis scalp, face, arms legs abd eyebrows testicles chest multiple dry patches of skin, pt suffered 2nd and 3rd degree nam to right hand 2 or 3 yrs ago while cooking, 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 - MUSCULOSKELETAL/RHEUMATOLOGICAL Hx Falls: No - GASTROINTESTINAL Hx Gastrointestinal Disorders: Yes (obesse) - GENITOURINARY/GYNECOLOGICAL Hx Genitourinary Disorders: No - PSYCHIATRIC Hx Psychophysiologic Disorder: No Hx Substance Use: No - SURGICAL HISTORY Other/Comment: 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 - ANESTHESIA Hx Anesthesia: No Meds Home Medications: Home Medication List Medication Instructions Recorded Confirmed Type Amoxicillin [Amoxil 500 mg Cap] 500 mg PO Q8 #21 cap 01/24/17 Rx amLODIPine [Norvasc] 10 mg PO DAILY #30 tab 01/24/17 Rx Allergies/Adverse Reactions: Allergies Allergy/AdvReac Type Severity Reaction Status Date / Time sun Allergy SWELLING Uncoded 01/09/17 22:53 - Medications Medications: Current Medications Amlodipine Besylate (Norvasc) 10 mg PO DAILY [facility] Last Admin: 01/24/17 11:06 Dose: 10 mg Amoxicillin (Amoxil 500 Mg Cap) 500 mg PO Q8 [facility] PRN Reason: Protocol Al Hydrox/Mg Hydrox/Simethicone 30 ml/Diphenhydramine HCl 75 mg/Lidocaine 30 ml 0 ml PO Q2H PRN PRN Reason: Mouth/Throat Pain Last Admin: 01/22/17 13:33 Dose: 1 ml Cyclobenzaprine HCl (Flexeril) 10 mg PO Q8 PRN PRN Reason: Pain, Mild (1-3) Last Admin: 01/23/17 21:38 Dose: 10 mg Insulin Detemir (Levemir) 40 unit SC HS [facility] Last Admin: 01/23/17 21:37 Dose: 40 unit Insulin Human Lispro (Humalog Low) 0 units SC ACHS [facility] PRN Reason: Protocol Last Admin: 01/24/17 08:12 Dose: 1 units Insulin Human Lispro (Humalog) 20 units SC AC [facility] Last Admin: 01/24/17 08:11 Dose: 20 units Metoprolol Tartrate (Lopressor) 12.5 mg PO BID [facility] Last Admin: 01/24/17 11:12 Dose: 12.5 mg Nystatin (Mycostatin Cream) 1 ea TOP TID [facility] Last Admin: 01/23/17 17:10 Dose: 1 applic Nystatin (Nystatin Oral Susp) 5 ml PO QID [facility] Last Admin: 01/24/17 11:06 Dose: 5 ml Ondansetron HCl (Zofran Inj) 4 mg IVP Q4H PRN PRN Reason: Nausea/Vomiting Last Admin: 01/22/17 02:00 Dose: 4 mg Pantoprazole Sodium (Protonix Inj) 40 mg IVP DAILY [facility] Last Admin: 01/24/17 11:13 Dose: 40 mg Physical Exam - Constitutional Appears: Non-toxic, No Acute Distress - Head Exam Head Exam: NORMAL INSPECTION - ENT Exam ENT Exam: Mucous Membranes Moist - Neck Exam Neck exam: Negative for: Lymphadenopathy, Meningismus - Respiratory Exam Respiratory Exam: Decreased Breath Sounds - Cardiovascular Exam Cardiovascular Exam: +S1, +S2 - GI/Abdominal Exam GI & Abdominal Exam: Soft. absent: Tenderness Results - Vital Signs Recent Vital Signs: Last Vital Signs Temp 98.4 F 01/24/17 07:00 Pulse 90 01/24/17 07:00 Resp 20 08/31/17 07:00 BP 124/77 01/24/17 11:06 Pulse Ox 95 01/24/17 07:00 - Labs Result Diagrams: 01/24/17 07:00 01/24/17 07:00 Labs: Laboratory Results - last 24 hr 01/22/17 01/23/17 01/23/17 05:00 11:28 17:01 WBC RBC Hgb Hct MCV MCH MCHC RDW Plt Count MPV Sodium Potassium Chloride Carbon Dioxide Anion Gap BUN Creatinine Est GFR ( Amer) Est GFR (Non-Af Amer) POC Glucose (mg/dL) 393 H 306 H Random Glucose Calcium Total Bilirubin AST ALT Alkaline Phosphatase Total Protein Albumin Globulin Albumin/Globulin Ratio Urine Opiates Screen Urine Methadone Screen Ur Barbiturates Screen Ur Phencyclidine Scrn Ur Amphetamines Screen U Benzodiazepines Scrn U Oth Cocaine Metabols U Cannabinoids Screen HIV 1&2 Ag/Ab, 4th Gen Nonreactive 01/23/17 01/24/17 01/24/17 21:22 01:30 07:00 WBC RBC Hgb Hct MCV MCH MCHC RDW Plt Count MPV Sodium 141 Potassium 4.1 Chloride 102 Carbon Dioxide 30 Anion Gap 13 BUN 21 Creatinine 1.4 Est GFR ( Amer) > 60 Est GFR (Non-Af Amer) 58 POC Glucose (mg/dL) 254 H Random Glucose 193 H Calcium 9.1 Total Bilirubin 0.9 AST 60 H ALT 65 H Alkaline Phosphatase 97 Total Protein 6.5 Albumin 3.5 Globulin 2.9 Albumin/Globulin Ratio 1.2 Urine Opiates Screen Negative Urine Methadone Screen Negative Ur Barbiturates Screen Negative Ur Phencyclidine Scrn Negative Ur Amphetamines Screen Negative U Benzodiazepines Scrn Negative U Oth Cocaine Metabols Negative U Cannabinoids Screen Negative HIV 1&2 Ag/Ab, 4th Gen 01/24/17 01/24/17 01/24/17 07:00 07:22 11:25 WBC 7.0 D RBC 4.62 Hgb 13.4 L Hct 38.0 L MCV 82.3 MCH 29.0 MCHC 35.3 RDW 11.6 Plt Count 150 MPV 10.3 Sodium Potassium Chloride Carbon Dioxide Anion Gap BUN Creatinine Est GFR ( Amer) Est GFR (Non-Af Amer) POC Glucose (mg/dL) 176 H 206 H Random Glucose Calcium Total Bilirubin AST ALT Alkaline Phosphatase Total Protein Albumin Globulin Albumin/Globulin Ratio Urine Opiates Screen Urine Methadone Screen Ur Barbiturates Screen Ur Phencyclidine Scrn Ur Amphetamines Screen U Benzodiazepines Scrn U Oth Cocaine Metabols U Cannabinoids Screen HIV 1&2 Ag/Ab, 4th Gen Assessment & Plan - Assessment and Plan (Free Text) Plan: Assessment R/O urinary tract infection with Group B Strep S/P hyperosmolar, hyperglycemic state in this patient with Diabetes Mellitus chronic back pain DM obesity with BMI 36 history of acute interstitial nephritis (probably from NSAIDs) history of kidney stones Plan Started patient on Amoxicillin; check PSA levels; CT scan of the abdomen and pelvis did not show hydronephrosis will monitor clinically
--- NOTE | 2017-01-24 15:33 | CP.PCM.PN ---
<AngeldavidRajeevsaul - Last Filed: 01/24/17 15:30> Subjective - Date & Time of Evaluation Date of Evaluation: 01/24/17 Time of Evaluation: 13:00 - Subjective Subjective: Patient has been seen and examined. States that he felt slightly dizzy and had abdominal pain overnight but it has resolved. Still complains of blurry vision. Currently denies dizziness, headache, chest pain, palpitations, abdominal pain, dysuria, SOB, N/V/D/, constipation. Does complain of urinary frequency. Objective - Vital Signs/Intake and Output Vital Signs (last 24 hours): Temp Pulse Resp BP Pulse Ox 98.4 F 87 20 116/76 97 01/24/17 07:00 01/24/17 13:20 01/24/17 13:20 01/24/17 13:20 01/24/17 13:20 Intake and Output: 01/24/17 01/24/17 06:59 18:59 Intake Total 900 600 Output Total 200 2 Balance 700 598 - Medications Medications: Current Medications Amlodipine Besylate (Norvasc) 10 mg PO DAILY [facility] Last Admin: 01/24/17 11:06 Dose: 10 mg Amoxicillin (Amoxil 500 Mg Cap) 500 mg PO Q8 [facility] PRN Reason: Protocol Last Admin: 01/24/17 15:07 Dose: 500 mg Al Hydrox/Mg Hydrox/Simethicone 30 ml/Diphenhydramine HCl 75 mg/Lidocaine 30 ml 0 ml PO Q2H PRN PRN Reason: Mouth/Throat Pain Last Admin: 01/22/17 13:33 Dose: 1 ml Cyclobenzaprine HCl (Flexeril) 10 mg PO Q8 PRN PRN Reason: Pain, Mild (1-3) Last Admin: 01/23/17 21:38 Dose: 10 mg Insulin Detemir (Levemir) 40 unit SC HS [facility] Last Admin: 01/23/17 21:37 Dose: 40 unit Insulin Human Lispro (Humalog Low) 0 units SC ACHS [facility] PRN Reason: Protocol Last Admin: 01/24/17 12:15 Dose: 2 units Insulin Human Lispro (Humalog) 20 units SC AC [facility] Last Admin: 01/24/17 12:19 Dose: 20 units Metoprolol Tartrate (Lopressor) 12.5 mg PO BID [facility] Last Admin: 01/24/17 11:12 Dose: 12.5 mg Nystatin (Mycostatin Cream) 1 ea TOP TID [facility] Last Admin: 01/23/17 17:10 Dose: 1 applic Nystatin (Nystatin Oral Susp) 5 ml PO QID [facility] Last Admin: 01/24/17 15:08 Dose: 5 ml Ondansetron HCl (Zofran Inj) 4 mg IVP Q4H PRN PRN Reason: Nausea/Vomiting Last Admin: 01/22/17 02:00 Dose: 4 mg Pantoprazole Sodium (Protonix Inj) 40 mg IVP DAILY [facility] Last Admin: 01/24/17 11:13 Dose: 40 mg - Labs Labs: 01/24/17 07:00 01/24/17 07:00 PT 11.1 Seconds (9.9-11.8) 01/21/17 20:10 INR 1.03 (0.93-1.08) 01/21/17 20:10 APTT 24.9 Seconds (23.7-30.8) 01/21/17 20:10 - Constitutional Appears: Well, Non-toxic, No Acute Distress - Head Exam Head Exam: ATRAUMATIC, NORMAL INSPECTION, NORMOCEPHALIC - Eye Exam Eye Exam: EOMI, Normal appearance - ENT Exam ENT Exam: Mucous Membranes Moist - Respiratory Exam Respiratory Exam: Clear to Ausculation Bilateral, Rales, Rhonchi, Wheezes - Cardiovascular Exam Cardiovascular Exam: RRR, +S1, +S2. absent: JVD - GI/Abdominal Exam GI & Abdominal Exam: Soft, Normal Bowel Sounds. absent: Distended, Firm, Tenderness - Rectal Exam Rectal Exam: NORMAL INSPECTION - Exam Additional comments: erythema on penile gland (improving) - Extremities Exam Extremities Exam: absent: Pedal Edema - Psychiatric Exam Psychiatric exam: Normal Affect, Normal Mood Assessment and Plan - Assessment and Plan (Free Text) Assessment: 36M with PMH allergic interstitial nephritis, psoriasis, renal stones, admitted for hyperglycemia, found to be in anion gap metabolic acidosis/respiratory acidosis, in HHS. Diagnosed with Diabetes during this stay. HgbA1c of 11. Electrolyte abnormalities have been corrected and anion gap is now closed. Plan: 1. Hyperglycemia 2/2 likely HHS, less likely DKA (stable): - HgbA1c of 11. Newly diagnosed diabetes. Blood sugars today between 171 and 405 -Pseuodohyponatremia and hyperkalemia have been corrected. Anion gap is closed. Patient awaiting transfer to medical floor from ICU. 2. DM II (new) -HgbA1c of 11. Random glucose today of 304 -Endo Consulted (Dr. Olsen). Recs appreciated -Levemir 40 HS, Novolog 20 with meals per Endo. Will go home with that regiment. -Diabetic Education 3. Renal insufficiency 2/2 NSAID induced allergic interstitial nephritis: - per Nephro was on Prednisone <3 weeks ago so no need to taper. D/C prednisone because risk outweigh benefits due to hyperglycemic state per nephro -Nephro consulted. Recs appreciated. 4. UTI - pt afebrile. No Leukocytosis today and normal HR. Procal WNL @ 0.3 - Blood cultures neg for 48 hrs, Urine cultures grew Beta Hemolytic Strep. -Amoxicillin 500 Q8 -ID consulted (Jasmin) recs appreciated 5. Penile erythema (improving): - Nystatin powder - Hx of MRSA infxn/drainage at the scrotal area few years ago 6. Oral thrush: - 2/2 likely steroid use, HIV 1&2, Ag/Ab Nonreactive. - Nystatin swish and swallow. GI Proph Protonix Dispo: Patient currently on medical floor. We will plan for discharge tomorrow. Patient seen, discussed, and reviewed with Attending. Derrick Corado PGY1 <Ravindra Worley - Last Filed: 01/24/17 16:31> Objective - Vital Signs/Intake and Output Vital Signs (last 24 hours): Temp Pulse Resp BP Pulse Ox 98.1 F 85 20 125/87 94 L 01/24/17 16:25 01/24/17 16:25 01/24/17 16:25 01/24/17 16:25 01/24/17 16:25 Intake and Output: 01/24/17 01/24/17 06:59 18:59 Intake Total 900 600 Output Total 200 2 Balance 700 598 - Medications Medications: Current Medications Amlodipine Besylate (Norvasc) 10 mg PO DAILY [facility] Last Admin: 01/24/17 11:06 Dose: 10 mg Amoxicillin (Amoxil 500 Mg Cap) 500 mg PO Q8 [facility] PRN Reason: Protocol Last Admin: 01/24/17 15:07 Dose: 500 mg Al Hydrox/Mg Hydrox/Simethicone 30 ml/Diphenhydramine HCl 75 mg/Lidocaine 30 ml 0 ml PO Q2H PRN PRN Reason: Mouth/Throat Pain Last Admin: 01/22/17 13:33 Dose: 1 ml Cyclobenzaprine HCl (Flexeril) 10 mg PO Q8 PRN PRN Reason: Pain, Mild (1-3) Last Admin: 01/23/17 21:38 Dose: 10 mg Insulin Detemir (Levemir) 40 unit SC HS [facility] Last Admin: 01/23/17 21:37 Dose: 40 unit Insulin Human Lispro (Humalog Low) 0 units SC ACHS [facility] PRN Reason: Protocol Last Admin: 01/24/17 12:15 Dose: 2 units Insulin Human Lispro (Humalog) 20 units SC AC [facility] Last Admin: 01/24/17 12:19 Dose: 20 units Metoprolol Tartrate (Lopressor) 12.5 mg PO BID [facility] Last Admin: 01/24/17 11:12 Dose: 12.5 mg Nystatin (Mycostatin Cream) 1 ea TOP TID [facility] Last Admin: 01/23/17 17:10 Dose: 1 applic Nystatin (Nystatin Oral Susp) 5 ml PO QID [facility] Last Admin: 01/24/17 15:08 Dose: 5 ml Ondansetron HCl (Zofran Inj) 4 mg IVP Q4H PRN PRN Reason: Nausea/Vomiting Last Admin: 01/22/17 02:00 Dose: 4 mg Pantoprazole Sodium (Protonix Inj) 40 mg IVP DAILY [facility] Last Admin: 01/24/17 11:13 Dose: 40 mg - Labs Labs: 01/24/17 07:00 01/24/17 07:00 PT 11.1 Seconds (9.9-11.8) 01/21/17 20:10 INR 1.03 (0.93-1.08) 01/21/17 20:10 APTT 24.9 Seconds (23.7-30.8) 01/21/17 20:10 Attending/Attestation - Attestation I have personally seen and examined this patient.: Yes I have fully participated in the care of the patient.: Yes I have reviewed all pertinent clinical information, including history, physical exam and plan: Yes Notes (Text): 01/24/17 16:26 attending note; Patient seen and examined with resident. 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 patient was admitted to ICU and treated with aggressive IV hydration and insulin drip. Currently on Levemir and NovoLog. Diabetic nurse education provided. Dietary education given. endocrinology evaluation appreciated., Patient renal functions are normal. Prednisone discontinued. Patient D dimer was high but V/Q scan is low probability. possible discharge home tomorrow. Patient Will be referred to [facility] clinic.
[2017-01-24] MEDS: Nystatin 100,000 Units/gm Cream(15 gm) TOP SCH ×3 (19:04→19:06)
[2017-01-24] MEDS: Insulin Detemir 100 units/ml Vial (Levemir) SC SCH (22:07)
--- NOTE | 2017-01-24 22:59 | PN ---
LOCATION: Room 564. SUBJECTIVE: This is a 36-year-old male with recent uncontrolled type 1 insulin dependent diabetes, presenting here with extremes of glycemic fluctuations and currently being followed closely for metabolic management. His glycemic levels are fluctuating as noted and today's glucose values have ranged from 190 to 206 and 176 mg/dL. LABORATORY DATA: His latest chemistry showed a BUN of 21, sodium 141, potassium 4.1, chloride 102, CO2 30, glucose 190, creatinine 1.4. PLAN: So, at this time, we will continue the same basal and bolus insulin regimen to allow for dose equilibration and keep him on the Levemir given as 40 units subcu at bedtime daily as given. We will also continue the Humalog given as 20 units subcu t.i.d. before meals as ordered. We will titrate incrementally as indicated to optimize metabolic control. We will sign off from the endocrine care at this time and would recommend the same combination regimen as given for now to allow for dose equilibration. We will obtain serial chemistries and supplement accordingly as needed. Radhika Olsen MD
[2017-01-25 05:54] LABS: HEMATOCRIT 39.3 % (42.0-52.0); MEAN CELL VOLUME 81.4 fl (80.0-105.0); MEAN CORPUSCULAR HEMOGLOBIN 29.2 pg (25.0-35.0); MEAN CORPUSCULAR HGB CONC 35.9 g/dl (31.0-37.0); MEAN PLATELET VOLUME 10.7 fl (7.0-11.0); RED CELL DISTRIBUTION WIDTH 11.6 % (11.5-14.5); WHITE BLOOD COUNT 7.5 10^3/ul (4.5-11.0)
[2017-01-25] MEDS ORDERED: Pantoprazole 40 mg EC Tab PO SCH (06:00)
[2017-01-25 08:15] VITALS: BP 129/95; PULSE 100; TEMP 98.4; O2SAT 99
[2017-01-25] MEDS: Insulin Lispro 1 UNITS/0.01 ML SC SCH ×2 (08:38→12:09)
[2017-01-25] MEDS: Insulin Lispro (humaLOG) LOW Coverage SC SCH ×2 (08:39→12:09)
[2017-01-25] MEDS: Nystatin 100,000 Units/ml Oral Susp 5 ml UD PO SCH (09:09)
[2017-01-25] MEDS: Nystatin 100,000 Units/gm Cream(15 gm) TOP SCH (09:10)
[2017-01-25 09:50] LABS: ALB/GLOB RATIO 1.2 (1.1-1.8); ALKALINE PHOSPHATASE 108 U/L (38-126); ALT/SGPT 86 U/L (7-56); AST/SGOT 56 U/L (17-59); BILIRUBIN,TOTAL 0.8 mg/dL (0.2-1.3); BLOOD UREA NITROGEN 20 mg/dL (7-21); CALCIUM 9.2 mg/dL (8.4-10.5); CARBON DIOXIDE 24 mmol/L (21-33); CHLORIDE 104 mmol/L (98-107); GFR AFRICAN-AMERICAN > 60; GLUCOSE,RANDOM 212 mg/dL (70-110); POTASSIUM 3.9 mmol/L (3.6-5.0); SODIUM 139 mmol/L (132-148); TOTAL PROTEIN 6.6 g/dL (5.8-8.3)
--- NOTE | 2017-01-25 13:25 | ENDO ---
ENDO FOLLOWUP NOTE DATE: 01/25/2017 LOCATION: Room 564 SUBJECTIVE: This is 36-year-old male with recent uncontrolled type I insulin dependent diabetes presenting here with diabetic ketoacidosis and dehydration and has since then improved clinically and metabolically as noted there off. His glycemic levels are fluctuating, but improved and the latest glucose levels have ranged from 190 to 208 and 223 mg/dL. The latest chemistries showed BUN of 20, sodium 139, potassium 3.9, chloride 104, CO2 24, glucose 212, and creatinine 1.2. So at this time, we will continue the same basal and bolus insulin regimen as ordered to allow for dose equilibration and keep him on the Humalog given as 20 units subcutaneously t.i.d. and Levemir given as 40 unit subcutaneously at bedtime daily as ordered. We will titrate incremental as indicated to optimize metabolic control. We will follow and advise accordingly. Radhika Olsen MD
--- NOTE | 2017-01-25 15:07 | PN ---
DATE: 01/25/2017 SUBJECTIVE: The patient is in bed, in no acute distress who was seen early this morning. PHYSICAL EXAMINATION VITAL SIGNS: Temperature is 98, blood pressure is 120/90, and respiratory rate of 18. HEENT: Examination of HEENT is unremarkable. NECK: Supple. LUNGS: Decreased breath sounds. HEART: Normal S1 and S2. ABDOMEN: Soft. LABORATORY DATA: Examination reveals a white count of 7.5 and hemoglobin of 14. Chemistry reveals a BUN of and creatinine of 1.4. Urinalysis is noted and HIV is negative. Microbiology reveals a group B strep beta hemolytic strep in the urine culture. The blood cultures are negative. MEDICATIONS: The patient's review of medication reveals the patient to be on p.o. ampicillin. ASSESSMENT AND PLAN: This is a 36-year-old male with chronic back pain, diabetes, obesity with body mass index of 36, and history of an interstitial nephritis secondary to nonsteroidal who was admitted with a group B streptococcus urinary tract infection and currently on amoxicillin and we will check on the PSA level and complete amoxicillin therapy. With a normal PSA level, should still have a urology evaluation. Etiology of the positive urine culture in a male. Glen Morrow MD
--- NOTE | 2017-01-25 15:43 | CP.PCM.DIS ---
<Derrick Corado - Last Filed: 01/25/17 16:39> Provider - Provider Date of Admission: 01/21/17 21:20 Attending physician: Ravindra Worley MD Consults: Nephro-Dr. Carmichael Time Spent in preparation of Discharge (in minutes): 40 Hospital Course - Lab Results Lab Results: Micro Results 01/22/17 03:30 Blood-Venous Blood Culture - Preliminary NO GROWTH AFTER 3 DAYS 01/22/17 03:10 Blood-Venous Blood Culture - Preliminary NO GROWTH AFTER 3 DAYS 01/22/17 06:00 Urine,Clean Catch Urine Culture - Final Beta Hemolytic Strep Group B 01/22/17 06:00 Nose MRSA Culture (Admit) - Final MRSA NOT DETECTED Most Recent Lab Values WBC 7.5 10^3/ul (4.5-11.0) 01/25/17 05:30 RBC 4.83 10^6/uL (3.5-6.1) 01/25/17 05:30 Hgb 14.1 g/dL (14.0-18.0) 01/25/17 05:30 Hct 39.3 % (42.0-52.0) L 01/25/17 05:30 MCV 81.4 fl (80.0-105.0) 01/25/17 05:30 MCH 29.2 pg (25.0-35.0) 01/25/17 05:30 MCHC 35.9 g/dl (31.0-37.0) 01/25/17 05:30 RDW 11.6 % (11.5-14.5) 01/25/17 05:30 Plt Count 143 10^3/uL (120.0-450.0) 01/25/17 05:30 MPV 10.7 fl (7.0-11.0) 01/25/17 05:30 Gran % 74.1 % (50.0-68.0) H 01/22/17 11:10 Lymph % (Auto) 16.4 % (22.0-35.0) L 01/22/17 11:10 Carver % (Auto) 7.4 % (1.0-6.0) H 01/22/17 11:10 Eos % (Auto) 1.8 % (1.5-5.0) 01/22/17 11:10 Baso % (Auto) 0.3 % (0.0-3.0) 01/22/17 11:10 Gran # 7.54 (1.4-6.5) H 01/22/17 11:10 Lymph # 1.7 (1.2-3.4) 01/22/17 11:10 Carver # 0.8 (0.1-0.6) H 01/22/17 11:10 Eos # 0.2 (0.0-0.7) 01/22/17 11:10 Baso # 0.03 K/mm3 (0.0-2.0) 01/22/17 11:10 PT 11.1 Seconds (9.9-11.8) 01/21/17 20:10 INR 1.03 (0.93-1.08) 01/21/17 20:10 APTT 24.9 Seconds (23.7-30.8) 01/21/17 20:10 D-Dimer, Quantitative 0.61 mg/L FEU (0-0.50) H 01/21/17 20:10 pO2 43 mm/Hg (30-55) 01/22/17 08:30 VBG pH 7.32 (7.32-7.43) 01/22/17 08:30 VBG pCO2 60.0 (40-60) 01/22/17 08:30 VBG HCO3 30.9 mmol/l (21-28) H 01/22/17 08:30 VBG Total CO2 32.7 mmol.L (22-28) H 01/22/17 08:30 VBG O2 Sat (Calc) 83.1 % (40-65) H 01/22/17 08:30 VBG Base Excess 3.2 mmol/L (0.0-2.0) H 01/22/17 08:30 VBG Potassium 4.1 mmol/L (3.6-5.2) 01/22/17 08:30 Sodium 145.0 mmol/L (132-148) 01/22/17 08:30 Chloride 109.0 mmol/L (98-107) H 01/22/17 08:30 Glucose 270 mg/dl (75-110) H 01/22/17 08:30 Lactate 1.3 mmol/L (0.7-2.1) 01/22/17 08:30 FiO2 21.0 % 01/22/17 08:30 Sodium 139 mmol/L (132-148) 01/25/17 08:30 Potassium 3.9 mmol/L (3.6-5.0) 01/25/17 08:30 Chloride 104 mmol/L (98-107) 01/25/17 08:30 Carbon Dioxide 24 mmol/L (21-33) 01/25/17 08:30 Anion Gap 15 (10-20) 01/25/17 08:30 BUN 20 mg/dL (7-21) 01/25/17 08:30 Creatinine 1.2 mg/dL (0.5-1.4) 01/25/17 08:30 Est GFR ( Amer) > 60 01/25/17 08:30 Est GFR (Non-Af Amer) > 60 01/25/17 08:30 POC Glucose (mg/dL) 257 mg/dL (65-110) H 01/25/17 11:24 Random Glucose 212 mg/dL (70-110) H 01/25/17 08:30 Hemoglobin A1c 11.0 % (4.2-6.5) H D 01/22/17 03:00 Lactic Acid 2.1 mmol/L (0.7-2.1) 01/23/17 06:20 Calcium 9.2 mg/dL (8.4-10.5) 01/25/17 08:30 Phosphorus 2.4 mg/dL (2.5-4.5) L 01/22/17 03:10 Magnesium 2.3 mg/dL (1.7-2.2) H 01/22/17 03:10 Total Bilirubin 0.8 mg/dL (0.2-1.3) 01/25/17 08:30 AST 56 U/L (17-59) 01/25/17 08:30 ALT 86 U/L (7-56) H 01/25/17 08:30 Alkaline Phosphatase 108 U/L (38-126) 01/25/17 08:30 Lactate Dehydrogenase 437 U/L (333-699) 01/21/17 20:10 Total Creatine Kinase 21 U/L (35-230) L 01/21/17 20:10 Troponin I < 0.01 ng/mL 01/21/17 20:10 NT-Pro-B Natriuret Pep 37.9 pg/mL (0-450) 01/21/17 20:10 Total Protein 6.6 g/dL (5.8-8.3) 01/25/17 08:30 Albumin 3.6 g/dL (3.0-4.8) 01/25/17 08:30 Globulin 3.0 gm/dL 01/25/17 08:30 Albumin/Globulin Ratio 1.2 (1.1-1.8) 01/25/17 08:30 Prostate Specific Ag 0.4 ng/mL (0.00-2.5) 01/24/17 11:36 Procalcitonin 0.30 NG/ML (0.19-0.49) 01/22/17 06:30 Venous Blood Potassium 4.1 mmol/L (3.6-5.2) 01/22/17 08:30 Urine Color Yellow (YELLOW) 01/22/17 12:30 Urine Appearance Clear (CLEAR) 01/22/17 12:30 Urine pH 5.5 (4.7-8.0) 01/22/17 12:30 Ur Specific [place] 1.010 (1.005-1.035) 01/22/17 12:30 Urine Protein Negative mg/dL (<30 mg/dL) 01/22/17 12:30 Urine Glucose (UA) >=1000 mg/dL (NEGATIVE) 01/22/17 12:30 Urine Ketones Negative mg/dL (NEGATIVE) 01/22/17 12:30 Urine Blood Trace-intact (NEGATIVE) H 01/22/17 12:30 Urine Nitrate Negative (NEGATIVE) 01/22/17 12:30 Urine Bilirubin Negative (NEGATIVE) 01/22/17 12:30 Urine Urobilinogen 0.2 E.U./dL (<1 E.U./dL) 01/22/17 12:30 Ur Leukocyte Esterase Trace Maegan/uL (NEGATIVE) H 01/22/17 12:30 Urine RBC 0 - 2 /hpf (0-2) 01/22/17 12:30 Urine WBC 2 - 5 /hpf (0-6) 01/22/17 12:30 Ur Epithelial Cells 1 - 3 /hpf (0-5) 01/22/17 05:35 Urine Other [place] 01/22/17 05:35 Urine Opiates Screen Negative (NEGATIVE) 01/24/17 01:30 Urine Methadone Screen Negative (NEGATIVE) 01/24/17 01:30 Ur Barbiturates Screen Negative (NEGATIVE) 01/24/17 01:30 Ur Phencyclidine Scrn Negative (NEGATIVE) 01/24/17 01:30 Ur Amphetamines Screen Negative (NEGATIVE) 01/24/17 01:30 U Benzodiazepines Scrn Negative (NEGATIVE) 01/24/17 01:30 U Oth Cocaine Metabols Negative (NEGATIVE) 01/24/17 01:30 U Cannabinoids Screen Negative (NEGATIVE) 01/24/17 01:30 HIV 1&2 Ag/Ab, 4th Gen Nonreactive (Nonreactive) 01/22/17 05:00 - Hospital Course Hospital Course: This is a 36 year old male who presented to [facility] with generalized weakness, polydipsia, polyuria, fatigue, decreased appetite, anorexia, mild confusion, and lower crampy abdominal pain that radiated to the back bilaterally. Patient was found to be hyperglycemic w/ a mixed metabolic/respiratory acidosis with a high anion gap. Nephro was consulted on the case. Patient was diagnosed with DKA vs HHS. HgbA1c was 11. He was diagnosed with diabetes during this hospital stay. D-dimer was elevated. V/Q scan was ordered and showed a low suspicion for PE. Relevant imaging study result shown below. Patient was treated with insulin and IV fluids. His acidosis was corrected and his anion gap was closed. Patient was previously on prednisone for his interstitial nephritis. Per nephro, risk outweighted benefits in patient hyperglycemic state so we did not continue it. Patient was also found to have penile erythema, treated with Nystatin powder, and oral thrush treated with Nystatin swish and swallow. HIV test was negative. Patient also complained of vision changes and was told to follow up with [facility]. He is to also follow up with flight deck officer between 1-2 weeks, follow up with [facility] in 1 week. Diabetic education was provided during stay. We will send patient home with Amoxocillin , Norvasc, and Insulin. He is to also follow up with Diabetic education nurse Irish Aguirre. Patient counseled to avoid NSAIDS and use warm compress of OTC topical treatments for his back pain. Patient was not put on low dose Pavan- I because his creatinine levels were just recently stablized. He should be put on a low-dose Pavan-I if Cr continues to be stable when he goes for his follow up appointment. Patient is agreeable to plan and medications. Patient discussed and reviewed with Attending. Derrick Corado PGY1 CXR- No Active Disease Echo Mildly dilated LA, Mild concentric LVH, Mildly reduced LV systolic function with inferoseptal hypokinesis, Mild MR and TR Abd/Pelvis CT No Acute Finding Discharge Exam - Head Exam Head Exam: ATRAUMATIC, NORMAL INSPECTION, NORMOCEPHALIC - Eye Exam Eye Exam: EOMI, Normal appearance - Respiratory Exam Respiratory Exam: Clear to PA & Lateral - Cardiovascular Exam Cardiovascular Exam: RRR, +S1, +S2. absent: JVD - GI/Abdominal Exam GI & Abdominal Exam: Normal Bowel Sounds, Soft. absent: Organomegaly, Tenderness - Exam External exam: NORMAL EXTERNAL EXAM - Extremities Exam Additional comments: No Pedal edema - Back Exam Back exam: absent: CVA tenderness (L), CVA tenderness (R) - Neurological Exam Neurological exam: Alert, Oriented x3 - Psychiatric Exam Psychiatric exam: Normal Affect, Normal Mood - Skin Skin Exam: Dry, Intact, Normal Color, Warm Discharge Plan - Discharge Medications Prescriptions: amLODIPine [Norvasc] 10 mg PO DAILY #30 tab Amoxicillin [Amoxil 500 mg Cap] 500 mg PO Q8 #21 cap Insulin Detemir [Levemir] 40 unit SC HS #30 unit Insulin Lispro [humALOG] 20 units SC AC #90 ml - Follow Up Plan Condition: STABLE Disposition: HOME/ ROUTINE Instructions: Diabetic Ketoacidosis (DC), Back Pain (GEN) Additional Instructions: Discharge instructions: - Follow up with flight deck officer in 1-2 weeks - follow up with [facility] within 1 week. Will repeat blood work outpatient. - Take Amoxocillin every 8 hours for 2 days. - Take Norvasc 10mg once daily. - Take Insulin as directed. follow up with Diabetic education nurse Irish reese. Avoid NSAIDS. Referrals: Elliott Carmichael MD [Staff Provider] - <Ravindra Worley - Last Filed: 01/25/17 17:27> Provider - Provider Date of Admission: 01/21/17 21:20 Attending physician: Ravindra Worley MD Hospital Course - Lab Results Lab Results: Micro Results 01/22/17 03:30 Blood-Venous Blood Culture - Preliminary NO GROWTH AFTER 3 DAYS 01/22/17 03:10 Blood-Venous Blood Culture - Preliminary NO GROWTH AFTER 3 DAYS 01/22/17 06:00 Urine,Clean Catch Urine Culture - Final Beta Hemolytic Strep Group B 01/22/17 06:00 Nose MRSA Culture (Admit) - Final MRSA NOT DETECTED Most Recent Lab Values WBC 7.5 10^3/ul (4.5-11.0) 01/25/17 05:30 RBC 4.83 10^6/uL (3.5-6.1) 01/25/17 05:30 Hgb 14.1 g/dL (14.0-18.0) 01/25/17 05:30 Hct 39.3 % (42.0-52.0) L 01/25/17 05:30 MCV 81.4 fl (80.0-105.0) 01/25/17 05:30 MCH 29.2 pg (25.0-35.0) 01/25/17 05:30 MCHC 35.9 g/dl (31.0-37.0) 01/25/17 05:30 RDW 11.6 % (11.5-14.5) 01/25/17 05:30 Plt Count 143 10^3/uL (120.0-450.0) 01/25/17 05:30 MPV 10.7 fl (7.0-11.0) 01/25/17 05:30 Gran % 74.1 % (50.0-68.0) H 01/22/17 11:10 Lymph % (Auto) 16.4 % (22.0-35.0) L 01/22/17 11:10 Carver % (Auto) 7.4 % (1.0-6.0) H 01/22/17 11:10 Eos % (Auto) 1.8 % (1.5-5.0) 01/22/17 11:10 Baso % (Auto) 0.3 % (0.0-3.0) 01/22/17 11:10 Gran # 7.54 (1.4-6.5) H 01/22/17 11:10 Lymph # 1.7 (1.2-3.4) 01/22/17 11:10 Carver # 0.8 (0.1-0.6) H 01/22/17 11:10 Eos # 0.2 (0.0-0.7) 01/22/17 11:10 Baso # 0.03 K/mm3 (0.0-2.0) 01/22/17 11:10 PT 11.1 Seconds (9.9-11.8) 01/21/17 20:10 INR 1.03 (0.93-1.08) 01/21/17 20:10 APTT 24.9 Seconds (23.7-30.8) 01/21/17 20:10 D-Dimer, Quantitative 0.61 mg/L FEU (0-0.50) H 01/21/17 20:10 pO2 43 mm/Hg (30-55) 01/22/17 08:30 VBG pH 7.32 (7.32-7.43) 01/22/17 08:30 VBG pCO2 60.0 (40-60) 01/22/17 08:30 VBG HCO3 30.9 mmol/l (21-28) H 01/22/17 08:30 VBG Total CO2 32.7 mmol.L (22-28) H 01/22/17 08:30 VBG O2 Sat (Calc) 83.1 % (40-65) H 01/22/17 08:30 VBG Base Excess 3.2 mmol/L (0.0-2.0) H 01/22/17 08:30 VBG Potassium 4.1 mmol/L (3.6-5.2) 01/22/17 08:30 Sodium 145.0 mmol/L (132-148) 01/22/17 08:30 Chloride 109.0 mmol/L (98-107) H 01/22/17 08:30 Glucose 270 mg/dl (75-110) H 01/22/17 08:30 Lactate 1.3 mmol/L (0.7-2.1) 01/22/17 08:30 FiO2 21.0 % 01/22/17 08:30 Sodium 139 mmol/L (132-148) 01/25/17 08:30 Potassium 3.9 mmol/L (3.6-5.0) 01/25/17 08:30 Chloride 104 mmol/L (98-107) 01/25/17 08:30 Carbon Dioxide 24 mmol/L (21-33) 01/25/17 08:30 Anion Gap 15 (10-20) 01/25/17 08:30 BUN 20 mg/dL (7-21) 01/25/17 08:30 Creatinine 1.2 mg/dL (0.5-1.4) 01/25/17 08:30 Est GFR ( Amer) > 60 01/25/17 08:30 Est GFR (Non-Af Amer) > 60 01/25/17 08:30 POC Glucose (mg/dL) 257 mg/dL (65-110) H 01/25/17 11:24 Random Glucose 212 mg/dL (70-110) H 01/25/17 08:30 Hemoglobin A1c 11.0 % (4.2-6.5) H D 01/22/17 03:00 Lactic Acid 2.1 mmol/L (0.7-2.1) 01/23/17 06:20 Calcium 9.2 mg/dL (8.4-10.5) 01/25/17 08:30 Phosphorus 2.4 mg/dL (2.5-4.5) L 01/22/17 03:10 Magnesium 2.3 mg/dL (1.7-2.2) H 01/22/17 03:10 Total Bilirubin 0.8 mg/dL (0.2-1.3) 01/25/17 08:30 AST 56 U/L (17-59) 01/25/17 08:30 ALT 86 U/L (7-56) H 01/25/17 08:30 Alkaline Phosphatase 108 U/L (38-126) 01/25/17 08:30 Lactate Dehydrogenase 437 U/L (333-699) 01/21/17 20:10 Total Creatine Kinase 21 U/L (35-230) L 01/21/17 20:10 Troponin I < 0.01 ng/mL 01/21/17 20:10 NT-Pro-B Natriuret Pep 37.9 pg/mL (0-450) 01/21/17 20:10 Total Protein 6.6 g/dL (5.8-8.3) 01/25/17 08:30 Albumin 3.6 g/dL (3.0-4.8) 01/25/17 08:30 Globulin 3.0 gm/dL 01/25/17 08:30 Albumin/Globulin Ratio 1.2 (1.1-1.8) 01/25/17 08:30 Prostate Specific Ag 0.4 ng/mL (0.00-2.5) 01/24/17 11:36 Procalcitonin 0.30 NG/ML (0.19-0.49) 01/22/17 06:30 Venous Blood Potassium 4.1 mmol/L (3.6-5.2) 01/22/17 08:30 Urine Color Yellow (YELLOW) 01/22/17 12:30 Urine Appearance Clear (CLEAR) 01/22/17 12:30 Urine pH 5.5 (4.7-8.0) 01/22/17 12:30 Ur Specific [place] 1.010 (1.005-1.035) 01/22/17 12:30 Urine Protein Negative mg/dL (<30 mg/dL) 01/22/17 12:30 Urine Glucose (UA) >=1000 mg/dL (NEGATIVE) 01/22/17 12:30 Urine Ketones Negative mg/dL (NEGATIVE) 01/22/17 12:30 Urine Blood Trace-intact (NEGATIVE) H 01/22/17 12:30 Urine Nitrate Negative (NEGATIVE) 01/22/17 12:30 Urine Bilirubin Negative (NEGATIVE) 01/22/17 12:30 Urine Urobilinogen 0.2 E.U./dL (<1 E.U./dL) 01/22/17 12:30 Ur Leukocyte Esterase Trace Maegan/uL (NEGATIVE) H 01/22/17 12:30 Urine RBC 0 - 2 /hpf (0-2) 01/22/17 12:30 Urine WBC 2 - 5 /hpf (0-6) 01/22/17 12:30 Ur Epithelial Cells 1 - 3 /hpf (0-5) 01/22/17 05:35 Urine Other [place] 01/22/17 05:35 Urine Opiates Screen Negative (NEGATIVE) 01/24/17 01:30 Urine Methadone Screen Negative (NEGATIVE) 01/24/17 01:30 Ur Barbiturates Screen Negative (NEGATIVE) 01/24/17 01:30 Ur Phencyclidine Scrn Negative (NEGATIVE) 01/24/17 01:30 Ur Amphetamines Screen Negative (NEGATIVE) 01/24/17 01:30 U Benzodiazepines Scrn Negative (NEGATIVE) 01/24/17 01:30 U Oth Cocaine Metabols Negative (NEGATIVE) 01/24/17 01:30 U Cannabinoids Screen Negative (NEGATIVE) 01/24/17 01:30 HIV 1&2 Ag/Ab, 4th Gen Nonreactive (Nonreactive) 01/22/17 05:00 Attending/Attestation - Attestation I have personally seen and examined this patient.: Yes I have fully participated in the care of the patient.: Yes I have reviewed all pertinent clinical information, including history, physical exam and plan: Yes Notes (Text): 01/25/17 17:21 attending note; Patient seen and examined with resident. 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 patient was admitted to ICU and treated with aggressive IV hydration and insulin drip. Currently on Levemir and NovoLog. Diabetic nurse education provided. Dietary education given. endocrinology evaluation appreciated. Insulin supplies given. Creatinine normalized. Prednisone discontinued. discharge home today. advised to complete [facility] paperwork. Patient Will be referred to [facility] clinic. diagnosis; Diabetes Obesity Acute kidney injury Hypertension Chronic back pain UTI 01/25/17 17:27
== END 2017-01-25 18:07 | disposition home or self-care (01) | DRG 638 ==
LOC: ED 19:39 → ERH 21:20 → CCU 23:55 → 5RNO 01-23 14:52
PROVIDERS: ADMIT Internal Medicine; ATTEND Internal Medicine
DX: E10.10 Type 1 diabetes mellitus with ketoacidosis without coma (principal); B37.0 Candidal stomatitis; N17.9 Acute kidney failure, unspecified; E87.0 Hyperosmolality and hypernatremia; E87.3 Alkalosis; E88.81 Metabolic syndrome and other insulin resistance; N12 Tubulo-interstitial nephritis, not specified as acute or chronic; N39.0 Urinary tract infection, site not specified; E66.01 Morbid (severe) obesity due to excess calories; E10.319 Type 1 diabetes mellitus with unspecified diabetic retinopathy without macular edema; E78.5 Hyperlipidemia, unspecified; E86.0 Dehydration; G89.29 Other chronic pain; I10 Essential (primary) hypertension; T39.395A Adverse effect of other nonsteroidal anti-inflammatory drugs [NSAID], initial encounter; Z68.36 Body mass index [BMI] 36.0-36.9, adult; Z79.52 Long term (current) use of systemic steroids; Z79.899 Other long term (current) drug therapy; Z82.49 Family history of ischemic heart disease and other diseases of the circulatory system; Z86.14 Personal history of Methicillin resistant Staphylococcus aureus infection; Z87.442 Personal history of urinary calculi; Z87.891 Personal history of nicotine dependence; L40.9 Psoriasis, unspecified; Z91.09 Other allergy status, other than to drugs and biological substances; E87.5 Hyperkalemia; L53.9 Erythematous condition, unspecified

== ENCOUNTER 2017-10-15 23:32 | Emergency (ER) | payer OTHER ==
[2017-10-15 23:32] VITALS: BMI 37.7
[2017-10-15 23:51] VITALS: TEMP 98.7
--- NOTE | 2017-10-16 00:22 | ED PDOC ---
Arrival/HPI - General Chief Complaint: Back Pain Time Seen by Provider: 10/16/17 00:01 Historian: Patient - History of Present Illness Narrative History of Present Illness (Text): 10/16/17 00:19 Luke Deleon is a 37 year old male whose past medical history includes acute renal failure due to allergic reaction to ASA, Chronic back pain, presents to the emergency department complaining of exacerbation of lower back pain that radiates to b/l lower extremity x 2 weeks. Patient stated pain has been progressively worsen. Patient denies fever, illegal IV drug use, weakness, paresthesias, saddle anesthesia, urinary retention, urinary symptoms, abnormal gait, Time/Duration: Other (see hpi) Quality: Aching Context: Home Past Medical History - Provider Review Nursing Documentation Reviewed: Yes - Past History Past History: Non-Contributing - Infectious Disease Hx of Infectious Diseases: None - Tetanus Immunization Tetanus Immunization: >10 years Ago - Past Medical History Past Medical History: Non-Contributing - Cardiac Hx Cardiac Disorders: No Hx Hypertension: Yes - Pulmonary Hx Respiratory Disorders: No - Neurological Hx Neurological Disorder: No - HEENT Hx HEENT Disorder: Yes (eyeglasses) - Renal Hx Renal Disorder: No - Endocrine/Metabolic Hx Endocrine Disorders: No - Hematological/Oncological Hx Blood Disorders: No - Integumentary Hx Dermatological Disorder: Yes (Psoriasis (Left Forearm and Scrotum)) Hx Eczema: Yes Hx Psoriasis: Yes Other/Comment: psoriasis scalp, face, arms legs abd eyebrows testicles chest multiple dry patches of skin, pt suffered 2nd and 3rd degree nam to right hand 2 or 3 yrs ago while cooking, 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 - Musculoskeletal/Rheumatological Hx Back Pain: Yes (herniated discs) Hx Falls: No - Gastrointestinal Hx Gastrointestinal Disorders: No - Genitourinary/Gynecological Hx Genitourinary Disorders: No - Psychiatric Hx Psychophysiologic Disorder: No Hx Substance Use: No - Past Surgical History Past Surgical History: Non-Contributing - Surgical History Other/Comment: 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 - Anesthesia Hx Anesthesia: No - Suicidal Assessment Feels Threatened In Home Enviroment: No Family/Social History - Physician Review Nursing Documentation Reviewed: Yes Family/Social History: Other (noncontributory) Smoking Status: Former Smoker Hx Alcohol Use: No (5 or 6 drinks a year) Hx Substance Use: No Hx Substance Use Treatment: No Allergies/Home Meds Allergies/Adverse Reactions: Allergies aspirin Allergy (Verified 10/15/17 23:45) ANAPHYLAXIS sun Allergy (Uncoded 10/15/17 23:45) SWELLING Home Medications: Home Meds Medication Instructions Recorded Confirmed Biotin [John Biotin] 10,000 mcg PO DAILY 10/16/17 10/16/17 Equate 1 tab PO DAILY 10/16/17 10/16/17 Gemfibrozil [Lopid] 600 mg PO BID 10/16/17 10/16/17 Metformin HCl [Glucophage] 500 mg PO DAILY 10/16/17 10/16/17 Simvastatin [Zocor] 20 mg PO DAILY 10/16/17 10/16/17 Review of Systems - Review of Systems Constitutional: Normal. absent: Fatigue, Weight Change, Fevers Eyes: Normal ENT: Normal Respiratory: Normal. absent: SOB, Cough Cardiovascular: Normal. absent: Chest Pain, Palpitations Gastrointestinal: Normal. absent: Abdominal Pain, Constipation, Diarrhea, Nausea, Vomiting Genitourinary Male: Normal. absent: Dysuria, Frequency, Hematuria Musculoskeletal: Back Pain. absent: Neck Pain, Joint Swelling Skin: Normal Neurological: Normal. absent: Headache, Dizziness, Focal Weakness, Gait Changes , Speech Changes, Facial Droop, Disequilibrium, Seizure Endocrine: Normal Hemo/Lymphatic: Normal Psychiatric: Normal Physical Exam Vital Signs Temp Pulse Resp BP Pulse Ox 10/16/17 02:42 66 16 115/54 L 98 10/16/17 00:57 86 30 H 121/70 100 10/15/17 23:46 98.7 F 126 H 22 133/85 99 Temperature: Afebrile Blood Pressure: Normal Pulse: Regular Respiratory Rate: Normal Appearance: Positive for: Well-Appearing, Non-Toxic, Comfortable Pain Distress: None Mental Status: Positive for: Alert and Oriented X 3 - Systems Exam Head: Present: Atraumatic, Normocephalic Pupils: Present: PERRL Extroacular Muscles: Present: EOMI Conjunctiva: Present: Normal Mouth: Present: Moist Mucous Membranes Neck: Present: Normal Range of Motion Respiratory/Chest: Present: Clear to Auscultation, Good Air Exchange. No: Respiratory Distress, Accessory Muscle Use Cardiovascular: Present: Regular Rate and Rhythm, Normal S1, S2. No: Murmurs Abdomen: No: Tenderness, Distention, Peritoneal Signs Back: Present: Normal Inspection Upper Extremity: Present: Normal Inspection. No: Cyanosis, Edema Lower Extremity: Present: Normal Inspection. No: Edema Neurological: Present: GCS=15, CN II-XII Intact, Speech Normal, Motor Func Grossly Intact, Normal Sensory Function, Normal Cerebellar Funct, Gait Normal ( with pain during ambulation), Memory Normal Skin: Present: Warm, Dry, Normal Color. No: Rashes Psychiatric: Present: Alert, Oriented x 3, Normal Insight, Normal Concentration Medical Decision Making ED Course and Treatment: 10/16/17 02:26 Re-evaluation. Patient feels better. Discussed results and plan with patient who expresses understanding. All questions answered and there is agreement with the plan to discharge home with instructions. Patient stable for discharge. Return if symptoms persist or worsen. Patient felt better after treated with Dilaudid. Patient has a normal gait. No neuro focal deficits. Patient is agreeable to follow up Dr. Mckeon tomorrow for revaluation. Patient was recommended to return to ED if symptoms worsen. Re-evaluation Time: 02:27 Reassessment Condition: Re-examined, Improved - Lab Interpretations Lab Results: 10/16/17 00:40 10/16/17 00:40 Lab Results 10/16/17 01:05: Urine Color Yellow, Urine Appearance Clear, Urine pH 7.5, Ur Specific [place] 1.015, Urine Protein Negative, Urine Glucose (UA) Negative, Urine Ketones 15 H, Urine Blood Negative, Urine Nitrate Negative, Urine Bilirubin Negative, Urine Urobilinogen 0.2, Ur Leukocyte Esterase Negative 10/16/17 00:40: Sodium 145, Potassium 4.0, Chloride 104, Carbon Dioxide 22, Anion Gap 22 H, BUN 26 H, Creatinine 1.0, Est GFR ( Amer) > 60, Est GFR ( Non-Af Amer) > 60, Random Glucose 94, Calcium 10.2, Total Bilirubin 0.5, AST 25 , ALT 50, Alkaline Phosphatase 73, Total Protein 7.8, Albumin 4.8, Globulin 3.0 , Albumin/Globulin Ratio 1.6 10/16/17 00:40: WBC 6.6, RBC 5.34, Hgb 15.4, Hct 42.6, MCV 79.8 L, MCH 28.8, MCHC 36.2, RDW 12.3, Plt Count 218, MPV 9.9, Gran % 62.4, Lymph % (Auto) 28.9, Cole % (Auto) 7.0 H, Eos % (Auto) 1.2 L, Baso % (Auto) 0.5, Gran # 4.10, Lymph # (Auto) 1.9, Cole # (Auto) 0.5, Eos # (Auto) 0.1, Baso # (Auto) 0.03 I have reviewed the lab results: Yes Interpretation: No clinic. lab abnormalty - RAD Interpretation Narrative RAD Interpretations (Text): 10/16/17 01:58 FINDINGS: Vertebrae: No acute fracture. Discs/spinal canal/neural foramina: Mild degenerative disc disease at L4-L5 level. Disc herniation at L4-L5 level. Severe central canal stenosis at L4-L5 level. Left neuroforaminal narrowing at L5-S1 level. Soft tissues: Unremarkable. Other findings: Probable bone island. IMPRESSION: 1. No fracture. 2. If back pain persists, consider MRI for further evaluation. 3. Incidental/non-acute findings are described above. Radiology Orders: 10/16/17 00:24 LUMBAR SPINE W/O CONTRAST [CT] Stat - Medication Orders Current Medication Orders: Discontinued Medications Hydromorphone HCl (Dilaudid) 1 mg IVP STAT STA Stop: 10/16/17 00:26 Last Admin: 10/16/17 00:39 Dose: 1 mg MAR Pain Assessment Document 10/16/17 00:39 CNR (Rec: 10/16/17 00:42 CNR [id number]) Pain Reassessment Is this a pain reassessment? No IVP Administration Document 10/16/17 00:39 CNR (Rec: 10/16/17 00:42 CNR [id number]) Charges for Administration # of IVP Administrations 1 Sodium Chloride (Sodium Chloride 0.9%) 1,000 mls @ 999 mls/hr IV .Q1H1M STA Stop: 10/16/17 01:24 Last Admin: 10/16/17 00:42 Dose: 999 mls/hr eMAR Start Stop Document 10/16/17 00:42 CNR (Rec: 10/16/17 00:42 CNR [id number]) Intravenous Solution Start Date 10/16/17 Start Time 00:42 Ondansetron HCl (Zofran Inj) 4 mg IVP STAT STA Stop: 10/16/17 00:26 Last Admin: 10/16/17 00:42 Dose: 4 mg IVP Administration Document 10/16/17 00:42 CNR (Rec: 10/16/17 00:42 CNR [id number]) Charges for Administration # of IVP Administrations 1 Oxycodone/Acetaminophen (Percocet 10/325 Mg Tab) 1 tab PO STAT STA Stop: 10/16/17 02:27 Last Admin: 10/16/17 02:37 Dose: 1 tab MAR Pain Assessment Document 10/16/17 02:37 CNR (Rec: 10/16/17 02:37 CNR [id number]) Pain Reassessment Is this a pain reassessment? No Disposition/Present on Arrival - Present on Arrival Any Indicators Present on Arrival: No History of DVT/PE: No History of Uncontrolled Diabetes: No Urinary Catheter: No History of Decub. Ulcer: No History Surgical Site Infection Following: None - Disposition Have Diagnosis and Disposition been Completed?: Yes Diagnosis: Back pain, Chronic back pain Disposition: HOME/ ROUTINE Disposition Time: 02:27 Patient Plan: Discharge Condition: IMPROVED Discharge Instructions (ExitCare): Chronic Pain (DC) Additional Instructions: Call private doctor for follow up visit tomorrow. Take medication as instructed. Return to emergency if symptoms worsen. Prescriptions: oxyCODONE/Acetaminophen [Percocet 5/325 mg Tab] 1 tab PO Q4H PRN #5 tab PRN Reason: Pain, Severe (8-10) Referrals: Charis Cameron MD [Primary Care Provider] - Follow up with primary Forms: [employer] ([place]), WORK NOTE
[2017-10-16] MEDS ORDERED: Sodium Chloride 0.9% 1,000 ML IV STA (00:24)
[2017-10-16] MEDS ORDERED: HYDROmorphone 1 mg/ml ISec IVP STA (00:25)
[2017-10-16 00:55] LABS: BASO # 0.03 K/mm3 (0.0-2.0); BASO % 0.5 % (0.0-3.0); EOS # 0.1 (0.0-0.7); EOS % 1.2 % (1.5-5.0); GRAN # 4.1 (1.4-6.5); GRAN % 62.4 % (50.0-68.0); HEMOGLOBIN 15.4 g/dL (14.0-18.0); LYMPH # 1.9 (1.2-3.4); LYMPH % 28.9 % (22.0-35.0); MEAN CELL VOLUME 79.8 fl (80.0-105.0); MEAN CORPUSCULAR HEMOGLOBIN 28.8 pg (25.0-35.0); MEAN CORPUSCULAR HGB CONC 36.2 g/dl (31.0-37.0); MEAN PLATELET VOLUME 9.9 fl (7.0-11.0); MONO # 0.5 (0.1-0.6); RBC 5.34 10^6/uL (3.5-6.1); RED CELL DISTRIBUTION WIDTH 12.3 % (11.5-14.5); WHITE BLOOD COUNT 6.6 10^3/ul (4.5-11.0)
[2017-10-16 01:01] LABS: ALB/GLOB RATIO 1.6 (1.1-1.8); ALBUMIN 4.8 g/dL (3.0-4.8); ALT/SGPT 50 U/L (7-56); AST/SGOT 25 U/L (17-59); BLOOD UREA NITROGEN 26 mg/dL (7-21); CALCIUM 10.2 mg/dL (8.4-10.5); GFR AFRICAN-AMERICAN > 60; GFR NON-AFRICAN AMERICAN > 60
[2017-10-16 01:29] LABS: PH,URINE 7.5 (4.7-8.0); URINE BILIRUBIN NEGATIVE (NEGATIVE); URINE BLOOD NEGATIVE (NEGATIVE); URINE GLUCOSE (UA) NEGATIVE (NEGATIVE); URINE LEUKOCYTE ESTERASE NEGATIVE Leu/uL (NEGATIVE); URINE PROTEIN NEGATIVE mg/dL (<30 mg/dL); URINE UROBILINOGEN 0.2 E.U./dL (<1 E.U./dL)
[2017-10-16 01:32] LABS: URINE APPEARANCE CLEAR (CLEAR); URINE COLOR YELLOW (YELLOW)
--- NOTE | 2017-10-16 01:48 | CT ---
EXAM: CT Lumbar Spine Without Intravenous Contrast CLINICAL HISTORY: 37 years old, male; Pain; Low back pain; Additional info: B/l lower back pain TECHNIQUE: Axial computed tomography images of the lumbar spine without intravenous contrast. All CT scans at this facility use one or more dose reduction techniques, viz.: automated exposure control; ma/kV adjustment per patient size (including targeted exams where dose is matched to indication; i.e. head); or iterative reconstruction technique. Coronal and sagittal reformatted images were created and reviewed. COMPARISON: No relevant prior studies available. FINDINGS: Vertebrae: No acute fracture. Discs/spinal canal/neural foramina: Mild degenerative disc disease at L4-L5 level. Disc herniation at L4-L5 level. Severe central canal stenosis at L4-L5 level. Left neuroforaminal narrowing at L5-S1 level. Soft tissues: Unremarkable. Other findings: Probable bone island. IMPRESSION: 1. No fracture. 2. If back pain persists, consider MRI for further evaluation. 3. Incidental/non-acute findings are described above.
[2017-10-16] MEDS ORDERED: Oxycodone/Acetaminophen 10/325 mg Tab PO STA (02:26)
[2017-10-16 02:46] VITALS: BP 115/54; PULSE 66; RESP 16; O2SAT 98
== END 2017-10-16 02:42 | disposition home or self-care (01) ==
LOC: ED 23:32
DX: M54.5 Low back pain (principal); G89.29 Other chronic pain
CPT/HCPCS: 72131; 80053; 81003; 85025; 96374; 96375; 99283; J1170; J2405; J7040